=== PATIENT | female | born 1940 | race Caucasian/White ===

== ENCOUNTER → 2017-02-06 13:04 | Outpatient (CLI) | payer MEDICARE, OTHER ==
[2015-10-30 10:41] VITALS: BMI 30.6
[~2017-02-06 13:04] MED LIST: ACETAMINOPHEN500 M1 PO; ASPIRIN81 MG PO; BACTRIM DS TABL1 TAB PO; BENADRYL25 MG PO; BOUDREAUXS113 GM TP; COMBIGAN OPHT DR5 ML; COMBIGAN OPHT DR5 ML EACH EYE; COUMADIN4 MG; COUMADIN5 MG PO; DULCOLAX10 MG/SUPP RC; ELAVIL10 MG PO; FLAGYL500 MG PO; HEPARIN SOD5000 U/ML SQ; ICAPS AREDS1 TAB.SA; MELATONIN 3 MG1 TAB PO; MILK OF MAGNESI30 ML PO; MIRALAX17 GM PO; NARCAN INJ0.4 MG/ML IV; NORCO 10/325 TA1 TA1 PO; NORCO 5/325 TAB1 TA1 PO; OCUVITE PRESERV1 TAB PO; ONDANSETRON4 MG/2 M3 IV; OYSCO 500+D TAB1 TAB PO; PLAVIX75 MG PO; PRAVACHOL20 MG PO; PROCARDIA XL 3030 MG; PROCARDIA XL 3030 MG PO; PROCARDIA XL60 MG PO; PROTEIN LIQUID30 ML PO; SANTYL30 GM TP; SENOKOT-S TABLE1 TAB PO; TORADOL30 MG/ML IV; TYLENOL W/CODEI1 TAB PO; ZETIA10 MG PO; ZOFRAN4 MG PO; [UNRECOGNIZED DRUG - OTHER]; [UNRECOGNIZED DRUG - OTHER]
== END | disposition home or self-care (01) ==
LOC: D.CT 13:04
DX: I74.8 Embolism and thrombosis of other arteries (principal)

== ENCOUNTER 2017-03-05 18:29 | Observation (INO) | payer MEDICARE, OTHER ==
[~2017-03-05] VITALS: Ht 160 cm; Wt 80.0 kg
--- NOTE | 2017-03-05 19:05 | NUR ---
RECEIVED PT VIA WC FROM ADMISSIONS, PT TO ROOM 1221 PER ADMISSIONS STAFF
--- NOTE | 2017-03-05 19:09 | NUR ---
UPON ENTERING ROOM, PT IS SITTING UP IN RECLINER, PT CHANGED INTO GOWN, PT TO BED, ADMITTING ASSESSMENT, HISTORY AND MED REC INITIATED
[2017-03-05 19:38] VITALS: BP 148/72; Ht 160 cm; Wt 80.0 kg
--- NOTE | 2017-03-05 20:00 | NUR ---
ASSESSMENT, HISTORY AND MED REC COMPLETED, PT ORIENTED TO ROOM, BED IN LOW POSITION, SIDE RAILS X 2, CALL LIGHT IN REACH
--- NOTE | 2017-03-05 20:30 | NUR ---
PT OPTICS ENGINEER LIGHT, PT UP TO BR WITH ASSISTANCE, GAIT STEADY, VOIDED AND HAD BM BY SELF WITH NO DIFFICULTY, PT BACK TO BED, BED IN LOW POSITION, SIDE RAILS X 2, CALL LIGHT IN REACH
--- NOTE | 2017-03-05 21:10 | NUR ---
INFORMED PT THAT I WILL ADM MEDS WHEN RECEIVED FROM PHARMACY, PT VERBALIZES UNDERSTANDING, REQUESTED AND SERVED SANDWICH TRAY AND FRESH H20, PT DENIES FURTHER NEEDS
--- NOTE | 2017-03-05 21:12 | NUR ---
LAB TO ROOM FOR BLOOD DRAW
--- NOTE | 2017-03-05 21:16 | NUR ---
PT TO X-RAY FOR CT VIA WC
[2017-03-05 21:25] LABS: BASOPHILS 0.2 % (0-2); EOSINOPHILS 2.6 % (0-7); HEMOGLOBIN 12.7 g/dL (12-16); IMMATURE GRANULOCYTES 0.2 % (0-5); LYMPHOCYTES 38.5 % (15-50); MCH 29.9 pg (26.0-34.0); MCHC 31.8 g/dL (31.0-37.0); MCV 94.1 fL (80.0-100.0); MEAN PLATELET VOLUME 9.6 fL (7.4-10.4); NEUTROPHILS 47.5 % (40-80); PLATELET COUNT 171 10x3/uL (130-400); RBC 4.25 10x6/uL (4.00-5.40); RDW 14.1 % (11.5-14.5); WBC 4.9 10x3/uL (4.8-10.8)
--- NOTE | 2017-03-05 21:30 | NUR ---
PT BACK TO ROOM, SITTING ON SIDE OF BED TO EAT SANDWICH TRAY
[2017-03-05 21:40] LABS: ANION GAP 11.6 mmol/L (8-16); CALCIUM 8.8 mg/dL (8.5-10.1); CARBON DIOXIDE 27.5 mmol/L (21.0-32.0); CREATININE - SERUM 1.4 mg/dL (0.6-1.3); POTASSIUM - SERUM 4.1 mmol/L (3.5-5.1)
--- NOTE | 2017-03-05 21:50 | NUR ---
PT FINISHED EATING SANDWICH, LAYING BACK DOWN, SCD'S APPLIED AND WORKING PROPERLY, STATES "THAT SANDWICH WAS SO GOO, I WAS VERY HUNGRY", PT DENIES FURTHER NEEDS
--- NOTE | 2017-03-05 21:50 | NUR ---
LATE ENTRY: BED ALARM ON AND WORKING PROPERLY
--- NOTE | 2017-03-05 22:05 | NUR ---
TELEMETRY PLACED PER MD ORDERS
--- NOTE | 2017-03-05 22:14 | NUR ---
PT RESTING WITH EYES CLOSED, AROUSES TO SOFT VERBAL STIMULATION, ADM 2100 MEDS PER MD ORDERS, PT REPORTS THAT EYES DROPS HAVE TO BE ADM AT LEAST 20 MINUTES APART, INFORMED PT THAT I WILL BE BACK IN ABOUT 30 MINUTES THEN, PT VERBALIZES UNDERSTANDING, DENIES NEEDS AT THIS TIME
--- NOTE | 2017-03-05 22:20 | NUR ---
DR KELLEY TO ROOM FOR EVALUATION
--- NOTE | 2017-03-05 22:25 | NUR ---
DR KELLEY OUT OF ROOM AND AT COMPUTER
[2017-03-05] MEDS ORDERED: TRAVATAN Z2.5 ML EACH EYE (22:27)
[2017-03-05 22:45] VITALS: BP 117/61
--- NOTE | 2017-03-05 22:45 | NUR ---
PT RESTING WITH EYES CLOSED, AROUSES TO SOFT VERBAL STIMULATION, TRAVATON ADM TO BOTH EYES, PT REQUESTS THAT I TAKE VS AT THIS TIME, SO SHE CAN GET SOME REST, VS OBTAINED, PT DENIES FURTHER NEEDS OR PAIN AT THIS TIME
--- NOTE | 2017-03-06 00:05 | NUR ---
NEURO CHECK DONE, SCD'S AND BED ALARM CONTINUE ON AND WORKING PROPERLY
--- NOTE | 2017-03-06 02:00 | NUR ---
PT WARRANT SERVER LIGHT, SCD'S DISCONNECTED, PT UP TO BR WITH ASSISTANCE, VOIDED BY SELF WITH NO DIFFICULTY, PT BACK TO BED, SCD'S RECONNECTED AND WORKING PROPERLY, BED ALARM BACK ON, DENIES FURTHER NEEDS
[2017-03-06 04:20] VITALS: BP 112/52
--- NOTE | 2017-03-06 04:20 | NUR ---
PT RESTING WITH EYES CLOSED, AROUSES TO SOFT VERBAL STIMUALTION, VS OBTAINED, NEURO CHECK DONE, SCD'S DISCONNECTED, PT UP TO BR WITH ASSISTANCE, PT VOIDED BY SELF WITH NO DIFFICULTY, PT BACK TO BED, SCD'S RECONNECTED AND WORKING PROPERLY, BED ALARM ON AND WORKING PROPERLY, PT DENIES FURTHER NEEDS
--- NOTE | 2017-03-06 05:43 | NUR ---
PT RESTING WITH EYES CLOSED, RESP QUIET, NO DISTRESS NOTED, LEFT UNDISTURBED AT THIS TIME
--- NOTE | 2017-03-06 07:00 | NUR ---
SHIFT REPORT TO SOL MCKEON RN
--- NOTE | 2017-03-06 07:30 | NUR ---
PT WAS RECEIVED LYING IN BED. SHE RESTED WELL. VSS. GEN- AWAKE AND ALERT. LUNGS- CLEAR. HEART- RRR. ABD- SOFT , NONTENDER. BS+. EXT WITH SCD'S INTACT. PULSES PALPABLE. BED ALARM IS ON DUE TO PT BEING A FALL RISK. TELEMETRY INTACT. NEURO CHECK -NORMAL. BED IS LOW. SIDE RAILS UP X 2 AND CALL LIGHT IN REACH. PAIN LEVEL IS 0
[2017-03-06 07:45] VITALS: BP 137/69
--- NOTE | 2017-03-06 08:12 | NUR ---
ASSISTED PT TO BATHROOM. THEN BACK TO BED. ASSISTED WITH MENU SELECTIONS. PT REQUESTED TO REST BEFORE ANY FURTHER CARE
--- NOTE | 2017-03-06 08:23 | HP ---
PATIENT: RADHA KNIGHT MEDICAL RECORD: [id number] ACCOUNT: [id number] LOCATION:[address] : 38 ADMISSION DATE: 03/05/17 HISTORY AND PHYSICAL EXAMINATION Admission History and Physical DATE OF ADMISSION: 03/05/2017 CHIEF COMPLAINT: Headache. HISTORY OF PRESENT ILLNESS: This is a 76-year-old female, who fell yesterday at [facility] when she got caught up in a wheelchair. She hit her head on the carpeted floor. She denies loss of consciousness and she stayed for the rest of a recital there, but just felt worn out at the end of the day, and she went home. She really did not have much of a headache until this morning and it has gotten worse as the day went on. Her vision was "kind of foggy." She has been having trouble reading today, but she does have glaucoma and she states cataracts as well as macular degeneration. She sees Dr. Sharpe for her eyes. She has had some nausea, but no vomiting. She is on a baby aspirin once a day. PAST MEDICAL HISTORY: Significant for a right posterior MCA stroke and also in September 2015, she fell, hit her head and had a small intracranial hemorrhage. She is admitted for observation, neuro checks and further evaluation. PAST MEDICAL HISTORY AND PAST SURGICAL HISTORY: Arthritis, coronary artery disease, high cholesterol, hypertension, glaucoma, chronic kidney disease, history of diverticulitis, history of right posterior MCA stroke, history of small intracranial hemorrhage, status post fall in September 2015. PAST SURGICAL HISTORY: She has had cholecystectomy, hysterectomy, bilateral knee replacements, bilateral hip replacements and 2 coronary stents. HABITS: Former smoker, occasional wine. No illicit drugs. SOCIAL HISTORY: She is and retired. FAMILY HISTORY: Father at 65 of an [place]. Mother at 72 of lung cancer. REVIEW OF SYSTEMS: GENERAL: Denies fever or chills. HEENT: No sinus or allergy infection symptoms. She does have headaches and some blurry vision. She does have a history of cataracts and glaucoma. She states now some macular degeneration. CARDIOVASCULAR: No chest pain. RESPIRATORY: No cough or shortness of breath. GASTROINTESTINAL: No abdominal pain. She has had some nausea, but no vomiting. NEUROLOGIC: No blackouts, no fainting, no loss of consciousness. No tingling, memory loss or speech disorders. PHYSICAL EXAMINATION: VITAL SIGNS: Today, temperature 98.4, pulse 73, respirations 16, blood pressure 148/72, O2 sat was 98%. In my office, she was given a dose of 500 mg of Tylenol for her headache. HEENT: TMs with cerumen occlusion bilaterally. Eyes: PERRL, EOMI. HISTORY AND PHYSICAL [id number] RADHA KNIGHT Funduscopic exam is difficult with her history of cataracts and repair. NOSE AND THROAT: Okay. NECK: Supple. No JVD or bruit. Neck with no significant tenderness to palpation of the posterior neck. HEART: Regular rate and rhythm without murmur. LUNGS: Clear. ABDOMEN: Soft, flat, nontender. EXTREMITIES: Field Technical Specialist strength is 5/5 bilaterally. NEUROLOGIC: Cranial nerves, she had a history of Medina palsy, had history of stroke and she does have some mild right facial droop. Deep tendon reflexes in the upper or lower extremities are symmetric. Field Technical Specialist strength is symmetric. LABORATORY DATA: Done in the hospital tonight. CBC is all normal. Basic metabolic panel is normal except BUN is 27 and creatinine 1.4. RADIOLOGIC DATA: CT of the head and neck are pending. ASSESSMENT: Unspecified fall and with initial encounter today in my office, this fall happened on 03/04/2017 at a [facility]arsani. She is having headaches now. PLAN: We will observe, place her on telemetry, neuro checks, check CT of the head and neck. Other tests and procedures as warranted. TRANSINT:[id number] Voice Confirmation ID: [id number] DOCUMENT ID: [id number] BRENDA KELLEY MD at 0823 CC: [id number] DICTATION DATE: 03/05/172232 PANTOGRAPH MACHINE OPERATOR: 03/06/17 0146 ADM IN [facility] [address] [place] [address]
[2017-03-06] MEDS ORDERED: TYLENOL W/CODEI1 TAB PO (08:27)
--- NOTE | 2017-03-06 09:03 | NUR ---
D/C INSTRUCTIONS GIVEN AND EXPLAINED TO PT WITH RX GIVEN. . PT WAITING ON TO PICK HER UP.
--- NOTE | 2017-03-06 09:36 | NUR ---
PT STATES SHE WILL TAKE MORNING MEDS WHEN SHE GETS HOME.
--- NOTE | 2017-03-06 09:48 | NUR ---
to car via w/c . family here to drive pt home().
== END 2017-03-06 09:48 | disposition home or self-care (01) ==
LOC: D.WS 18:29 → OBSVTIME 19:05 → D.WS 03-06 09:48
PROVIDERS: ADMIT Family Medicine
DX: R51 Headache (principal); E78.5 Hyperlipidemia, unspecified; I12.9 Hypertensive chronic kidney disease with stage 1 through stage 4 chronic kidney disease, or unspecified chronic kidney disease; N18.9 Chronic kidney disease, unspecified; W18.30XA Fall on same level, unspecified, initial encounter; Y92.22 Religious institution as the place of occurrence of the external cause; Z87.891 Personal history of nicotine dependence

== ENCOUNTER 2017-09-09 13:27 | Emergency (ER) | payer MEDICARE, OTHER ==
[2017-03-05 19:38] VITALS: BMI 31.2
[~2017-09-09 13:27] MED LIST changes: +TRAVATAN Z2.5 ML EACH EYE
== END 2017-09-09 15:45 | disposition home or self-care (01) ==
LOC: D.ER 13:27
DX: S09.90XA Unspecified injury of head, initial encounter (principal); W07.XXXA Fall from chair, initial encounter; Y93.89 Activity, other specified; Y92.029 Unspecified place in mobile home as the place of occurrence of the external cause

== ENCOUNTER 2018-06-04 08:00 | Outpatient (CLI) | payer MEDICARE, OTHER ==
[2018-06-04] MEDS ORDERED: MACRODANTIN100 MG PO (08:30)
[2018-06-04 09:26] LABS: BASOPHILS 0.3 % (0-2); EOSINOPHILS 1.7 % (0-7); HEMATOCRIT 40.8 % (36.0-48.0); HEMOGLOBIN 13.6 g/dL (12-16); IMMATURE GRANULOCYTES 0.2 % (0-5); MCH 31.3 pg (26.0-34.0); MCHC 33.3 g/dL (31.0-37.0); MEAN PLATELET VOLUME 9.5 fL (7.4-10.4); NEUTROPHILS 65.8 % (40-80); PLATELET COUNT 186 10x3/uL (130-400); RBC 4.34 10x6/uL (4.00-5.40); RDW 13.3 % (11.5-14.5); WBC 5.8 10x3/uL (4.8-10.8)
[2018-06-04 09:37] LABS: ANION GAP 14.1 mmol/L (8-16); CALCIUM 9.3 mg/dL (8.5-10.1); CARBON DIOXIDE 27.4 mmol/L (21.0-32.0); POTASSIUM - SERUM 4.5 mmol/L (3.5-5.1)
[2018-06-04 10:06] LABS: APPEARANCE HAZY (CLEAR); BILIRUBIN NEGATIVE (NEGATIVE); COLOR YELLOW (YELLOW); GLUCOSE NEGATIVE (NEGATIVE); KETONE NEGATIVE (NEGATIVE); NITRITE NEGATIVE (NEGATIVE); PROTEIN NEGATIVE (NEGATIVE); SPECIFIC GRAVITY 1.015 (1.005-1.020); UROBILINOGEN NORMAL (NORMAL)
[2018-06-04 10:10] LABS: WHITE CELLS - URINE >50 /hpf (0-5)
[2018-06-04 10:11] LABS: BACTERIA MANY /hpf (NONE SEEN); HYALINE CAST OCC /lpf (NONE SEEN); RED CELLS - URINE OCC /hpf (0-5)
[2018-06-26] MEDS ORDERED: ZOFRAN ODT4 MG/UDTAB PO (13:49)
[2018-06-27 06:45] VITALS: BMI 28.0
== END 2018-06-04 08:01 | disposition home or self-care (01) ==
LOC: D.OPS 08:00 → D.PAN 06-05 08:40 → EDSTATUS 06-05 08:40 → D.OPS 06-05 10:00
PROVIDERS: Anesthesiology; Urology
DX: R39.81 Functional urinary incontinence (principal); Z01.810 Encounter for preprocedural cardiovascular examination; Z01.811 Encounter for preprocedural respiratory examination; Z01.812 Encounter for preprocedural laboratory examination

== ENCOUNTER → 2018-06-21 17:17 | Outpatient (CLI) | payer MEDICARE, OTHER ==
[2017-03-05 19:38] VITALS: BMI 31.2
[~2018-06-21 17:17] MED LIST changes: +MACRODANTIN100 MG PO; +ZOFRAN ODT4 MG/UDTAB PO
== END | disposition home or self-care (01) ==
LOC: D.CT 17:00
DX: R51 Headache (principal); R11.0 Nausea

== ENCOUNTER 2018-06-27 05:57 | Day surgery (SDC) | payer MEDICARE, OTHER ==
[2018-06-26 14:24] LABS: APPEARANCE CLEAR (CLEAR); BASOPHILS 0.4 % (0-2); COLOR YELLOW (YELLOW); EOSINOPHILS 2.1 % (0-7); HEMATOCRIT 39.6 % (36.0-48.0); HEMOGLOBIN 12.7 g/dL (12-16); IMMATURE GRANULOCYTES 0.2 % (0-5); LYMPHOCYTES 31.5 % (15-50); MCH 30.4 pg (26.0-34.0); MCHC 32.1 g/dL (31.0-37.0); MCV 94.7 fL (80.0-100.0); MEAN PLATELET VOLUME 9.2 fL (7.4-10.4); MONOCYTES 9.2 % (2-11); NEUTROPHILS 56.6 % (40-80); NITRITE NEGATIVE (NEGATIVE); PLATELET COUNT 219 10x3/uL (130-400); RBC 4.18 10x6/uL (4.00-5.40); RDW 12.7 % (11.5-14.5); SPECIFIC GRAVITY 1.015 (1.005-1.020); WBC 5.3 10x3/uL (4.8-10.8)
[2018-06-26 14:25] LABS: BILIRUBIN NEGATIVE (NEGATIVE); GLUCOSE NEGATIVE (NEGATIVE); KETONE NEGATIVE (NEGATIVE); PROTEIN NEGATIVE (NEGATIVE); UROBILINOGEN NORMAL (NORMAL)
[2018-06-26 14:31] LABS: ANION GAP 9.8 mmol/L (8-16); CALCIUM 8.9 mg/dL (8.5-10.1); CARBON DIOXIDE 28.8 mmol/L (21.0-32.0); CREATININE - SERUM 1.6 mg/dL (0.6-1.3); POTASSIUM - SERUM 4.6 mmol/L (3.5-5.1)
[~2018-06-27] VITALS: Ht 162.6 cm; Wt 73.9 kg
--- NOTE | ~2018-06-27 | OP ---
PATIENT NAME: RADHA KNIGHT MEDICAL RECORD: [id number] :36 LOCATION:D.OPS ADMISSION DATE: SURGEON: LEVI SHORE MD DATE OF OPERATION: 06/27/2018 SURGEON: Levi Shore MD ANESTHESIA: MAC. DIAGNOSIS: Urge urinary incontinence. PROCEDURE: Cystoscopy and intravesical Botox injection 100 units. FINDINGS: Single ureteral orifices bilaterally. No bladder tumors. Diffusely inflamed bladder. Cystocele grade II on the Marlin-Walker scale. BLOOD LOSS: None. CLINICAL HISTORY: This is an 78-year-old female who has urge urinary incontinence. She had a urinary tract infection at her last visit which we treated. She was also put on Myrbetriq, which did work, but she cannot afford the cost of Myrbetriq. She wishes to proceed with intravesical Botox injection. We had cardiac clearance from Dr. Rodriguez. SHE IS ALLERGIC TO PENICILLIN, DARVON, CLINDAMYCIN, LEVAQUIN, PROTEIN C, AMMONIUM LACTATE, UREA, TRAMADOL AND MORPHINE. We gave her Ancef 1 gram IV information systems supervisor to the OR. DESCRIPTION OF PROCEDURE: The patient was given IV sedation. She was placed in the dorsal lithotomy position and prepped and draped. We used a 21-Burmese cystoscope with 30-degree lens for visualization. Findings are as outlined above. At 10 different locations, we injected 1 mL of Botox solution. Each milliliter has 10 units of Botox dissolved in it. Once we were done, the bladder was emptied through the scope and the scope was removed. The patient was awakened and brought to the recovery room. I will see her in followup in 2 weeks' time to check on her voiding functions at that point. TRANSINT:[id number] Voice Confirmation ID: [id number] DOCUMENT ID: [id number] LEVI SHORE MD at 0928 CC: [id number] DICTATION DATE: 06/27/18824 ORACLE SOA ARCHITECT: 06/27/18904 [place] [id number] [place] [id number]
[2018-06-27 06:38] VITALS: BP 108/52; BMI 28.0
[2018-06-27 06:45] VITALS: BP 108/52; Ht 162.6 cm; Wt 73.9 kg
== END 2018-06-27 11:50 | disposition home or self-care (01) ==
LOC: D.OPS 05:57 → D.PAN 08:00 → D.OPS 08:00 → D.PAN 09:10 → D.OPS 09:30 → D.PAN 09:30 → D.OPS 11:50
PROVIDERS: Anesthesiology; Urology
DX: N39.41 Urge incontinence (principal); N81.10 Cystocele, unspecified; Z01.812 Encounter for preprocedural laboratory examination

== ENCOUNTER 2018-08-26 15:06 | Inpatient (IN) | payer MEDICARE, OTHER ==
[~2018-08-26] VITALS: Ht 162.6 cm; Wt 77.1 kg
--- NOTE | ~2018-08-26 | MORECARE ---
CASE MANAGEMENT DISCHARGE SUMMARY PATIENT: RADHA KNIGHT KAZ UNIT: [id number] ADM DATE: 08/26/18 AGE: 78 : 38 SEX: F ROOM/BED: D.2204 AUTHOR: KHANH BURGESS PHYSICIAN: REFERRING PHYSICIAN: SYDNIE BUCKNER MD DATE OF SERVICE: 09/03/18 Discharge Plan Patient Name: RADHA KNIGHT Facility: [facility]:[place] : 1940 Planned Disposition: Home Anticipated Discharge Date: Discharge Date: 08/30/2018 Expected LOS: 0 Initial Reviewer: [email or web address] Initial Review Date: 08/26/2018 Generated: 09/03/18 12:03 pm Comments DCP- Discharge Planning Updated by [email or web address]: Tala Denney on 08/30/18 1:[address] Patient Name: RADHA KNIGHT Encounter No: [id number] : 1940 Primary Insurance: MEDICARE A & B Anticipated DC Date: Planned Disposition: Home External Planned Provider: : DCP follow-up note: Patient and family in agreement with discharge plan. No changes to plan. IMM served and explained. Case management will follow and assist as needed. Tala Denney DCP- Discharge Planning Updated by [email or web address]: Tala Denney on 08/27/18 2:[address] Patient Name: RADHA KNIGHT Admission Status: Urgent Accout number: [id number] Admission Date: 08-26-2018 : 1940 Admission Diagnosis: Attending: SYDNIE BUCKNER Current LOS: 1 Anticipated DC Date: Planned Disposition: Home Primary Insurance: MEDICARE A & B Discharge Planning Comments: CM met with patient to assess discharge planning needs. Patient lives with her at home where she plans to return at discharge. There are 3 steps to enter her home> She has a shower chair, elevated toilet seats, shower chair, cane, walker, hand rails at home. She denies any home health at this time and does not think that she will need it at [place]. Her will be the one to take her home. CM will continue to follow and assist with DC planning needs. Social Services Director: Tala Denney DCPIA - Discharge Planning Initial Assessment Updated by [email or web address]: Tala Denney on 08/27/18 2:30 pm * Is the patient Alert and Oriented? Yes * How many steps to enter\exit or inside your home? * PCP SITA * Pharmacy [facility] * Preadmission Environment Home with Family * ADLs Independent * Equipment Bedside Commode Elevated [place] Seat Grab Bars Rolling Walker Shower Chair * List name and contact numbers for known caregivers / representatives who currently or will assist patient after discharge: VINNIE KNIGHT () [phone] * Verbal permission to speak to the caregivers and representatives has been obtained from the patient. Yes * Community resources currently utilized None * Additional services required to return to the preadmission environment? No * Can the patient safely return to the preadmission environment? Yes * Has this patient been hospitalized within the prior 30 days at any hospital? No Coverage Notice Reviewer: [email or web address] - Tala Denney Notice Issued Date-Time: 08/30/2018 13:55 Notice Type: IM Discharge Notice Notice Delivered To: Patient Relationship to Patient: Automatic Quilling Machine Operator Name: Delivery Method: HAND - Hand Delivered [place]an Days: Prior Verbal Notification: Recipient Understood Notice: Yes Recipient Signature: Yes Med Rec Note Co-signed by Attending: Coverage Notice Comment: Last DP export: 08/30/18 2:00 p Patient Name: RADHA KNIGHT Page 93952 at 1103 All edits/amendments must be made on the electronic document DICTATION DATE: 09/03/18 110 JEWELRY COATER: ANEL 09/03/18 1102 RPT#: [id number] CO DATE:08/30/18 STATUS: DIS IN [facility] [address] [place] [address] END OF REPORT
--- NOTE | ~2018-08-26 | MORECARE ---
CASE MANAGEMENT DISCHARGE SUMMARY PATIENT: RADHA KNIGHT KAZ UNIT: [id number] ADM DATE: 08/26/18 AGE: 78 : 38 SEX: F ROOM/BED: D.2205 AUTHOR: KHANH BURGESS PHYSICIAN: REFERRING PHYSICIAN: SYDNIE BUCKNER MD DATE OF SERVICE: 08/27/18 Discharge Plan Patient Name: RADHA KNIGHT Facility: [facility]:[place] : 1940 Planned Disposition: Home Anticipated Discharge Date: Discharge Date: Expected LOS: Initial Reviewer: [email or web address] Initial Review Date: 08/26/2018 Generated: 08/27/18 3:25 pm Patient Name: RADHA KNIGHT Page 18857 at 1425 All edits/amendments must be made on the electronic document DICTATION DATE: 08/27/18 142 CYLINDER BLOCK MECHANIC: ANEL 08/27/18 142 RPT#: [id number] DC DATE: STATUS: ADM IN [facility] [address] [place] [address] END OF REPORT
--- NOTE | ~2018-08-26 | MORECARE ---
CASE MANAGEMENT DISCHARGE SUMMARY PATIENT: RADHA NKIGHT KAZ UNIT: [id number] ADM DATE: 08/26/18 AGE: 78 : 38 SEX: F ROOM/BED: D.220 AUTHOR: KHANH BURGESS PHYSICIAN: REFERRING PHYSICIAN: SYDNIE BUCKNER MD DATE OF SERVICE: 08/27/18 Discharge Plan Patient Name: RADHA KNIGHT Facility: [facility]:[place] : 1940 Planned Disposition: Home Anticipated Discharge Date: Discharge Date: Expected LOS: Initial Reviewer: [email or web address] Initial Review Date: 08/26/2018 Generated: 08/27/18 3:42 pm Comments DCP- Discharge Planning Updated by [email or web address]: Tala Denney on 08/27/18 1:[address] Patient Name: RADHA KNIGHT Admission Status: Urgent Accout number: [id number] Admission Date: 08-26-2018 : 1940 Admission Diagnosis: Attending: SYDNIE BUCKNER Current LOS: 1 Anticipated DC Date: Planned Disposition: Home Primary Insurance: MEDICARE A & B Discharge Planning Comments: CM met with patient to assess discharge planning needs. Patient lives with her at home where she plans to return at discharge. There are 3 steps to enter her home> She has a shower chair, elevated toilet seats, shower chair, cane, walker, hand rails at home. She denies any home health at this time and does not think that she will need it at [place]. Her will be the one to take her home. CM will continue to follow and assist with DC planning needs. Packerhead Machine Operator: Tala Denney DCPIA - Discharge Planning Initial Assessment Updated by [email or web address]: Tala Denney on 08/27/18 2:30 pm * Is the patient Alert and Oriented? Yes * How many steps to enter\exit or inside your home? * PCP SITA * Pharmacy [facility] * Preadmission Environment Home with Family * ADLs Independent * Equipment Bedside Commode Elevated [place] Seat Grab Bars Rolling Walker Shower Chair * List name and contact numbers for known caregivers / representatives who currently or will assist patient after discharge: VINNIE KNIGHT () [phone] * Verbal permission to speak to the caregivers and representatives has been obtained from the patient. Yes * Community resources currently utilized None * Additional services required to return to the preadmission environment? No * Can the patient safely return to the preadmission environment? Yes * Has this patient been hospitalized within the prior 30 days at any hospital? No Last DP export: 08/27/18 1:33 Patient Name: RADHA KNIGHT Page 05467 at 1442 All edits/amendments must be made on the electronic document DICTATION DATE: 08/27/18 144 INVENTORY CONTROL SPECIALIST: ANEL 08/27/18 144 RPT#: [id number] [place] DATE: STATUS: ADM IN [facility] [address] [place] [address] END OF REPORT
--- NOTE | ~2018-08-26 | MORECARE ---
CASE MANAGEMENT DISCHARGE SUMMARY PATIENT: RADHA KNIGHT KAZ UNIT: [id number] ADM DATE: 08/26/18 AGE: 78 : 38 SEX: F ROOM/BED: D.2205 AUTHOR: KHANH BURGESS PHYSICIAN: REFERRING PHYSICIAN: SYDNIE BUCKNER MD DATE OF SERVICE: 08/30/18 Discharge Plan Patient Name: RADHA KNIGHT Facility: [facility]:[place] : 1940 Planned Disposition: Home Anticipated Discharge Date: Discharge Date: Expected LOS: Initial Reviewer: [email or web address] Initial Review Date: 08/26/2018 Generated: 08/30/18 3:00 pm Comments DCP- Discharge Planning Updated by [email or web address]: Tala Denney on 08/30/18 12:[address] Patient Name: RADHA KNIGHT Encounter No: [id number] : 1940 Primary Insurance: MEDICARE A & B Anticipated DC Date: Planned Disposition: Home External Planned Provider: : DCP follow-up note: Patient and family in agreement with discharge plan. No changes to plan. IMM served and explained. Case management will follow and assist as needed. Tala Denney DCP- Discharge Planning Updated by [email or web address]: Tala Denney on 08/27/18 1:[address] Patient Name: RADHA KNIGHT Admission Status: Urgent Accout number: [id number] Admission Date: 08-26-2018 : 1940 Admission Diagnosis: Attending: SYDNIE BUCKNER Current LOS: 1 Anticipated DC Date: Planned Disposition: Home Primary Insurance: MEDICARE A & B Discharge Planning Comments: CM met with patient to assess discharge planning needs. Patient lives with her at home where she plans to return at discharge. There are 3 steps to enter her home> She has a shower chair, elevated toilet seats, shower chair, cane, walker, hand rails at home. She denies any home health at this time and does not think that she will need it at [place]. Her will be the one to take her home. CM will continue to follow and assist with DC planning needs. Blocking Machine Operator: Tala Denney DCPIA - Discharge Planning Initial Assessment Updated by [email or web address]: Tala Denney on 08/27/18 2:30 pm * Is the patient Alert and Oriented? Yes * How many steps to enter\exit or inside your home? * PCP SITA * Pharmacy [facility] * Preadmission Environment Home with Family * ADLs Independent * Equipment Bedside Commode Elevated [place] Seat Grab Bars Rolling Walker Shower Chair * List name and contact numbers for known caregivers / representatives who currently or will assist patient after discharge: VINNIE KNIGHT () [phone] * Verbal permission to speak to the caregivers and representatives has been obtained from the patient. Yes * Community resources currently utilized None * Additional services required to return to the preadmission environment? No * Can the patient safely return to the preadmission environment? Yes * Has this patient been hospitalized within the prior 30 days at any hospital? No Coverage Notice Reviewer: [id number] - Tala Denney Notice Issued Date-Time: 08/30/2018 13:55 Notice Type: IM Discharge Notice Notice Delivered To: Patient Relationship to Patient: Outcome Analyst Name: Delivery Method: HAND - Hand Delivered Hodan Days: Prior Verbal Notification: Recipient Understood Notice: Yes Recipient Signature: Yes Med Rec Note Co-signed by Attending: Coverage Notice Comment: Last DP export: 08/27/18 1:42 Patient Name: RADHA KNIGHT Page 07228 at 1400 All edits/amendments must be made on the electronic document DICTATION DATE: 08/30/18 1400 HOG OPERATOR: ANEL 08/30/18 1400 RPT#: [id number] DC DATE: STATUS: ADM IN [facility] [address] [place] [address] END OF REPORT
--- NOTE | ~2018-08-26 | MORECARE ---
CASE MANAGEMENT DISCHARGE SUMMARY PATIENT: RADHA KNIGHT KAZ UNIT: [id number] ADM DATE: 08/26/18 AGE: 78 : 38 SEX: F ROOM/BED: D.2205 AUTHOR: KHANH BURGESS PHYSICIAN: REFERRING PHYSICIAN: SYDNIE BUCKNER MD DATE OF SERVICE: 08/27/18 Discharge Plan Patient Name: RADHA KNIGHT [facility] [facility] 1940 Planned Disposition: Home Anticipated Discharge Date: Discharge Date: Expected LOS: Initial Reviewer: [email or web address] Initial Review Date: 08/26/2018 Generated: 08/27/18 3:33 pm DCPIA - Discharge Planning Initial Assessment Updated by [email or web address]: Tala Denney on 08/27/18 2:30 pm * Is the patient Alert and Oriented? Yes * How many steps to enter\exit or inside your home? * PCP SITA * Pharmacy [facility] * Preadmission Environment Home with Family * ADLs Independent * Equipment Bedside Commode Elevated [place] Seat Grab Bars Rolling Walker Shower Chair * List name and contact numbers for known caregivers / representatives who currently or will assist patient after discharge: VINNIE KNIGHT () [phone] * Verbal permission to speak to the caregivers and representatives has been obtained from the patient. Yes * Community resources currently utilized None * Additional services required to return to the preadmission environment? No * Can the patient safely return to the preadmission environment? Yes * Has this patient been hospitalized within the prior 30 days at any hospital? No Last DP export: 08/27/18 1:25 Patient Name: RADHA KNIGHT Page 33332 at 1433 All edits/amendments must be made on the electronic document DICTATION DATE: 08/27/181431 EXTRUSION PRESS ADJUSTER: ANEL 08/27/181431 RPT#: [id number] DC DATE: STATUS: ADM IN [facility] [address] [place] [address] END OF REPORT
[2018-08-26] MEDS ORDERED: LUMIGAN 0.01%2.5 ML EACH EYE (15:58)
[2018-08-26] MEDS ORDERED: VOLTAREN100 GM TOPICAL (16:00)
[2018-08-26 16:01] VITALS: BP 159/68; BMI 29.2
[2018-08-26 18:35] LABS: APPEARANCE TURBID (CLEAR); BILIRUBIN NEGATIVE (NEGATIVE); COLOR YELLOW (YELLOW); GLUCOSE NEGATIVE (NEGATIVE); KETONE NEGATIVE (NEGATIVE); NITRITE POSITIVE (NEGATIVE); PROTEIN TRACE mg/dL (NEGATIVE); UROBILINOGEN NORMAL (NORMAL)
[2018-08-26 18:36] LABS: BACTERIA MANY /hpf (NONE SEEN); EPITHELIAL CELLS 0-5 /hpf (0-5); RED CELLS - URINE 0-5 /hpf (0-5); WHITE CELLS - URINE 25-50 /hpf (0-5)
[2018-08-26 21:47] VITALS: BP 142/79
[2018-08-27 04:46] LABS: BASOPHILS 0.2 % (0-2); EOSINOPHILS 2.8 % (0-7); HEMATOCRIT 37.5 % (36.0-48.0); HEMOGLOBIN 12.2 g/dL (12-16); IMMATURE GRANULOCYTES 0.2 % (0-5); LYMPHOCYTES 32.2 % (15-50); MCH 30.6 pg (26.0-34.0); MCHC 32.5 g/dL (31.0-37.0); MEAN PLATELET VOLUME 9.5 fL (7.4-10.4); MONOCYTES 9.7 % (2-11); NEUTROPHILS 54.9 % (40-80); RBC 3.99 10x6/uL (4.00-5.40); RDW 13.4 % (11.5-14.5); WBC 5.4 10x3/uL (4.8-10.8)
[2018-08-27 04:49] LABS: PLATELET COUNT 154 10x3/uL (130-400)
[2018-08-27 04:54] LABS: ANION GAP 10.9 mmol/L (8-16); CALCIUM 8.3 mg/dL (8.5-10.1); CARBON DIOXIDE 27.5 mmol/L (21.0-32.0); CREATININE - SERUM 1.6 mg/dL (0.6-1.3); POTASSIUM - SERUM 4.4 mmol/L (3.5-5.1)
[2018-08-27 05:43] VITALS: BP 156/73
[2018-08-27 08:30] VITALS: BP 156/83
[2018-08-27 10:36] VITALS: Ht 162.6 cm; Wt 77.1 kg
[2018-08-27 12:34] VITALS: BP 144/67
[2018-08-27 15:45] VITALS: BP 133/56
[2018-08-27 20:49] VITALS: BP 154/63
[2018-08-28 00:35] VITALS: BP 152/64
[2018-08-28 04:42] VITALS: BP 124/74
[2018-08-28 08:33] VITALS: BP 159/81
[2018-08-28 12:45] VITALS: BP 110/74
[2018-08-28 22:16] VITALS: BP 150/63
[2018-08-29 04:58] VITALS: BP 156/61
[2018-08-29 11:00] VITALS: BP 149/69
[2018-08-29 16:33] VITALS: BP 140/76
[2018-08-29 21:26] VITALS: BP 130/53
[2018-08-30 05:11] VITALS: BP 164/74
[2018-08-30 08:23] VITALS: BP 154/54
[2018-08-30 12:13] VITALS: BP 131/52
[2018-08-30] MEDS ORDERED: KEFLEX500 MG PO (12:44)
[2018-08-30 16:23] VITALS: BP 140/80
== END 2018-08-30 17:00 | disposition home or self-care (01) | DRG 690 ==
LOC: D.MS 15:06
PROVIDERS: Family Medicine; Student in an Organized Health Care Education/Training Program
DX: N12 Tubulo-interstitial nephritis, not specified as acute or chronic (principal); B96.20 Unspecified Escherichia coli [E. coli] as the cause of diseases classified elsewhere; B96.4 Proteus (mirabilis) (morganii) as the cause of diseases classified elsewhere; N32.0 Bladder-neck obstruction; N39.490 Overflow incontinence; I10 Essential (primary) hypertension; Z87.891 Personal history of nicotine dependence

== ENCOUNTER → 2018-11-01 18:56 | Outpatient (CLI) | payer MEDICARE, OTHER ==
[2018-08-27 10:36] VITALS: BMI 29.2
[~2018-11-01 18:56] MED LIST changes: +KEFLEX500 MG PO; +LUMIGAN 0.01%2.5 ML EACH EYE; +VOLTAREN100 GM TOPICAL
== END | disposition home or self-care (01) ==
LOC: D.LABREF 18:56
DX: R82.5 Elevated urine levels of drugs, medicaments and biological substances (principal)

== ENCOUNTER 2018-11-12 17:30 | Inpatient (IN) | payer MEDICARE, OTHER ==
[~2018-11-12] VITALS: Ht 162.6 cm; Wt 77.0 kg
[2018-11-12 18:58] LABS: BASOPHILS 0.3 % (0-2); EOSINOPHILS 2.3 % (0-7); HEMATOCRIT 41.9 % (36.0-48.0); HEMOGLOBIN 13.5 g/dL (12-16); IMMATURE GRANULOCYTES 0.6 % (0-5); LYMPHOCYTES 26.9 % (15-50); MCH 30.1 pg (26.0-34.0); MCHC 32.2 g/dL (31.0-37.0); MCV 93.5 fL (80.0-100.0); MEAN PLATELET VOLUME 9.8 fL (7.4-10.4); MONOCYTES 8.7 % (2-11); NEUTROPHILS 61.2 % (40-80); PLATELET COUNT 183 10x3/uL (130-400); RBC 4.48 10x6/uL (4.00-5.40); RDW 13.5 % (11.5-14.5); WBC 6.2 10x3/uL (4.8-10.8)
[2018-11-12 20:04] LABS: ALBUMIN 3.4 g/dL (3.4-5.0); ANION GAP 16.4 mmol/L (8-16); BILIRUBIN - TOTAL 0.48 mg/dL (0.2-1.3); CALCIUM 9.1 mg/dL (8.5-10.1); CARBON DIOXIDE 18.9 mmol/L (21.0-32.0); CREATININE - SERUM 1.9 mg/dL (0.6-1.3); POTASSIUM - SERUM 5.3 mmol/L (3.5-5.1); PROTEIN - SERUM 7.2 g/dL (6.4-8.2)
[2018-11-12 20:13] VITALS: BP 151/77
[2018-11-12 20:14] LABS: APPEARANCE CLEAR (CLEAR); COLOR YELLOW (YELLOW); SPECIFIC GRAVITY 1.015 (1.005-1.020)
[2018-11-12 20:15] LABS: BILIRUBIN NEGATIVE (NEGATIVE); GLUCOSE NEGATIVE (NEGATIVE); KETONE NEGATIVE (NEGATIVE); NITRITE NEGATIVE (NEGATIVE); PROTEIN NEGATIVE (NEGATIVE); UROBILINOGEN NORMAL (NORMAL)
[2018-11-12 21:30] VITALS: BP 147/85
--- NOTE | 2018-11-12 22:08 | NUR ---
pt resting without s/s of distress or pain noted
[2018-11-12 22:30] VITALS: BP 165/78
--- NOTE | 2018-11-12 23:00 | NUR ---
PT KEEPS TAKING BP CUFF OFF SPO2 MONITOR OFF AND REFUSES TO WEAR IT. EDUCATED PT ON THE IMPORTANCE OF WEARING MONITOR SHE STATED SHE DID NOT CARE IT HURT
[2018-11-12 23:11] LABS: CKMB 1.1 U/L (0.0-3.6); CREATINE KINASE 121 UL (21-215); TROPONIN-I < 0.017 ng/mL (0.000-0.060)
[2018-11-13] VITALS (7 sets, daily range): BP systolic 155–182; BP diastolic 65–84; Ht 162.6 cm; Wt 77.0 kg
--- NOTE | 2018-11-13 03:28 | NUR ---
IV ROCEPHIN COMPLETED AT THIS TIME
--- NOTE | 2018-11-13 06:34 | NUR ---
700CC OF URINE OUTPUT AT THIS TIME
--- NOTE | 2018-11-13 06:36 | NUR ---
NO CHANGES NOTED AT THIS TIME. PT HAS NO COMPLAINTS. IV SITE WNL. HIDALGO TO GRAVITY WITH CLEAR YELLOW URINE NOTED. PT ALERT AND ANSWERS QUESTIONS APPROPRIATELY. REPORTS TONGUE IS STILL SORE. RESP IS EVEN AND NON LABORED. WILL MONITOR
--- NOTE | 2018-11-13 07:00 | NUR ---
REPORT RECEIVED FROM PM EN, PATIENT RESTING WITH EYES CLOSED, AROUSES WITH VERBAL STIMULAS.
[2018-11-13 07:06] LABS: ANION GAP 18.9 mmol/L (8-16); CALCIUM 8.3 mg/dL (8.5-10.1); CREATININE - SERUM 1.4 mg/dL (0.6-1.3); MAGNESIUM - SERUM 2.1 mg/dL (1.8-2.4); POTASSIUM - SERUM 4.9 mmol/L (3.5-5.1)
[2018-11-13 07:14] LABS: BASOPHILS 0.5 % (0-2); EOSINOPHILS 2.2 % (0-7); HEMATOCRIT 37.5 % (36.0-48.0); HEMOGLOBIN 11.9 g/dL (12-16); IMMATURE GRANULOCYTES 0.4 % (0-5); MCH 29.8 pg (26.0-34.0); MCHC 31.7 g/dL (31.0-37.0); MCV 93.8 fL (80.0-100.0); MEAN PLATELET VOLUME 10.1 fL (7.4-10.4); NEUTROPHILS 64.9 % (40-80); RDW 13.5 % (11.5-14.5); WBC 5.6 10x3/uL (4.8-10.8)
[2018-11-13 07:17] LABS: PLATELET COUNT 133 10x3/uL (130-400)
--- NOTE | 2018-11-13 08:50 | NUR ---
DR. GIL NOTIFIED ABOUT CONSULT, STATES HE IS NOT TRAINING FACILITATOR AND IS NOT COMING TO SEE PATIENT.
--- NOTE | 2018-11-13 10:50 | NUR ---
IV RESITED 22G TO LEFT FOREARM.
--- NOTE | 2018-11-13 17:31 | NUR ---
FAMILY AT SIDE. WITHOUT CHANGES OR DISTRESS NOTED AT THIS TIME
--- NOTE | 2018-11-13 19:43 | NUR ---
RESUMING PATIENT CARE. PATIENT IS ALERT AND ORIENTED. RESPIRATIONS EVEN AND UNLABORED. NO S/S OF DISTRESS. NO C/O PAIN. PATIENT DENIES NEEDS AT TIME. CALL LIGHT WITHIN REACH. FAMILY AT BEDSIDE.
[2018-11-14] VITALS: BP 177/90
[2018-11-14 04:00] VITALS: BP 188/90
[2018-11-14 06:30] LABS: ANION GAP 15.4 mmol/L (8-16); CALCIUM 8.1 mg/dL (8.5-10.1); CARBON DIOXIDE 20.3 mmol/L (21.0-32.0); CREATININE - SERUM 1.5 mg/dL (0.6-1.3)
[2018-11-14 06:36] LABS: POTASSIUM - SERUM 3.7 mmol/L (3.5-5.1)
[2018-11-14 07:04] LABS: BASOPHILS 0 % (0-2); EOSINOPHILS 0 % (0-7); HEMATOCRIT 36.4 % (36.0-48.0); HEMOGLOBIN 11.8 g/dL (12-16); IMMATURE GRANULOCYTES 0.4 % (0-5); LYMPHOCYTES 10.2 % (15-50); MCH 29.6 pg (26.0-34.0); MCHC 32.4 g/dL (31.0-37.0); MCV 91.2 fL (80.0-100.0); MEAN PLATELET VOLUME 9.7 fL (7.4-10.4); MONOCYTES 1.4 % (2-11); PLATELET COUNT 181 10x3/uL (130-400); RBC 3.99 10x6/uL (4.00-5.40); RDW 13.3 % (11.5-14.5); WBC 5.7 10x3/uL (4.8-10.8)
[2018-11-14] MEDS ORDERED: MEDROL DOSE PACK4 MG PO (08:04)
[2018-11-14 08:25] VITALS: BP 193/95
--- NOTE | 2018-11-14 09:17 | MORECARE ---
CASE MANAGEMENT DISCHARGE SUMMARY PATIENT: RADHA KNIGHT KAZ UNIT: [id number] ADM DATE: 11/12/18 AGE: 78 : 38 SEX: F ROOM/BED: D.8626 AUTHOR: KHANH BURGESS PHYSICIAN: REFERRING PHYSICIAN: SYDNIE BUCKNER MD DATE OF SERVICE: 11/14/18 Discharge Plan Patient Name: RADHA KNIGHT Facility: [facility]:[place] : 1940 Planned Disposition: Home Anticipated Discharge Date: 11/14/18 Discharge Date: Expected LOS: 2 Initial Reviewer: [email or web address] Initial Review Date: 11/14/2018 Generated: 11/14/18 10:17 am Patient Name: RADHA KNIGHT Page [phone] at 0917 All edits/amendments must be made on the electronic document DICTATION DATE: 11/14/18916 BEHAVIORAL HEALTH THERAPIST: ANEL 11/14/18916 RPT#: [id number] DC DATE: STATUS: ADM IN [facility] [address] [place] [address] END OF REPORT
--- NOTE | 2018-11-14 09:25 | MORECARE ---
CASE MANAGEMENT DISCHARGE SUMMARY PATIENT: RADHA KNIGHT KAZ UNIT: [id number] ADM DATE: 11/12/18 AGE: 78 : 38 SEX: F ROOM/BED: D.1741 AUTHOR: ADITYA,DOC PHYSICIAN: REFERRING PHYSICIAN: SYDNIE BUCKNER MD DATE OF SERVICE: 11/14/18 Discharge Plan Patient Name: RADHA KNIGHT Facility: [facility]:[place] : 1940 Planned Disposition: Home Anticipated Discharge Date: 11/14/18 Discharge Date: Expected LOS: 2 Initial Reviewer: [email or web address] Initial Review Date: 11/14/2018 Generated: 11/14/18 10:24 am Comments DCP- Discharge Planning Updated by [email or web address]: Sharad Greene on 11/14/18 8:[address] Patient Name: RADHA KNIGHT Admission Status: ER Accout number: [id number] Admission Date: 11-12-2018 : 1940 Admission Diagnosis: Attending: SYDNIE BUCKNER Current LOS: 2 Anticipated DC Date: 11-14-2018 Planned Disposition: Home Primary Insurance: MEDICARE A & B Discharge Planning Comments: CM MET WITH PT IN ROOM TO DISCUSS DISCHARGE PLANNING AND NEEDS. PT REPORTS LIVING AT HOME INDEPENDENTLY WITH SPOUSE. PT HAS BEDSIDE COMMODE, CANE, ELEVATED TOILET SEAT, GRAB BARS IN BATHROOM, ROLLING WALKER WITH SEAT AND BRAKES WELL SHOWER CHAIR FROM [facility]. PT HAS NO OUTSIDE SERVICES ASSISTING IN THE HOME. CM DISCUSSED AVAILABILITY OF HOME HEALTH, REHAB SERVICES AND MEDICAL EQUIPMENT. 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 PT DENIES DISCHARGE NEEDS, REPORTS HER SPOUSE WILL PICK HER UP FOR DISCHARGE HOME. FORK REPAIRER NURSE NOTIFIED. Casing Sewer: Sharad Greene DCPIA - Discharge Planning Initial Assessment Updated by [email or web address]: Sharad Greene on 11/14/18 9:19 am * Is the patient Alert and Oriented? Yes * How many steps to enter\exit or inside your home? NONE * PCP DR. BUCKNER * Pharmacy [facility] [place] * Preadmission Environment Home with Family * ADLs Independent * Equipment Bedside Commode Cane Elevated [place] Seat Grab Bars Rolling Walker Shower Chair * Other Equipment [facility] - MEDICAL EQUIPMENT PROVIDER * List name and contact numbers for known caregivers / representatives who currently or will assist patient after discharge: VINNIE KNIGHT, SPOUSE, * Verbal permission to speak to the caregivers and representatives has been obtained from the patient. N/A * Community resources currently utilized None * Please name any agencies selected above. NONE * Additional services required to return to the preadmission environment? No * Can the patient safely return to the preadmission environment? Yes * Has this patient been hospitalized within the prior 30 days at any hospital? No Last DP export: 11/14/18 8:17 a Patient Name: RADHA KNIGHT Page [phone] at 0925 All edits/amendments must be made on the electronic document DICTATION DATE: 11/14/18923 ELECTRONICS MECHANIC: ANEL 11/14/18923 RPT#: [id number] DC DATE: STATUS: ADM IN [facility] [address] [place] [address] END OF REPORT
--- NOTE | 2018-11-14 10:19 | NUR ---
PT DISCHARGED. IV DCD WITH TIP INTACT. HIDALGO CATH DCD. INSTRUCTIONS GIVEN.
--- NOTE | 2018-11-14 10:39 | NUR ---
TO PRIVATE CAR PER WHEEL CHAIR.
== END 2018-11-14 10:40 | disposition home or self-care (01) | DRG 606 ==
LOC: D.ER 17:30 → D.EDHOLD 23:14 → D.M2 23:14
PROVIDERS: Emergency Medicine; Family Medicine; ADMIT Family Medicine
DX: R22.0 Localized swelling, mass and lump, head (principal); G93.41 Metabolic encephalopathy; T37.0X5A Adverse effect of sulfonamides, initial encounter; I12.9 Hypertensive chronic kidney disease with stage 1 through stage 4 chronic kidney disease, or unspecified chronic kidney disease; N18.3 Chronic kidney disease, stage 3 (moderate); N28.9 Disorder of kidney and ureter, unspecified; Z86.73 Personal history of transient ischemic attack (TIA), and cerebral infarction without residual deficits

== ENCOUNTER → 2018-11-27 18:53 | Outpatient (CLI) | payer MEDICARE, OTHER ==
[2018-11-13 17:27] VITALS: BMI 42.6
[~2018-11-27 18:53] MED LIST changes: +MEDROL DOSE PACK4 MG PO
== END | disposition home or self-care (01) ==
LOC: D.LABREF 18:53
DX: D72.829 Elevated white blood cell count, unspecified (principal); R31.9 Hematuria, unspecified

== ENCOUNTER 2018-12-26 14:04 | Inpatient (IN) | payer MEDICARE, OTHER ==
[2018-12-25 20:00] VITALS: BP 130/64
[2018-12-26] VITALS: BP 162/75
[~2018-12-26] VITALS: Ht 162.6 cm; Wt 77.1 kg
[2018-12-26 14:53] VITALS: BP 129/59
[2018-12-26 15:24] LABS: BASOPHILS 0.2 % (0-2); EOSINOPHILS 0.7 % (0-7); HEMOGLOBIN 12.3 g/dL (12-16); IMMATURE GRANULOCYTES 0.4 % (0-5); LYMPHOCYTES 20.4 % (15-50); MCH 29.6 pg (26.0-34.0); MCHC 31.5 g/dL (31.0-37.0); MCV 93.8 fL (80.0-100.0); MEAN PLATELET VOLUME 9.6 fL (7.4-10.4); MONOCYTES 7.3 % (2-11); PLATELET COUNT 165 10x3/uL (130-400); RBC 4.16 10x6/uL (4.00-5.40); RDW 14.2 % (11.5-14.5); WBC 4.5 10x3/uL (4.8-10.8)
[2018-12-26 15:53] LABS: ANION GAP 18.1 mmol/L (8-16); CARBON DIOXIDE 22.1 mmol/L (21.0-32.0); CREATININE - SERUM 1.9 mg/dL (0.6-1.3); POTASSIUM - SERUM 4.2 mmol/L (3.5-5.1)
--- NOTE | 2018-12-26 18:25 | NUR ---
PT RESTING IN BED. PRODUCTIVE COUGH NOTED WITH GREEN/YELLOW SPUTUM. NO S/S OF ACUTE DISTRESS. FAMILY AT BEDSIDE.
--- NOTE | 2018-12-26 18:28 | NUR ---
EDILMA TOOK OFF 5 RINGS, BRACELET AND EARRINGS FOR THE PT.
--- NOTE | 2018-12-26 19:45 | NUR ---
PT RESTING IN BED. ALERT AND ORIENTED. NO SIGNS OF DISTRESS. BREATHING EVEN AND UNLABORED. PT STATES NO PROBLEMS AT THIS TIME. IV SITE LT HAND DRESSING CLEAN DRY AND INTACT. NO SIGNS OF INFECTION. SKIN CLEAN DRY AND INTACT. BOWEL SOUNDS ACTIVE. 1LO2 NASAL CANNULA. NO LOWER LEG SWELLING PRESENT. WILL CONTINUE PLAN OF CARE. CALL LIGHT IN REACH. PT IS A FALL RISK BUT REFUSES BED ALARM OR MAREK. FORM SIGNED IN THE CHART. BED LOWERED AND LOCKED. BED RAILS UP X1.
--- NOTE | 2018-12-26 21:30 | NUR ---
PT IV INFULTRATED. DID NOT RESTART IV DUE TO IT TAKING 4 NURSES WITH NO SUCCESS ON TRYING TO START ONE TODAY. VASCULAR NURSE STARTED THIS ONE AND NOW IT IS INFULTRATED. WILL CONTACT VASCULAR NURSE AGAIN IN AM TO GET A IV.
--- NOTE | 2018-12-26 21:30 | NUR ---
PT IV INFULTRATED. WILL WAIT TILL MORNING TO HAVE VASCULAR NURSE PLACE A NEW ONE. DUE TO 4 NURSES TRYING TO START IV TODAY AND THE ONLY ONE THAT GOT A IV WAS THE VASCULAR NURSE WHICH THE SITE HAS NOW INFULTRATED. WILL FALLOW UP.
--- NOTE | 2018-12-27 03:25 | NUR ---
RESTING QUITELY IN BED RESP UNLABORED NO APPARENT DISTRESS CALL LIGHT IN REACH
[2018-12-27 04:00] VITALS: BP 155/64
[2018-12-27 05:06] LABS: BASOPHILS 0.2 % (0-2); EOSINOPHILS 1.7 % (0-7); HEMATOCRIT 36.3 % (36.0-48.0); HEMOGLOBIN 11.5 g/dL (12-16); IMMATURE GRANULOCYTES 0.2 % (0-5); LYMPHOCYTES 22.5 % (15-50); MCH 29.5 pg (26.0-34.0); MCHC 31.7 g/dL (31.0-37.0); MCV 93.1 fL (80.0-100.0); MEAN PLATELET VOLUME 9.8 fL (7.4-10.4); MONOCYTES 11.5 % (2-11); NEUTROPHILS 63.9 % (40-80); PLATELET COUNT 157 10x3/uL (130-400); RDW 14.2 % (11.5-14.5); WBC 4.1 10x3/uL (4.8-10.8)
[2018-12-27 05:20] LABS: CALCIUM 8.5 mg/dL (8.5-10.1); CARBON DIOXIDE 22.1 mmol/L (21.0-32.0); CREATININE - SERUM 1.7 mg/dL (0.6-1.3); POTASSIUM - SERUM 4.1 mmol/L (3.5-5.1)
--- NOTE | 2018-12-27 08:21 | NUR ---
EYES CLOSED, EVEN UNLABORED BREATHING, O2 A 1LPM VIA NC, NO IV, CALLED VASCULAR ACCESS AND SPOKE WITH CRISTHIAN, DIFFICULT STICK D/T SMALL VEINS AND MULTIPLE ATTEMPTS MADE WITH YESSCOTTY'S STAFF, EASILY AROUSE, EVEN UNLABORED BREATHING, DENIES ANY OTHER NEEDS OR DISCOMFORTS, BED LOWERED AND LOCKED. CALL LIGHT WITHIN REACH. CPOC
[2018-12-27 08:31] VITALS: BP 128/65
--- NOTE | 2018-12-27 09:31 | NUR ---
GONE TO MRI
--- NOTE | 2018-12-27 11:07 | NUR ---
PT WAS REFUSING EYE DROPS D/T THOSE NOT BEING WHAT SHE TOOK AT HOME. CALLED AND SPOKED WITH ROMULO IN PHARMACY, WE HAVE SUBSITITUED HER COMBIGAN WITH THE COMBINATION OF TIMOLOL AND BRIMONIDINE TARTRATE TOGETHER, AND THE LUMIGAN WITH LATANOPROST. EXPLAINED TO PT AND VERBALIZED UNDERSTANDING OF THE SUBSTITUTION. DENIES ANY CURRENT NEEDS OR DISCOMFORTS, BED LOWERED AND LOCKED, CALL LIGHT WITHIN REACH. CPOC
[2018-12-27 12:09] VITALS: BP 132/61
[2018-12-27 12:37] VITALS: Ht 162.6 cm; Wt 77.1 kg
--- NOTE | 2018-12-27 13:33 | NUR ---
SITTING UP ON SIDE OF BED, AWAKE AND ALERT, ON ROOM AIR, IV IN RIGHT HAND, PATENT, INFUSING FLUIDS, DENIES ANY CURRENT NEEDS OR DISCOMFORTS, BED LOWERED AND LOCKED, CALL LIGHT WITHIN REACH. CPOC
--- NOTE | 2018-12-27 13:59 | NUR ---
I have reviewed this patient and I concur with the Shift Assessment completed by the Licensed Practical Nurse today this shift.
[2018-12-27 15:35] VITALS: BP 122/61
--- NOTE | 2018-12-27 16:46 | NUR ---
AMBULATORY, UP WALKING AROUND ROOM, IV IN RIGHT HAND, PATENT, INFUSING FLUIDS AT 50ML/HR. ON ROOM AIR, DENIES ANY CURRENT NEEDS OR DISCOMFORTS, BED LOWERED AND LOCKED, CALL LIGHT WITHIN REACH. CPOC
--- NOTE | 2018-12-27 16:59 | MORECARE ---
CASE MANAGEMENT DISCHARGE SUMMARY PATIENT: RADHA ALMANZAR KAZ UNIT: [id number] ADM DATE: 12/27/18 AGE: 78 : 38 SEX: F ROOM/BED: D.2235 AUTHOR: ADITYA,DOC PHYSICIAN: REFERRING PHYSICIAN: SYDNIE BUCKNER MD DATE OF SERVICE: 12/27/18 Discharge Plan Patient Name: RADHA ALMANZAR Facility: [facility]:[place] : 1940 Planned Disposition: Home Anticipated Discharge Date: Discharge Date: Expected LOS: Initial Reviewer: [email or web address] Initial Review Date: 12/27/2018 Generated: 12/27/18 5:59 pm Comments DCP- Discharge Planning Updated by [id number]: Niharika Blackwell on 12/27/18 3:[address] Patient Name: RADHA ALMANZAR Admission Status: Urgent Accout number: [id number] Admission Date: 12-27-2018 : 1940 Admission Diagnosis: Attending: SYDNIE BUCKNER Current LOS: 1 Anticipated DC Date: Planned Disposition: Home Primary Insurance: MEDICARE A & B Discharge Planning Comments: CM met with patient to complete initial dc planning assessment. CM educated patient on the CM role and verbal consent given by patient to complete assessment. Patient lives at home with her . At discharge patient plans to return and feels this is a safe discharge. States she uses her cane or walker for ambulation and she no longer drives, otherwise she is independent with her ADL's. States she has many grand children that can take her home on discharge since her is hospitalized at this time. CM discussed availability of home health, rehab services, and medical equipment. Patient denied known discharge needs at this time. CM will continue to follow and will assist as needed with dc plans/needs. Compensation Manager: Niharika Blackwell DCPIA - Discharge Planning Initial Assessment Updated by [id number]: Niharika Blackwell on 12/27/18 4:57 pm * Is the patient Alert and Oriented? Yes * How many steps to enter\exit or inside your home? 0/0 * PCP Dr. Buckner * Pharmacy [place] * Preadmission Environment Home with Family * ADLs Partial Dependent * Partial ADLs (Assistance needed) Ambulation * Equipment Cane Elevated [place] Seat Grab Bars Other Rolling Walker Shower Chair * Other Equipment Rollator walker * List name and contact numbers for known caregivers / representatives who currently or will assist patient after discharge: Sarkis Almanzar - [facility] - [phone] * Verbal permission to speak to the caregivers and representatives has been obtained from the patient. Yes * Community resources currently utilized None * Additional services required to return to the preadmission environment? No * Can the patient safely return to the preadmission environment? Yes * Has this patient been hospitalized within the prior 30 days at any hospital? No Patient Name: RADHA ALMANZAR Page [phone] at 1659 All edits/amendments must be made on the electronic document DICTATION DATE: 12/27/181658 ONCOLOGY REGISTRAR: ANEL 12/27/181658 RPT#: [id number] DC DATE: STATUS: ADM IN [facility] [address] [place] [address] END OF REPORT
--- NOTE | 2018-12-27 19:04 | NUR ---
LAYING IN BED, EVEN UNLABORED BREATHING, OCCASIONAL COUGH, IV IN RIGHT HAND, PATENT, SOME LEAKAGE AROUND SITE FROM GETTING PULLED EARLY WHILE GETTING OUT OF BED, DENIES ANY CURRENT NEEDS, BED LOWERED AND LOCKED, CALL LIGHT WITHIN REACH. CPOC
--- NOTE | 2018-12-27 19:15 | NUR ---
RECEIVED CARE FROM DAY NURSE. SITTING UP IN BED WATCHING TV. REPORTS NO NEEDS AT THIS TIME. CALL LIGHT AT SIDE.
[2018-12-27 20:08] VITALS: BP 154/77
--- NOTE | 2018-12-27 20:25 | NUR ---
IV IN RIGHT HAND LEAKING AND PAINFUL. DC'D WITH TIP INTACT. RESITED TO LEFT FA. 22 GAUGE X1 STICK WITH GOOD BLOOD RETRUN NOTED.
--- NOTE | 2018-12-28 | NUR ---
RFEUSED MIDNIGHT VITALS
--- NOTE | 2018-12-28 01:42 | NUR ---
I have reviewed this patient and I concur with the Shift Assessment completed by the Licensed Practical Nurse today this shift.
[2018-12-28 07:10] LABS: BASOPHILS 0.8 % (0-2); EOSINOPHILS 2.3 % (0-7); HEMATOCRIT 33.6 % (36.0-48.0); HEMOGLOBIN 10.7 g/dL (12-16); LYMPHOCYTES 31.2 % (15-50); MCH 29.4 pg (26.0-34.0); MCHC 31.8 g/dL (31.0-37.0); MCV 92.3 fL (80.0-100.0); MEAN PLATELET VOLUME 9.9 fL (7.4-10.4); MONOCYTES 9.9 % (2-11); NEUTROPHILS 55.8 % (40-80); PLATELET COUNT 152 10x3/uL (130-400); RBC 3.64 10x6/uL (4.00-5.40); WBC 3.9 10x3/uL (4.8-10.8)
[2018-12-28 07:43] LABS: ANION GAP 15.7 mmol/L (8-16); CALCIUM 7.9 mg/dL (8.5-10.1); CARBON DIOXIDE 21.1 mmol/L (21.0-32.0); CREATININE - SERUM 1.5 mg/dL (0.6-1.3); POTASSIUM - SERUM 3.8 mmol/L (3.5-5.1)
--- NOTE | 2018-12-28 08:07 | NUR ---
sitting up in chair, shallow respirations, AAOx4. iv in left forearm, patent, infusing fluids at 50ml/hr. productive cough, yellow tinged sputum, glasses present, non-slip socks applied, telemetry present, denies any current needs or discomforts, bed lowered and locked, call light within reach. cpoc
[2018-12-28 08:08] VITALS: BP 135/55
--- NOTE | 2018-12-28 12:52 | NUR ---
IV INFILITRATED IN LEFT FOREARM. IV DISCONTINUED, CATHTER TIP INTACT. GAUZE AND TAPE APPLIED TO INSERTION SITE. PT REQUEST NO IV AT CURRENT TIME. BUT WILL ALLOW ME TO RESTART ONE TODAY. DENIES ANY OTHER NEEDS OR DISCOMFORTS, BED LOWERED AND LOCKED, CALL LIGHT WITHIN REACH. CPOC
--- NOTE | 2018-12-28 19:15 | NUR ---
RECEIVED CARE FROM DAY NURSE. LYING IN BED WATCHING TV. REPORTS NO NEEDS AT THIS TIME. CALL LIGHT AT SIDE. NO IV.
[2018-12-28 20:01] VITALS: BP 147/70
--- NOTE | 2018-12-29 02:56 | NUR ---
I have reviewed this patient and I concur with the Shift Assessment completed by the Licensed Practical Nurse today this shift.
[2018-12-29 04:09] VITALS: BP 128/61
[2018-12-29 05:39] LABS: BASOPHILS 0.6 % (0-2); EOSINOPHILS 3.2 % (0-7); HEMATOCRIT 36.9 % (36.0-48.0); HEMOGLOBIN 11.6 g/dL (12-16); IMMATURE GRANULOCYTES 0.4 % (0-5); LYMPHOCYTES 27.8 % (15-50); MCH 29.1 pg (26.0-34.0); MCHC 31.4 g/dL (31.0-37.0); MCV 92.5 fL (80.0-100.0); MONOCYTES 7.4 % (2-11); NEUTROPHILS 60.6 % (40-80); PLATELET COUNT 182 10x3/uL (130-400); RBC 3.99 10x6/uL (4.00-5.40); RDW 14.1 % (11.5-14.5)
[2018-12-29 05:58] LABS: ANION GAP 14.1 mmol/L (8-16); CALCIUM 8.5 mg/dL (8.5-10.1); CARBON DIOXIDE 20.7 mmol/L (21.0-32.0); CREATININE - SERUM 1.4 mg/dL (0.6-1.3); POTASSIUM - SERUM 3.8 mmol/L (3.5-5.1)
[2018-12-29 08:32] VITALS: BP 132/71
--- NOTE | 2018-12-29 10:43 | NUR ---
SITTING IN CHAIR, EVEN UNLABORED BREATHING, ON ROOM AIR, NO IV ACCESS, GLASSES PRESENT, USES CANE FOR AMBULATION WITH STAND BY ASSIT, DENIES ANY CURRENT NEEDS OR DISCOMFORTS, BED LOWERED AND LOCKED, CALL LIGHT WITHIN REACH. CPOC
--- NOTE | 2018-12-29 15:38 | NUR ---
REQUESTED PRN MIRALAX FOR CONSTIPATION. ON ROOM AIR, PRODUCTIVE COUGH CONTINUES, DENIES ANY CURRENT NEEDS, SITTING UP RIGHT IN CHAIR, WHEELS LOCKED, CALL LIGHT WITHIN REACH. CPOC
[2018-12-29 17:16] VITALS: BP 138/72
--- NOTE | 2018-12-29 19:15 | NUR ---
RECEIVED CARE FROM DAY NURSE. AMBULATING IN ROOM. REPORTS NO NEEDS. CALL LIGHT WITHIN REACH.
--- NOTE | 2018-12-29 19:15 | NUR ---
RECIEVED CARE FROM DAY NURSE. LYING IN BED. NO DISTRESS NOTED. CALL LIGHT AT SIDE. IV IN PLACE AND INTACT.
--- NOTE | 2018-12-29 19:36 | NUR ---
I have reviewed this patient and I concur with the Shift Assessment completed by the Licensed Practical Nurse today this shift.
[2018-12-29 20:23] VITALS: BP 120/59
[2018-12-30 00:18] VITALS: BP 136/67
--- NOTE | 2018-12-30 02:44 | NUR ---
I have reviewed this patient and I concur with the Shift Assessment completed by the Licensed Practical Nurse today this shift.
[2018-12-30 04:27] VITALS: BP 140/65
[2018-12-30 07:20] LABS: BASOPHILS 0.2 % (0-2); EOSINOPHILS 2.5 % (0-7); HEMATOCRIT 35.6 % (36.0-48.0); HEMOGLOBIN 11.2 g/dL (12-16); IMMATURE GRANULOCYTES 0.4 % (0-5); LYMPHOCYTES 29.5 % (15-50); MCH 29.2 pg (26.0-34.0); MCHC 31.5 g/dL (31.0-37.0); MCV 92.7 fL (80.0-100.0); MONOCYTES 8.1 % (2-11); NEUTROPHILS 59.3 % (40-80); PLATELET COUNT 190 10x3/uL (130-400); RBC 3.84 10x6/uL (4.00-5.40); RDW 14.2 % (11.5-14.5); WBC 4.8 10x3/uL (4.8-10.8)
--- NOTE | 2018-12-30 07:30 | NUR ---
PATIENT ADMITTED WITH PHNEUMONIA AND BRONCHITIS. RESPIRATIONS REGULAR AND NONLABORED, CLEAR WITH OCCASIONAL COUGH. PATIENT ANTICIPATES DISCHARGE TODAY
[2018-12-30] MEDS ORDERED: ALBUTEROL SULF8.5 GM INH (08:00)
[2018-12-30] MEDS ORDERED: VIBRAMYCIN 100100 MG PO (08:01)
[2018-12-30] MEDS ORDERED: MUCINEX600 MG PO (08:02)
[2018-12-30] MEDS ORDERED: ALPHAGAN 0.2%5 ML OP (08:03)
[2018-12-30] MEDS ORDERED: XALATAN 0.0052.5 ML EACH EYE (08:03)
[2018-12-30] MEDS ORDERED: TIMOPTIC 0.5 % O5 ML OP (08:04)
[2018-12-30 08:22] VITALS: BP 139/69
[2018-12-30 08:22] LABS: CALCIUM 8.6 mg/dL (8.5-10.1); CARBON DIOXIDE 22.3 mmol/L (21.0-32.0); CREATININE - SERUM 1.2 mg/dL (0.6-1.3); POTASSIUM - SERUM 4.3 mmol/L (3.5-5.1)
--- NOTE | 2018-12-30 08:58 | MORECARE ---
CASE MANAGEMENT DISCHARGE SUMMARY PATIENT: RADHA ALMANZAR KAZ UNIT: [id number] ADM DATE: 12/27/18 AGE: 78 : 38 SEX: F ROOM/BED: D.2235 AUTHOR: KHANH BURGESS PHYSICIAN: REFERRING PHYSICIAN: SYDNIE BUCKNER MD DATE OF SERVICE: 12/30/18 Discharge Plan Patient Name: RADHA ALMANZAR Facility: [facility]:[place] : 1940 Planned Disposition: Home Anticipated Discharge Date: Discharge Date: Expected LOS: Initial Reviewer: [email or web address] Initial Review Date: 12/27/2018 Generated: 12/30/18 9:57 am Comments DCP- Discharge Planning Updated by [id number]: Niharika Blackwell on 12/30/18 7:[address] Patient Name: RADHA ALMANZAR Encounter No: [id number] : 1940 Primary Insurance: MEDICARE A & B Anticipated DC Date: Planned Disposition: Home External Planned Provider: : DCP follow-up note: Patient in agreement with discharge plan. I informed her that Dr. Buckner has ordered her to have home health. She declines, states her "daughter in law is going to stay with me for a little while." States she has had home health, she knows what it is and does not want it. Refusal for home health signed. States she will have family pick her up. No changes to plan. Case management will follow and assist as needed. Niharika Blackwell DCP- Discharge Planning Updated by [id number]: Niharika Blackwell on 12/27/18 3:[address] Patient Name: RADHA ALMANZAR Admission Status: Urgent Accout number: [id number] Admission Date: 12-27-2018 : 1940 Admission Diagnosis: Attending: SYDNIE BUCKNER Current LOS: 1 Anticipated DC Date: Planned Disposition: Home Primary Insurance: MEDICARE A & B Discharge Planning Comments: CM met with patient to complete initial dc planning assessment. CM educated patient on the CM role and verbal consent given by patient to complete assessment. Patient lives at home with her . At discharge patient plans to return and feels this is a safe discharge. States she uses her cane or walker for ambulation and she no longer drives, otherwise she is independent with her ADL's. States she has many grand children that can take her home on discharge since her is hospitalized at this time. CM discussed availability of home health, rehab services, and medical equipment. Patient denied known discharge needs at this time. CM will continue to follow and will assist as needed with dc plans/needs. Lang Interpreter: Niharika Blackwell DCPIA - Discharge Planning Initial Assessment Updated by [email or web address]: Niharika Blackwell on 12/27/18 4:57 pm * Is the patient Alert and Oriented? Yes * How many steps to enter\\exit or inside your home? 0/0 * PCP Dr. Buckner * Pharmacy [facility] * Preadmission Environment Home with Family * ADLs Partial Dependent * Partial ADLs (Assistance needed) Ambulation * Equipment Cane Elevated [place] Seat Grab Bars Other Rolling Walker Shower Chair * Other Equipment Rollator walker * List name and contact numbers for known caregivers / representatives who currently or will assist patient after discharge: Sarkis Almanzar - [facility] - [phone] * Verbal permission to speak to the caregivers and representatives has been obtained from the patient. Yes * Community resources currently utilized None * Additional services required to return to the preadmission environment? No * Can the patient safely return to the preadmission environment? Yes * Has this patient been hospitalized within the prior 30 days at any hospital? No Coverage Notice Reviewer: [email or web address] - Niharika Rishi Notice Issued Date-Time: 12/30/2018 8:52 Notice Type: IM Discharge Notice Notice Delivered To: Patient Relationship to Patient: Self Software Integration Developer Name: Delivery Method: HAND - Hand Delivered Hodan Days: Prior Verbal Notification: Recipient Understood Notice: Yes Recipient Signature: Yes Med Rec Note Co-signed by Attending: Coverage Notice Comment: IMM explained, signed, given, copy placed in MR Last DP export: 12/27/18 3:59 pm Patient Name: RADHA ALMANZAR Page [id number] at 0858 All edits/amendments must be made on the electronic document DICTATION DATE: 12/30/18856 TIRE INSTALLER: ANEL 12/30/18856 RPT#: [id number] DC DATE: STATUS: ADM IN [facility] [address] [place] [address] END OF REPORT
== END 2018-12-30 11:35 | disposition home or self-care (01) | DRG 204 ==
LOC: OBSVTIME 14:04 → D.MS 14:04
PROVIDERS: ADMIT Family Medicine; ATTEND Family Medicine
DX: R06.03 Acute respiratory distress (principal); J20.9 Acute bronchitis, unspecified; E86.0 Dehydration; F44.89 Other dissociative and conversion disorders; N28.9 Disorder of kidney and ureter, unspecified

== ENCOUNTER → 2019-09-18 09:59 | Outpatient (CLI) | payer MEDICARE, OTHER ==
[2018-12-27 12:37] VITALS: BMI 29.2
[~2019-09-18 09:59] MED LIST changes: +ALBUTEROL SULF8.5 GM INH; +ALPHAGAN 0.2%5 ML OP; +MUCINEX600 MG PO; +TIMOPTIC 0.5 % O5 ML OP; +VIBRAMYCIN 100100 MG PO; +XALATAN 0.0052.5 ML EACH EYE
== END | disposition home or self-care (01) ==
LOC: D.RAD 09:59
PROVIDERS: ATTEND Internal Medicine Gastroenterology
DX: K92.1 Melena (principal); K59.00 Constipation, unspecified; Z86.010 Personal history of colon polyps

== ENCOUNTER 2019-10-31 11:45 | Inpatient (IN) | payer MEDICARE, OTHER ==
[~2019-10-31] VITALS: Ht 162.6 cm; Wt 73.1 kg
--- NOTE | 2019-10-31 12:10 | NUR ---
TRAUMA BAND [id number] IN PLACE PER EMS
[2019-10-31 13:59] LABS: BASOPHILS 0.1 % (0-2); EOSINOPHILS 0.7 % (0-7); HEMATOCRIT 38.8 % (36.0-48.0); HEMOGLOBIN 12.6 g/dL (12-16); IMMATURE GRANULOCYTES 0.1 % (0-5); LYMPHOCYTES 19.4 % (15-50); MCH 30.4 pg (26.0-34.0); MCHC 32.5 g/dL (31.0-37.0); MCV 93.5 fL (80.0-100.0); MEAN PLATELET VOLUME 9.3 fL (7.4-10.4); MONOCYTES 8.8 % (2-11); NEUTROPHILS 70.9 % (40-80); PLATELET COUNT 207 10x3/uL (130-400); RBC 4.15 10x6/uL (4.00-5.40); RDW 13.2 % (11.5-14.5); WBC 6.9 10x3/uL (4.8-10.8)
[2019-10-31 14:09] LABS: APTT 20.6 SECONDS (22.8-39.4)
[2019-10-31 14:10] LABS: INR 1.02 (0.85-1.17); PROTIME 12.9 SECONDS (11.6-15.0)
[2019-10-31 14:11] LABS: CALC OSMOLALITY 294 mosm/kg (275-300); CALCIUM 8.9 mg/dL (8.5-10.1); CARBON DIOXIDE 24.2 mmol/L (21.0-32.0); CHLORIDE - SERUM 109 mmol/L (98-107); CREATININE - SERUM 1.3 mg/dL (0.6-1.3); GLUCOSE 96 mg/dL (74-106); SODIUM 144 mmol/L (136-145); UREA NITROGEN 35 mg/dL (7-18); eGFR NON AFRICAN AMERICAN 42 mL/min (90-120)
--- NOTE | 2019-10-31 14:17 | NUR ---
ASSISTED PT WITH BEDPAN AT THIS TIME. DENIES FURTHER NEEDS.
[2019-10-31 14:26] LABS: ALBUMIN 3.4 g/dL (3.4-5.0); ALKALINE PHOSPHATASE 92 U/L (46-116); ALT (SGPT) 22 U/L (10-68); BILIRUBIN - TOTAL 0.57 mg/dL (0.2-1.3); CKMB 1.4 U/L (0.0-3.6); CREATINE KINASE 65 UL (21-215); MAGNESIUM - SERUM 2.3 mg/dL (1.8-2.4); PROTEIN - SERUM 6.4 g/dL (6.4-8.2); TROPONIN-I < 0.017 ng/mL (0.000-0.060)
--- NOTE | 2019-10-31 15:19 | NUR ---
URINE TO LAB AT THIS TIME.
--- NOTE | 2019-10-31 15:38 | NUR ---
PT/FAMILY EXPRESS DISSATISFACTION WITH WAIT TIMES. STATES PT DOESN'T EAT BREAKFAST ET SHE MISSED LUNCH BECAUSE SHE WAS IN THE ED. PT STATES IS VERY HUNGRY. MEAL TRAY ORDERED. ERP UPDATED ON PT DISSATISFACTION.
[2019-10-31 15:46] LABS: APPEARANCE HAZY (CLEAR); BILIRUBIN NEGATIVE (NEGATIVE); COLOR YELLOW (YELLOW); GLUCOSE NEGATIVE (NEGATIVE); KETONE NEGATIVE (NEGATIVE); NITRITE POSITIVE (NEGATIVE); PROTEIN NEGATIVE (NEGATIVE); UROBILINOGEN NORMAL (NORMAL)
[2019-10-31 15:47] LABS: BACTERIA MANY /hpf (NEGATIVE); EPITHELIAL CELLS 0-5 /hpf (0-5); RED CELLS - URINE 0-5 /hpf (0-5)
--- NOTE | 2019-10-31 18:21 | NUR ---
RECIVED FROM ER PER BED TO ROOM 211. ADMIT ASSESSMENT DONE PER RN
--- NOTE | 2019-10-31 19:10 | NUR ---
BEDSIDE REPORT RECEIVED FROM DAY SHIFT, PT CARE ASSUMED. INTRODUCED SELF AND WROTE NAME ON BOARD. PT LYING IN BED WITH EYES CLOSED, RR EVEN AND NONLABORED, NO S/S OF DISTRESS, AROUSES EASILY TO VOICE. ASSISTED PT TO RESTROOM AND BACK TO BED, YELLOW URINE NOTED. DENIES ANY OTHER NEEDS AT THIS TIME. BED IN LOWEST POSITION, SR X2, CALL LIGHT WITHIN REACH. WILL CONTINUE TO MONITOR.
[2019-10-31 20:00] VITALS: BP 170/68
[2019-10-31 23:38] VITALS: BP 134/66; BMI 27.7
[2019-11-01] VITALS: BP 186/78
[2019-11-01 04:00] VITALS: BP 185/79
[2019-11-01 05:11] LABS: BASOPHILS 0.2 % (0-2); EOSINOPHILS 1.4 % (0-7); HEMATOCRIT 36.9 % (36.0-48.0); HEMOGLOBIN 11.6 g/dL (12-16); IMMATURE GRANULOCYTES 0.2 % (0-5); LYMPHOCYTES 20.6 % (15-50); MCH 29.7 pg (26.0-34.0); MCHC 31.4 g/dL (31.0-37.0); MCV 94.4 fL (80.0-100.0); MEAN PLATELET VOLUME 9.1 fL (7.4-10.4); MONOCYTES 11.1 % (2-11); NEUTROPHILS 66.5 % (40-80); PLATELET COUNT 211 10x3/uL (130-400); RBC 3.91 10x6/uL (4.00-5.40); RDW 13.4 % (11.5-14.5); WBC 6.3 10x3/uL (4.8-10.8)
[2019-11-01 05:32] LABS: ANION GAP 15.1 mmol/L (8-16); CALCIUM 8.6 mg/dL (8.5-10.1); CARBON DIOXIDE 21.9 mmol/L (21.0-32.0); CREATININE - SERUM 1.4 mg/dL (0.6-1.3)
--- NOTE | 2019-11-01 07:00 | NUR ---
RECEIVED REPORT. ASSUMED CARE OF PATIENT. PATIENT RESTIN IN BED WITH HOB ELEVATED, EYES OPEN. RESP EVEN AND UNLABORED. IV FLUIDS INFUSING ORDERED. NO DISTRESS.
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
[2019-11-01 07:56] VITALS: BP 162/69
[2019-11-01 09:12] VITALS: Ht 162.6 cm; Wt 73.1 kg
--- NOTE | 2019-11-01 10:00 | NUR ---
PT AT BEDSIDE TO EVALUATE PATIENT. PATIENT EVALUATED TO BE STAND BY ASSIST AND TO LET PATIENT USE HER PERSONAL CANE. PATIENT RESTING IN BED AT THIS TIME. NO DISTRESS.
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
[2019-11-01 11:19] VITALS: BP 134/71
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
[2019-11-01 15:15] VITALS: BP 164/59
--- NOTE | 2019-11-01 16:38 | NUR ---
PATIENT WILL NOT KEEP SCDs ON AND CONSTANTLY UP MOVING ABOUT THE ROOM.
[2019-11-01 19:55] VITALS: BP 193/74
--- NOTE | 2019-11-01 20:26 | NUR ---
INITIAL ROUNDS COMPLETED AT 1910 HRS. HUSBAD AT BEDSIDE. NO DISTRESS NOTED. ASSISTED TO BR AT 1920 HRS. GAIT SLOW AND STEADY WITH USE OF CANE. PT VOIDED 20CC OF YELLOW URINE. ASSESSMENT COMPLETED AT 194 HRS. BP ELEVATED. PT ALERT AND ORIENTED TO PERSON, PLACE AND TIME AND SITUATION BUT REPEATS SAME QUESTION AGAIN. IV UPPER R ARM MIDLINE WITH NS [id number]. IV PATENT. LUNGS DIMINISHED IN BASES BILAT. ABD SOFTE WITH ACTIVE BS NOTED. ABD DISTENDED. HAMMER TOE NOTED TO R FOOT. PT BLADDER SCAN t 1954 HRS WITH VISIDUAL OF 480CC NOTED. BP ELEVATED 193/74. DR ROSAS PAGED AT [address] ROSAS REPAGED AT 2019 HRS AND RETURNED CALL AT 2024 HRS. INFORMED OF PT, DIAGNOSIS, SELF CATHS AT HOME. VOIDING 25CC AT AT TIME AND A BLADDER SCAN RESIDUAL OF 480CC. ALSO INFORMED OF BP 193/74. NEW ORDERS RECEIVED AND NOTED.
--- NOTE | 2019-11-01 20:55 | NUR ---
16FR HIDALGO PLACED USING STERILE TECHNIQUE. PT TOLERATED ACTIVITY WELL. 450CC OF CLEAR URINE RETURNED.
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
--- NOTE | 2019-11-01 23:09 | NUR ---
PT RESTING WITH EYES CLOSED. RESP EVEN EVEN AND REGULAR. SR UP X3, CALL LIGHT WITHIN REACH AND BED ALARM ON.
--- NOTE | 2019-11-02 00:09 | NUR ---
PT CONFUSED, CRAWLING OUT OF BED. PT STATES SHE NEEDS TO URINATE. EXPLAINED TO PT THAT SHE HAS A CATHETER. PT DENIED HAVING A CATHETER. CATHETER SHOWN TO PT. PT INSISTS SHE NEEDS TO GO TO THE BR OR SHE WILL URINATE IN THE TRASHCAN. ASSISTED PT TO BR. GAIT SLOW AND UNSTEADY. ASSISTED PT BACK TO BED. PT STATED SHE URINATED IN TOILET. NO URINE NOTED IN TOILET. PT COVERED WITH BLANKETS. SR UP X3, CALL LIGHT WITHIN REACH AND BED AALRM ON.
[2019-11-02 00:21] VITALS: BP 123/68
--- NOTE | 2019-11-02 01:57 | NUR ---
PT RESTING WITH EYES CLOSED. RESP EVEN AND REGULAR. SR UP X3, CALL LIGHT WITHIN REACH AND BED ALARM ON.
--- NOTE | 2019-11-02 04:40 | NUR ---
PT ATTEMPTING TO CRAWL OUT OF BED. OREINTED TO PERSON AND SITUATION. PT STATES SHE DOESN'T KNOW WHERE SHE IS. REORIENTED TO PLACE, TIME AND SITUATION. SR UP X3, CALL LIGHT WITHIN REACH AND BED ALARM ON.
[2019-11-02 04:49] VITALS: BP 144/77
[2019-11-02 05:25] LABS: BASOPHILS 0.2 % (0-2); EOSINOPHILS 2.7 % (0-7); HEMATOCRIT 36.8 % (36.0-48.0); HEMOGLOBIN 11.5 g/dL (12-16); IMMATURE GRANULOCYTES 0.5 % (0-5); LYMPHOCYTES 19.3 % (15-50); MCH 29.9 pg (26.0-34.0); MCHC 31.3 g/dL (31.0-37.0); MCV 95.8 fL (80.0-100.0); MEAN PLATELET VOLUME 9.6 fL (7.4-10.4); MONOCYTES 11.5 % (2-11); NEUTROPHILS 65.8 % (40-80); PLATELET COUNT 170 10x3/uL (130-400); RBC 3.84 10x6/uL (4.00-5.40); RDW 13.6 % (11.5-14.5); WBC 6.4 10x3/uL (4.8-10.8)
[2019-11-02 05:33] LABS: CALCIUM 8.1 mg/dL (8.5-10.1); CARBON DIOXIDE 19.4 mmol/L (21.0-32.0); CREATININE - SERUM 1.2 mg/dL (0.6-1.3); POTASSIUM - SERUM 4.4 mmol/L (3.5-5.1)
--- NOTE | 2019-11-02 05:58 | NUR ---
VSS THIS AM. HIDALGO EMPTIED OF 1450CC OF CLEAR, YELLOW URINE. INTERMITTENT CONFUSION NOTED. NEEDS MET; WILL CONTINUE TO MONITOR.
--- NOTE | 2019-11-02 07:00 | NUR ---
RECEIVED REPORT. ASSUMED CARE OF PATIENT. PATIENT RESTING IN BED WITH EYES CLOSED. RESP EVEN AND UNLABORED. F/C PATENT, CLEAR YELLOW URINE TO DRAINAGE BAG. NO DISTRESS. BED ALARM PATENT. SR UP FOR SAFETY.
--- NOTE | 2019-11-02 07:15 | NUR ---
PATIENT BED ALARMING AND PATIENT CLIMBING OUT OF BED, HIDALGO CATHETER TUBING STRETCHED TIGHTLY BEHIND HER. PATIENT STATING SHE IS GOING TO GO WALKING DOWN THE HALLWAY. EXPLAINED TO PATIENT THAT IT IS STILL EARLY AND THERE IS NOTHING GOING ON IN THE HALLWAY BUT THIS CREDIT RISK ANALYTICS MANAGER CAN ASSIST HER TO GO FOR A WALK SOON. ASSISTED PATIENT BACK INTO BED. BED ALARM PATENT.
[2019-11-02 07:53] VITALS: BP 198/79
--- NOTE | 2019-11-02 09:17 | NUR ---
PEEWEEENEX PROVIDED. PATIENT AT BEDSIDE. NO DISTRESS.
[2019-11-02 11:28] VITALS: BP 150/63
--- NOTE | 2019-11-02 12:10 | NUR ---
PATIENTS OUT TO THE NURSES STATION SOON CALL LIGHT PUSHED STATING PATIENT NEEDS TO GO TO THE BATHROOM. PATIENT AND PATIENTS SPOUSE ARE NOT GIVING NURSING TIME TO GET TO THE ROOM TO ANSWER THE CALL LIGHT BEFORE COMING TO THE DESK OR SEEING US IN OTHER PATIENT ROOMS AND INTERRUPTING CARE WITH OTHER PATIENTS.
--- NOTE | 2019-11-02 13:43 | NUR ---
PULLED PATIENT UP IN BED AND MEDICATED FOR CONSITPATION AT THIS TIME.
--- NOTE | 2019-11-02 13:50 | NUR ---
OPERATIONS RESEARCH SCIENTIST ROMULO MAKING ROUNDS ON PATIENT AT THIS TIME AT BEDSIDE. NO DISTRESS.
--- NOTE | 2019-11-02 15:24 | NUR ---
ASSISTED PATIENT OOB TO RESTROOM FOR A BOWEL MOVEMENT. PATIENT HAS HEMORRHOIDS, SPECKLES OF BLOOD ON BED BAD. PATIENT STATES SHE IS SUPPOSED TO SEE A SURGEON TO HAVE THESE CORRECTED IN THE NEAR FUTURE, NEXT WEEK?
[2019-11-02 15:32] VITALS: BP 153/58
[2019-11-02 20:30] VITALS: BP 172/64
--- NOTE | 2019-11-02 22:50 | NUR ---
INITIAL ROUNDS COMPLETED AT 1910 HRS. PT RESTING WITH EYES CLOSED. RESP EVEN AND REGULAR. ASSESSMENT COMPLETED AT 1935 HRS. VSS. PT ALERT AND ORIENTED TO PERSON, PLACE , SITUATION AND WHO THE PRESIDENT IS. REOREINTED TO TIME PT THOUGHT IT WAS AM. MIDLINE TO R UPPER ARM WITH NS AT 75CC/HR. IV PATENT. LUNGS DIMINISHED IN BASES BILAT. DRESSING TO R ELBOW CLEAN, DRY AND INTACT. FIGUEREDO. HIDALGO DRAINING YELLOW URINE. PM MEDS GIVEN. PT CURRENTLY RESTING WTIH EYES CLOSED. ON L SIDE. RESP EVEN AND REGULAR. SR UP X3, CALL LIGHT WITHIN REACH, BED ALARM ON AND DOOR OPEN.
--- NOTE | 2019-11-03 00:26 | NUR ---
PT RESTING WITH EYES CLOSED. ON L SIDE. RESP EVEN AND REGULAR. SR UP X3, CALL LIGHT WITHIN REACH AND BED ALARM ON.
[2019-11-03 00:45] VITALS: BP 160/69
--- NOTE | 2019-11-03 02:06 | NUR ---
PT RESTING WITH EYES CLOSED. RESP EVEN AND REGULAR. SR UP X3, CALL LIGHT WITHIN REACH AND BED ALARM ON.
[2019-11-03 04:25] VITALS: BP 135/52
--- NOTE | 2019-11-03 04:27 | NUR ---
PTAKRISTIEKE; DENIES ANY DISCOMFORT. STATED SHE RESTED WELL DURING NIGHT. SR UP X3, CALL LIGHT WITHIN REACH AND BED ALARM ON.
[2019-11-03 05:07] LABS: BASOPHILS 0.2 % (0-2); EOSINOPHILS 1.9 % (0-7); HEMATOCRIT 35.1 % (36.0-48.0); HEMOGLOBIN 11.1 g/dL (12-16); IMMATURE GRANULOCYTES 0.5 % (0-5); LYMPHOCYTES 24.2 % (15-50); MCHC 31.6 g/dL (31.0-37.0); MCV 94.9 fL (80.0-100.0); MEAN PLATELET VOLUME 9.5 fL (7.4-10.4); MONOCYTES 10.2 % (2-11); PLATELET COUNT 182 10x3/uL (130-400); RDW 13.6 % (11.5-14.5); WBC 5.9 10x3/uL (4.8-10.8)
--- NOTE | 2019-11-03 05:08 | NUR ---
PT ATTEMPTING TO CRAWL OUT OF BED. STATES SHE NEEDS TO GET UP BUT DOESN'T KNOW WHY. THEN STATES SHE NEEDS TO URINEATE. INFORMED SHE HAS A HIDALGO. PT THEN STATES SHE KNEW TAHT BUT SHE WAS GOING TO URINATE IN THE TOILET ANYWAY. PT UP TO BR WITH ASSIST X2. GAIT UNSTEADY. PT THEN STATED WE NEEDED TO MOVE THAT THING BEFORE SHE COULD USE THE BR. WHEN ASKED WHAT THING SHE POINTED TO THE DRAIN IN THE SHOWER. INFORMED PT THE DRAIN COULD NOT BE MOVED IT WAS A FIXTURE IN THE FLOOR. ASSISTED BACK TO BED AFTER FLATUS NOTED. PT WAS HOLDING C JUVENCIO SOCIAL MEDIA MARKETING MANAGER WRIST WHEN SHE ACCUSED HIM OF DIGGING HIS NAILS INTO HER SKIN. PT SHOWN THAT C JUVENCIO SOCIAL MEDIA MARKETING MANAGER NAILS WERE NOT TOUCHING PT. ASSISTED BACK TO BED. SR UP X3, CALL LIGHT WITHIN REACH AND BED ALARM ON.
[2019-11-03 05:14] LABS: ANION GAP 13.2 mmol/L (8-16); CALCIUM 8.1 mg/dL (8.5-10.1); CARBON DIOXIDE 22.9 mmol/L (21.0-32.0); CREATININE - SERUM 1.3 mg/dL (0.6-1.3)
[2019-11-03 05:25] LABS: POTASSIUM - SERUM 5.1 mmol/L (3.5-5.1)
[2019-11-03 08:00] VITALS: BP 147/63
--- NOTE | 2019-11-03 08:22 | NUR ---
AM MEDS GIVEN AT THIS TIME. PT A/O X2, RESP EVEN AND NONLABORED ON 2L. PROVIDED DRESSING CHANGE TO LT CHEST, RT FOOT AND LT STUMP. SET PT UP FOR BREAKFAST. PT DENIES ANY NEEDS AT THIS TIME. CALL LIGHT IN REACH, NAD NOTED, WILL CONTINUE TO MONITOR.
--- NOTE | 2019-11-03 12:21 | NUR ---
HELPED PT UP TO CHAIR, TO EAT LUNCH. PT DENIES ANY NEEDS AT THIS TIME. CALL LIGHT IN REACH, FAMILY AT BEDSIDE. NAD NOTED.
[2019-11-03 14:55] VITALS: BP 131/51
--- NOTE | 2019-11-03 16:44 | MORECARE ---
CASE MANAGEMENT DISCHARGE SUMMARY PATIENT: RADHA KNIGHT KAZ UNIT: [id number] ADM DATE: 10/31/19 AGE: 79 : 38 SEX: F ROOM/BED: D.[facility] AUTHOR: KHANH BURGESS PHYSICIAN: REFERRING PHYSICIAN: SYDNIE BUCKNER MD DATE OF SERVICE: 11/03/19 Discharge Plan Patient Name: RADHA KNIGHT Facility: [facility]:[place] : 1940 Planned Disposition: Inpatient Rehab Anticipated Discharge Date: 11/04/19 Discharge Date: Expected LOS: 4 Initial Reviewer: [id number] Initial Review Date: 10/31/2019 Generated: 11/03/19 5:43 pm DCPIA - Discharge Planning Initial Assessment Updated by [id number]: Sharad Greene on 11/03/19 4:40 pm * Is the patient Alert and Oriented? Yes * How many steps to enter\exit or inside your home? NONE * PCP DR. BUCKNER * Pharmacy [facility] [place] * Preadmission Environment Home with Family * ADLs Partial Dependent * Partial ADLs (Assistance needed) Ambulation * Equipment Cane Elevated [place] Seat Grab Bars Rolling Walker Shower Chair * Other Equipment ROLLATOR WALKER NO MEDICAL EQUIPMENT PROVIDER PREFERENCE * List name and contact numbers for known caregivers / representatives who currently or will assist patient after discharge: VINNIE KNIGHT, SPOUSE, * Verbal permission to speak to the caregivers and representatives has been obtained from the patient. N/A * Community resources currently utilized None * Please name any agencies selected above. NONE * Additional services required to return to the preadmission environment? No * Can the patient safely return to the preadmission environment? Yes * Has this patient been hospitalized within the prior 30 days at any hospital? No External Providers External Provider: [facility] Next Contact Date: 11/03/2019 Service Request Date: Service Type: Resolution: Reviewer: Comments: Patient Name: RADHA KNIGHT Page 12940 at 1644 All edits/amendments must be made on the electronic document DICTATION DATE: 11/03/19 1643 INTERACTIVE PRODUCER: ANEL 11/03/19 1643 RPT#: [id number] DC DATE: STATUS: ADM IN [facility] [address] [place] [address] END OF REPORT
--- NOTE | 2019-11-03 16:50 | MORECARE ---
CASE MANAGEMENT DISCHARGE SUMMARY PATIENT: RADHA KNIGHT KAZ UNIT: [id number] ADM DATE: 10/31/19 AGE: 79 : 38 SEX: F ROOM/BED: D.7665 AUTHOR: ADITYA,DOC PHYSICIAN: REFERRING PHYSICIAN: SYDNIE BUCKNER MD DATE OF SERVICE: 11/03/19 Discharge Plan Patient Name: RADHA KNIGHT Facility: [facility]:[place] : 1940 Planned Disposition: Inpatient Rehab Anticipated Discharge Date: 11/04/19 Discharge Date: Expected LOS: 4 Initial Reviewer: [id number] Initial Review Date: 10/31/2019 Generated: 11/03/19 5:50 pm Comments DCP- Discharge Planning Updated by [id number]: Sharad Greene on 11/03/19 3:[address] Patient Name: RADHA KNIGHT Admission Status: ER Accout number: [id number] Admission Date: 10-31-2019 : 1940 Admission Diagnosis: Attending: SYDNIE BUCKNER Current LOS: 3 Anticipated DC Date: 11-04-2019 Planned Disposition: Inpatient Rehab Primary Insurance: MEDICARE A & B PLANNED EXTERNAL PROVIDER: [facility] INPATIENT REHAB Discharge Planning Comments: CM RECEIVED ORDER FOR INPATIENT REHAB PRESCREENING. CM MET WITH PT IN ROOM, DISCUSSED REHAB OPTIONS, LOCATIONS AND PROVIDERS WELL DISCHARGE PLANNING AND NEEDS. PT REPORTS LIVING AT HOME INDEPENDENTLY WITH HER SPOUSE. PT HAS BEEN HAVING HELP FROM HER SPOUSE FOR WALKING RECENTLY DUE TO WEAKNESS AND BALANCE. PT HAS ROLLATOR WALKER, CANE, ELEVATED TOILET SEAT, GRAB BARS, ROLLING WALKER AND SHOWER CHAIR. PT HAS NO MEDICAL EQUIPMENT PROVIDER PREFERENCE. PT HAS NO OUTSIDE SERVICES ASSISTING IN THE HOME. CM DISCUSSED AVAILABILITY OF HOME HEALTH, REHAB SERVICES AND MEDICAL EQUIPMENT. PT KNOWS SHE NEEDS REHAB AND DISCUSSED GOING TO [facility] WITH DR. BUCKNER. PT IN AGREEMENT WITH REHAB AT [facility]. CHOICE SIGNED. IMPORTANT MESSAGE FROM MEDICARE PROVIDED AND EXPLAINED. CM CALLED [facility] INPATIENT REHAB, SPOKE TO OSCAR AT [phone], PROVIDED REFERRAL INFORMATION. CM FAXED REFERRAL TO [facility] AT [phone]. CM WAITING ADMISSION DETERMINATION FROM [facility] INPATIENT REHAB. Green Building Materials Designer: Sharad Greene DCPIA - Discharge Planning Initial Assessment Updated by [id number]: Sharad Greene on 11/03/19 4:40 pm * Is the patient Alert and Oriented? Yes * How many steps to enter\exit or inside your home? NONE * PCP DR. BUCKNER * Pharmacy [facility] * Preadmission Environment Home with Family * ADLs Partial Dependent * Partial ADLs (Assistance needed) Ambulation * Equipment Cane Elevated [place] Seat Grab Bars Rolling Walker Shower Chair * Other Equipment ROLLATOR WALKER NO MEDICAL EQUIPMENT PROVIDER PREFERENCE * List name and contact numbers for known caregivers / representatives who currently or will assist patient after discharge: VINNIE KNIGHT, SPOUSE, * Verbal permission to speak to the caregivers and representatives has been obtained from the patient. N/A * Community resources currently utilized None * Please name any agencies selected above. NONE * Additional services required to return to the preadmission environment? No * Can the patient safely return to the preadmission environment? Yes * Has this patient been hospitalized within the prior 30 days at any hospital? No Coverage Notice Reviewer: [id number] - Sharad Greene Notice Issued Date-Time: 11/03/2019 14:45 Notice Type: IM Discharge Notice Notice Delivered To: Patient Relationship to Patient: Barrel Waterer Name: Delivery Method: HAND - Hand Delivered Hodan Days: Prior Verbal Notification: Recipient Understood Notice: Yes Recipient Signature: Yes Med Rec Note Co-signed by Attending: Coverage Notice Comment: Last DP export: 11/03/19 3:43 pm Patient Name: RADHA KNIGHT Page [phone] at 1650 All edits/amendments must be made on the electronic document DICTATION DATE: 11/03/19 1650 CLAMP TRUCK DRIVER: ANEL 11/03/19 165 RPT#: [id number] DC DATE: STATUS: ADM IN [facility] [address] [place] [address] END OF REPORT
[2019-11-03 17:42] VITALS: BP 161/59
--- NOTE | 2019-11-03 19:56 | NUR ---
REPORT RECIEVED AND ROUNDING COMPLETE. PATIENT LAYING IN LOW JULIAN POSTITON. PATIENT ASKED ABOUT WHY SHE HAS A HIDALGO BUT STILL HAS IN FEELING OF BEING FULL AND HAVING THE FEELING OF HAVING TO URINATE. WE DISCUSSED THIS IN LENGTH. PATIENT THEN REQUESTED A WARM BLANKET. PATIENT RECIEVED A WARM BLANKET. PATIENT'S IS AT BEDSIDE, PATIENT STATES SHE HAS NO OTHER NEEDS AT THIS TIME, CALL LIGHT WITHIN REACH AND BED IN LOWEST LOCKED POSITION. PATIENT SHOWS NO S/SX OF DISTRESS AT THIS TIME. PATIENT HAS A RIGHT UPPER ARM MIDLINE THAT IS PATINET AND RUNNING FLUIDS. PATIENT'S MIDLINE SHOWS NO S/SX OF INFILTRATION OR INFECTION.
[2019-11-03 20:30] VITALS: BP 158/64
--- NOTE | 2019-11-03 22:24 | NUR ---
PAGED AND THEN TALKED WITH DR. KELLEY ABOUT PATIENT MIDLINE BEING OUT AND NOT WANTED TO BE STUCK AGAIN. ALSO INFORMED HIM OF PATIENT HAVING BLADDER PAINS. BLADDER SCAN DONE AND NO URINE NOTED IN BLADDER. DR. KELLEY STATED TO LET DR. BUCKNER KNOW IN THE MORNING. NO OTHER NEW ORDERS.
--- NOTE | 2019-11-03 23:39 | NUR ---
I have reviewed this patient and I concur with the Shift Assessment completed by the Licensed Practical Nurse today this shift.
[2019-11-04 05:43] LABS: BASOPHILS 0.1 % (0-2); EOSINOPHILS 1.7 % (0-7); HEMOGLOBIN 11.8 g/dL (12-16); IMMATURE GRANULOCYTES 0.3 % (0-5); LYMPHOCYTES 19.6 % (15-50); MCH 30.3 pg (26.0-34.0); MCHC 31.9 g/dL (31.0-37.0); MCV 94.9 fL (80.0-100.0); MEAN PLATELET VOLUME 9.6 fL (7.4-10.4); MONOCYTES 9.6 % (2-11); NEUTROPHILS 68.7 % (40-80); PLATELET COUNT 179 10x3/uL (130-400); RDW 13.5 % (11.5-14.5)
[2019-11-04 06:05] LABS: ANION GAP 17.9 mmol/L (8-16); CALCIUM 8.5 mg/dL (8.5-10.1); CREATININE - SERUM 1.5 mg/dL (0.6-1.3); POTASSIUM - SERUM 4.9 mmol/L (3.5-5.1)
--- NOTE | 2019-11-04 07:00 | NUR ---
RECEIVED BEDSIDE SHIFT REPORT. ASSUMED CARE OF PATIENT. PATIENT RESTING WITH EYES CLOSED ON RIGHT LATERAL SIDE, PATIENT MUMBLING IN HER SLEEP. WHITE BOARD UPDATED. BED ALARM PATENT. CALL LIGHT WITHIN REACH. NO DISTRESS. AWAITING VASCUALR ACCESS TO ASSESS MIDLINE TO RIGHT UPPER ARM. PER DR. KELLEY, PASSED IN REPORT DO NOT STICK THE PATIENT FOR IV PLACEMENT UNTIL VASCULAR ACCESS SEES THE PATIENT.
[2019-11-04] MEDS ORDERED: ROCEPHIN 1 GM/D51 G1 IV (08:13)
--- NOTE | 2019-11-04 08:17 | NUR ---
ASSISTED PATIENT OOB TO RESTROOM. PATIENT BED ALARMING PATIENT CLIMBING OUT THE END OF THE BED. PATIENT HAVING DIFFICULTY AMBULATING TO RESTROOM THIS AM. ASSISTED PATIENT BACK TO BED. CALL LIGHT WITHIN REACH.
--- NOTE | 2019-11-04 09:35 | NUR ---
VASCULAR ACCESS NURSE HERE AND FLUSHED MIDELINE TO RIGHT UPPER ARM, NO LEAKING NOTED. DRESSING CHANGED TO MIDLINE.
--- NOTE | 2019-11-04 09:49 | NUR ---
ASSISTED PATIENT OOB TO RESTROOM AND BACK TO BED FOR BOWEL MOVEMENT. NO DISTRESS.
[2019-11-04 11:01] VITALS: BP 149/70
--- NOTE | 2019-11-04 13:02 | NUR ---
Nutrition Follow-up: Eating well. Slight nausea this AM. Diet: Cardiac, Boost TID PO intake: 50-100% Wt: 160.9# (11/02); 161# (10/31) Labs reviewed Meds reviewed -Continue current diet as tolerated. -Need new wt; noted daily wts ordered. -RD following.
--- NOTE | 2019-11-04 13:50 | MORECARE ---
CASE MANAGEMENT DISCHARGE SUMMARY PATIENT: RADHA KNIGHT KAZ UNIT: [id number] ADM DATE: 10/31/19 AGE: 79 : 38 SEX: F ROOM/BED: D.6307 AUTHOR: ADITYA,DOC PHYSICIAN: REFERRING PHYSICIAN: SYDNIE BUCKNER MD DATE OF SERVICE: 11/04/19 Discharge Plan Patient Name: RADHA KNIGHT Facility: [facility]:[place] : 1940 Planned Disposition: Inpatient Rehab Anticipated Discharge Date: 11/04/19 Discharge Date: Expected LOS: 4 Initial Reviewer: [id number] Initial Review Date: 10/31/2019 Generated: 11/04/19 2:50 pm Comments DCP- Discharge Planning Updated by [email or web address]: Sharad Greene on 11/03/19 3:[address] Patient Name: RADHA KNIGHT Admission Status: ER Accout number: [id number] Admission Date: 10-31-2019 : 1940 Admission Diagnosis: Attending: SYDNIE BUCKNER Current LOS: 3 Anticipated DC Date: 11-04-2019 Planned Disposition: Inpatient Rehab Primary Insurance: MEDICARE A & B PLANNED EXTERNAL PROVIDER: [facility] INPATIENT REHAB Discharge Planning Comments: CM RECEIVED ORDER FOR INPATIENT REHAB PRESCREENING. CM MET WITH PT IN ROOM, DISCUSSED REHAB OPTIONS, LOCATIONS AND PROVIDERS WELL DISCHARGE PLANNING AND NEEDS. PT REPORTS LIVING AT HOME INDEPENDENTLY WITH HER SPOUSE. PT HAS BEEN HAVING HELP FROM HER SPOUSE FOR WALKING RECENTLY DUE TO WEAKNESS AND BALANCE. PT HAS ROLLATOR WALKER, CANE, ELEVATED TOILET SEAT, GRAB BARS, ROLLING WALKER AND SHOWER CHAIR. PT HAS NO MEDICAL EQUIPMENT PROVIDER PREFERENCE. PT HAS NO OUTSIDE SERVICES ASSISTING IN THE HOME. CM DISCUSSED AVAILABILITY OF HOME HEALTH, REHAB SERVICES AND MEDICAL EQUIPMENT. PT KNOWS SHE NEEDS REHAB AND DISCUSSED GOING TO [facility] WITH DR. BUCKNER. PT IN AGREEMENT WITH REHAB AT [facility]. CHOICE SIGNED. IMPORTANT MESSAGE FROM MEDICARE PROVIDED AND EXPLAINED. CM CALLED [facility] INPATIENT REHAB, SPOKE TO OSCAR AT [phone], PROVIDED REFERRAL INFORMATION. CM FAXED REFERRAL TO [facility] AT [phone]. CM WAITING ADMISSION DETERMINATION FROM [facility] INPATIENT REHAB. Health Aide: Sharad Greene DCPIA - Discharge Planning Initial Assessment Updated by [id number]: Sharad Greene on 11/03/19 4:40 pm * Is the patient Alert and Oriented? Yes * How many steps to enter\exit or inside your home? NONE * PCP DR. BUCKNER * Pharmacy [facility], [place] * Preadmission Environment Home with Family * ADLs Partial Dependent * Partial ADLs (Assistance needed) Ambulation * Equipment Cane Elevated [place] Seat Grab Bars Rolling Walker Shower Chair * Other Equipment ROLLATOR WALKER NO MEDICAL EQUIPMENT PROVIDER PREFERENCE * List name and contact numbers for known caregivers / representatives who currently or will assist patient after discharge: VINNIE KNIGHT, SPOUSE, * Verbal permission to speak to the caregivers and representatives has been obtained from the patient. N/A * Community resources currently utilized None * Please name any agencies selected above. NONE * Additional services required to return to the preadmission environment? No * Can the patient safely return to the preadmission environment? Yes * Has this patient been hospitalized within the prior 30 days at any hospital? No Coverage Notice Reviewer: [email or web address] Greene Notice Issued Date-Time: 11/03/2019 14:45 Notice Type: IM Discharge Notice Notice Delivered To: Patient Relationship to Patient: Classics Professor Name: Delivery Method: HAND - Hand Delivered Hodan Days: Prior Verbal Notification: Recipient Understood Notice: Yes Recipient Signature: Yes Med Rec Note Co-signed by Attending: Coverage Notice Comment: Reviewer: JESSEE Greene Notice Issued Date-Time: 11/03/2019 14:45 Notice Type: Patient Choice Letter Notice Delivered To: Patient Relationship to Patient: Classics Professor Name: Delivery Method: HAND - Hand Delivered Hodan Days: Prior Verbal Notification: Recipient Understood Notice: Yes Recipient Signature: Yes Med Rec Note Co-signed by Attending: Coverage Notice Comment: [facility] DP export: 11/03/19 3:50 pm Patient Name: RADHA KNIGHT Page [phone] at 1350 All edits/amendments must be made on the electronic document DICTATION DATE: 11/04/19 1350 BACTERIOLOGY TEACHER: ANEL 11/04/19 1350 RPT#: [id number] DC DATE: STATUS: ADM IN [facility] [address] [place] [address] END OF REPORT
--- NOTE | 2019-11-04 13:58 | MORECARE ---
CASE MANAGEMENT DISCHARGE SUMMARY PATIENT: RADHA KNIGHT KAZ UNIT: [id number] ADM DATE: 10/31/19 AGE: 79 : 38 SEX: F ROOM/BED: D.8878 AUTHOR: ADITYA,DOC PHYSICIAN: REFERRING PHYSICIAN: SYDNIE BUCKNER MD DATE OF SERVICE: 11/04/19 Discharge Plan Patient Name: RADHA KNIGHT Facility: [facility]:[place] : 1940 Planned Disposition: Inpatient Rehab Anticipated Discharge Date: 11/04/19 Discharge Date: Expected LOS: 4 Initial Reviewer: [email or web address] Initial Review Date: 10/31/2019 Generated: 11/04/19 2:58 pm Comments DCP- Discharge Planning Updated by [id number]: Sharad Greene on 11/04/19 12:[address] Patient Name: RADHA KNIGHT Encounter No: [id number] : 1940 Primary Insurance: MEDICARE A & B Anticipated DC Date: 11-04-2019 Planned Disposition: Inpatient Rehab External Planned Provider: [facility] INPATIENT REHAB Discharge Planning Comments: CM RECEIVEDCALL FROM [facility] AT [phone], THEY WILL ACCEPT PT TODAY FOR REHAB. PT NOTIFIED AND IN AGREEMENT WITH DISCHARGE TODAY. CM NOTIFIED DR. BUCKNER AND CREDIT RISK REVIEW OFFICER NURSE. CM FAXED TODAY'S MAR AND DISCHARGE INFORMATION TO [facility] AT [phone]. CM WAITING NURSE REPORT NUMBER AND TRANSPORT ARRANGEMENTS FROM [facility] INPATIENT REHAB. Drill Bit Sharpener: Sharad Greene DCP- Discharge Planning Updated by [id number]: Sharad Greene on 11/03/19 3:[address] Patient Name: RADHA KNIGHT Admission Status: ER Accout number: [id number] Admission Date: 10-31-2019 : 1940 Admission Diagnosis: Attending: SYDNIE BUCKNER Current LOS: 3 Anticipated DC Date: 11-04-2019 Planned Disposition: Inpatient Rehab Primary Insurance: MEDICARE A & B PLANNED EXTERNAL PROVIDER: [facility] INPATIENT REHAB Discharge Planning Comments: CM RECEIVED ORDER FOR INPATIENT REHAB PRESCREENING. CM MET WITH PT IN ROOM, DISCUSSED REHAB OPTIONS, LOCATIONS AND PROVIDERS WELL DISCHARGE PLANNING AND NEEDS. PT REPORTS LIVING AT HOME INDEPENDENTLY WITH HER SPOUSE. PT HAS BEEN HAVING HELP FROM HER SPOUSE FOR WALKING RECENTLY DUE TO WEAKNESS AND BALANCE. PT HAS ROLLATOR WALKER, CANE, ELEVATED TOILET SEAT, GRAB BARS, ROLLING WALKER AND SHOWER CHAIR. PT HAS NO MEDICAL EQUIPMENT PROVIDER PREFERENCE. PT HAS NO OUTSIDE SERVICES ASSISTING IN THE HOME. CM DISCUSSED AVAILABILITY OF HOME HEALTH, REHAB SERVICES AND MEDICAL EQUIPMENT. PT KNOWS SHE NEEDS REHAB AND DISCUSSED GOING TO [facility] WITH DR. BUCKNER. PT IN AGREEMENT WITH REHAB AT [facility]. CHOICE SIGNED. IMPORTANT MESSAGE FROM MEDICARE PROVIDED AND EXPLAINED. CM CALLED [facility] INPATIENT RE[facility], SPOKE TO OSCAR AT [phone], PROVIDED REFERRAL INFORMATION. CM FAXED REFERRAL TO [facility] AT [phone]. CM WAITING ADMISSION DETERMINATION FROM [facility] INPATIENT REHAB. Drill Bit Sharpener: Sharad Greene DCPIA - Discharge Planning Initial Assessment Updated by [id number]: Sharad Greene on 11/03/19 4:40 pm * Is the patient Alert and Oriented? Yes * How many steps to enter\exit or inside your home? NONE * PCP DR. BUCKNER * Pharmacy [facility] [place] * Preadmission Environment Home with Family * ADLs Partial Dependent * Partial ADLs (Assistance needed) Ambulation * Equipment Cane Elevated [place] Seat Grab Bars Rolling Walker Shower Chair * Other Equipment ROLLATOR WALKER NO MEDICAL EQUIPMENT PROVIDER PREFERENCE * List name and contact numbers for known caregivers / representatives who currently or will assist patient after discharge: VINNIE KNIGHT, SPOUSE, * Verbal permission to speak to the caregivers and representatives has been obtained from the patient. N/A * Community resources currently utilized None * Please name any agencies selected above. NONE * Additional services required to return to the preadmission environment? No * Can the patient safely return to the preadmission environment? Yes * Has this patient been hospitalized within the prior 30 days at any hospital? No Coverage Notice Reviewer: [id number] - Sharad Greene Notice Issued Date-Time: 11/03/2019 14:45 Notice Type: IM Discharge Notice Notice Delivered To: Patient Relationship to Patient: Babbitt Spinner Name: Delivery Method: HAND - Hand Delivered Hodan Days: Prior Verbal Notification: Recipient Understood Notice: Yes Recipient Signature: Yes Med Rec Note Co-signed by Attending: Coverage Notice Comment: Reviewer: [id number] - Sharad Greene Notice Issued Date-Time: 11/03/2019 14:45 Notice Type: Patient Choice Letter Notice Delivered To: Patient Relationship to Patient: Babbitt Spinner Name: Delivery Method: HAND - Hand Delivered Hodan Days: Prior Verbal Notification: Recipient Understood Notice: Yes Recipient Signature: Yes Med Rec Note Co-signed by Attending: Coverage Notice Comment: [place] Man DP export: 11/04/19 12:50 pm Patient Name: RADHA KNIGHT Page [phone] at 1358 All edits/amendments must be made on the electronic document DICTATION DATE: 11/04/19 1358 EMPLOYMENT AND CLAIMS AIDE: ANEL 11/04/19 1358 RPT#: [id number] DC DATE: STATUS: ADM IN [facility] [address] [place] [address] END OF REPORT
--- NOTE | 2019-11-04 15:53 | MORECARE ---
CASE MANAGEMENT DISCHARGE SUMMARY PATIENT: RADHA KNIGHT KAZ UNIT: [id number] ADM DATE: 10/31/19 AGE: 79 : 38 SEX: F ROOM/BED: D.0721 AUTHOR: ADITYA,DOC PHYSICIAN: REFERRING PHYSICIAN: SYDNIE BUCKNER MD DATE OF SERVICE: 11/04/19 Discharge Plan Patient Name: RADHA KNIGHT Facility: [facility]:[place] : 1940 Planned Disposition: Inpatient Rehab Anticipated Discharge Date: 11/04/19 Discharge Date: Expected LOS: 4 Initial Reviewer: [email or web address] Initial Review Date: 10/31/2019 Generated: 11/04/19 4:52 pm Comments DCP- Discharge Planning Updated by [id number]: Sharad Greene on 11/04/19 2:[address] Patient Name: RADHA KNIGHT Encounter No: [id number] : 1940 Primary Insurance: MEDICARE A & B Anticipated DC Date: 11-04-2019 Planned Disposition: Inpatient Rehab External Planned Provider: [facility] Discharge Planning Comments: CM RECEIVEDCALL FROM [facility] AT [phone], THEY WILL ACCEPT PT TODAY FOR REHAB. PT NOTIFIED AND IN AGREEMENT WITH DISCHARGE TODAY. CM NOTIFIED DR. BUCKNER AND HAND SILVERING SUPERVISOR NURSE. CM FAXED TODAY'S MAR AND DISCHARGE INFORMATION TO [facility] AT [phone]. CM WAITING NURSE REPORT NUMBER AND TRANSPORT ARRANGEMENTS FROM [facility]. Darklight Inspector: Sharad Greene Appended by Sharad Greene on 11/04/2019 15:51 PHOTO EDITOR: CM RECEIVED CALL FROM [facility], THEY WILL COMBER OPERATOR PT AT ABOUT 1700 HOURS, ROOM 304, NUMBER FOR NURSE REPORT IS [phone]. ROSANNE PORTER DCP- Discharge Planning Updated by [id number]: Sharad Greene on 11/03/19 3:[address] Patient Name: RADHA KNIGHT Admission Status: ER Accout number: [id number] Admission Date: 10-31-2019 : 1940 Admission Diagnosis: Attending: SYDNIE BUCKNER Current LOS: 3 Anticipated DC Date: 11-04-2019 Planned Disposition: Inpatient Rehab Primary Insurance: MEDICARE A & B PLANNED EXTERNAL PROVIDER: [facility] Discharge Planning Comments: CM RECEIVED ORDER FOR INPATIENT REHAB PRESCREENING. CM MET WITH PT IN ROOM, DISCUSSED REHAB OPTIONS, LOCATIONS AND PROVIDERS WELL DISCHARGE PLANNING AND NEEDS. PT REPORTS LIVING AT HOME INDEPENDENTLY WITH HER SPOUSE. PT HAS BEEN HAVING HELP FROM HER SPOUSE FOR WALKING RECENTLY DUE TO WEAKNESS AND BALANCE. PT HAS ROLLATOR WALKER, CANE, ELEVATED TOILET SEAT, GRAB BARS, ROLLING WALKER AND SHOWER CHAIR. PT HAS NO MEDICAL EQUIPMENT PROVIDER PREFERENCE. PT HAS NO OUTSIDE SERVICES ASSISTING IN THE HOME. CM DISCUSSED AVAILABILITY OF HOME HEALTH, REHAB SERVICES AND MEDICAL EQUIPMENT. PT KNOWS SHE NEEDS REHAB AND DISCUSSED GOING TO [facility] WITH DR. BUCKNER. PT IN AGREEMENT WITH REHAB AT [facility]. CHOICE SIGNED. IMPORTANT MESSAGE FROM MEDICARE PROVIDED AND EXPLAINED. CM CALLED [facility], SPOKE TO [facility] AT [phone], PROVIDED REFERRAL INFORMATION. CM FAXED REFERRAL TO [facility] AT [phone]. CM WAITING ADMISSION DETERMINATION FROM [facility]. Darklight Inspector: Sharad Greene DCPIA - Discharge Planning Initial Assessment Updated by [id number]: Sharad Greene on 11/03/19 4:40 pm * Is the patient Alert and Oriented? Yes * How many steps to enter\exit or inside your home? NONE * PCP DR. BUCKNER * Pharmacy [facility] * Preadmission Environment Home with Family * ADLs Partial Dependent * Partial ADLs (Assistance needed) Ambulation * Equipment Cane Elevated [place] Seat Grab Bars Rolling Walker Shower Chair * Other Equipment ROLLATOR WALKER NO MEDICAL EQUIPMENT PROVIDER PREFERENCE * List name and contact numbers for known caregivers / representatives who currently or will assist patient after discharge: VINNIE KNIGHT, SPOUSE, * Verbal permission to speak to the caregivers and representatives has been obtained from the patient. N/A * Community resources currently utilized None * Please name any agencies selected above. NONE * Additional services required to return to the preadmission environment? No * Can the patient safely return to the preadmission environment? Yes * Has this patient been hospitalized within the prior 30 days at any hospital? No Coverage Notice Reviewer: [email or web address] - Sharad Greene Notice Issued Date-Time: 11/03/2019 14:45 Notice Type: IM Discharge Notice Notice Delivered To: Patient Relationship to Patient: Folded Cloth Taper Name: Delivery Method: HAND - Hand Delivered Hod[place] Days: Prior Verbal Notification: Recipient Understood Notice: Yes Recipient Signature: Yes Med Rec Note Co-signed by Attending: Coverage Notice Comment: Reviewer: [id number] - Sharad Greene Notice Issued Date-Time: 11/03/2019 14:45 Notice Type: Patient Choice Letter Notice Delivered To: Patient Relationship to Patient: Folded Cloth Taper Name: Delivery Method: HAND - Hand Delivered Hodan Days: Prior Verbal Notification: Recipient Understood Notice: Yes Recipient Signature: Yes Med Rec Note Co-signed by Attending: Coverage Notice Comment: JACKSON Man DP export: 11/04/19 12:58 pm Patient Name: RADHA KNIGHT Page [phone] at 1553 All edits/amendments must be made on the electronic document DICTATION DATE: 11/04/191551 OR ASSISTANT: ANEL 11/04/191551 RPT#: [id number] DC DATE: STATUS: ADM IN [facility] [address] [place] [address] END OF REPORT
--- NOTE | 2019-11-04 16:02 | NUR ---
REPORT CALLED TO KAZ AT [phone].
--- NOTE | 2019-11-04 16:15 | NUR ---
DISCHARGE INSTRUCTIONS PROVIDED TO PATIENT AND SPOUSE. JAMES VERBALIZES HER UNDERSTANDING OF GOING TO [facility] FOR REHAB.
--- NOTE | 2019-11-04 17:03 | NUR ---
PATIENT BEING DRESSED TO LEAVE FOR [facility] AT THIS TIME. NO DISTRESS.
--- NOTE | 2019-11-04 17:29 | NUR ---
PATIENT DISCHARGED TO [facility] AT THIS TIME. PATIENT LEFT UNIT VIA WHEELCHAIR IN NO DISTRESS. PATIENT LEFT UNIT WITH ALL PERSONAL BELONGINGS. PATIENT HAD POSESSION OF HER CELL PHONE THAT WAS A FLIP PHONE. PATIENT WAS SENT WITH HER PERSONAL CANE AND ALL PERSONAL CLOTHING. NO DISTRESS UPON LEAVING UNIT IN WHEELCHAIR WITH SCHOLASTIC APTITUDE TEST GRADER FROM [facility] AT THIS TIME.
== END 2019-11-04 17:32 | DRG 698 ==
LOC: D.ER 11:45 → D.M2 16:14
PROVIDERS: Family Medicine; ADMIT Family Medicine; ATTEND Family Medicine
PROC: 05HB33Z Insertion of Infusion Device into Right Basilic Vein, Percutaneous Approach (ICD-10-PCS; principal; 2019-10-31)
PROC: B54MZZA Ultrasonography of Right Upper Extremity Veins, Guidance (ICD-10-PCS; 2019-10-31)
DX: T83.518A Infection and inflammatory reaction due to other urinary catheter, initial encounter (principal); G92 Toxic encephalopathy; N39.0 Urinary tract infection, site not specified; E86.0 Dehydration; R51 Headache; N28.9 Disorder of kidney and ureter, unspecified; B96.20 Unspecified Escherichia coli [E. coli] as the cause of diseases classified elsewhere; Z91.81 History of falling

== ENCOUNTER 2020-05-26 20:14 | Observation (INO) | payer MEDICARE, OTHER ==
[~2020-05-26] VITALS: Ht 162.6 cm; Wt 68.6 kg
--- NOTE | ~2020-05-26 | HEMODYNAMI ---
PATIENT:RADHA KNIGHT MEDICAL RECORD: [id number] : 36 LOCATION:[facility] D.[id number] ADMISSION DATE: 05/26/20 Generatedon:05/27/202016:04 Patient name: RADHA KNIGHT Patient #: [id number] SSN: : 1940 Date of study: 05/27/2020 Page: Of Hemodynamic Procedure Report Patient Data Patient Demographics Procedure consent was obtained First Name: RADHA Gender: Female Last Name: ANTONIA : 1940 [facility] Initial: KAZ Age: 80 year(s) Patient #: [id number] Race: Additional ID: [id number] Contact details [address]: [address] [place] [address] State: [place] City: [place] Zip code: [address] Past Medical History History of disease Date Diagnosis Comments CAD Allergies Allergen Reaction Date Comments Reported Penicillins 06/28/2015 Morphine 06/28/2015 Other allergy 06/28/2015 darvon, clindamyin, levaquin, ultram, ultralytic 2 Other allergy 05/27/2020 SULFA, PCN, DARVON,CLINDAMYCIN, LEVAQUIN, PROTEIN C, ULTRALYTIC2, ULTRAM, MORPHINE Admission Admission Data Admission Date: 05/26/2020 Admission Time: 20:51 Arrival Date: 05/26/2020 Arrival Time: 0:00 Room #: D.[id number] Height (in.): 63.78 BSA: 1.74 (m2) Height (cm.): 162 BMI: 26.29 (kg/m2) Weight (lbs.): 152.12 Weight (kg.): 69 Lab Results Lab Result Date: 05/27/2020 Lab Result Time: 0:00 Biochemistry Name Units Result Min Max BUN mg/dl 32 --(----)-* 7 18 Creatinine mg/dl 1.8 --(----)-* 0.6 1.3 eGFR ml/min 28 *-(----)-- 90 120 NONAFRICAN CBC Name Units Result Min Max Hematocrit % 37.1 *-(----)-- 42 54 Hemoglobin g/dl 11.9 *-(----)-- 13.5 17.5 Procedure Procedure Types Cath Procedure Diagnostic Procedure [facility] w/Coronaries Sedation Charges Moderate Sedation up to 15 minutes PCI Procedure Coronary Stent Coronary Stent Initial Hemochron ACT Test Procedure Description Procedure Date Procedure Date: 05/27/2020 Procedure Start Time: 15:41 Procedure End Time: 15:55 Procedure Staff Name Function Yasir Biggs MD Performing Physician Tresa Moncada RT Monitor Rosaline Wyatt RT Scrub Lexi Medina RN Nurse Procedure Data Cath Procedure Fluoroscopy Diagnostic fluoroscopy Total fluoroscopy Time: 2.7 time: 2.7 min min Diagnostic fluoroscopy Total fluoroscopy dose: 534 dose: 534 mGy mGy Contrast Material Contrast Material Type Amount (ml) Isovue 300 62 Entry Location Entry Primary Successful Side Size Upsize Upsize Entry Closure Succes sful Closure Location (Fr) 1 (Fr) 2 (Fr) Remarks Device Remarks Femoral Right 5 Fr 6 Fr Exoseal artery Short Estimated blood loss: 5 ml Diagnostic catheters Device Type Used For End Catheter Placement MULTIPACK JL 4.0 5Fr Left Coronary catheter Angiography MULTIPACK 3DRC 5Fr Right Coronary catheter Angiography MULTIPACK Pigtail 5 Fr LV Angiography catheter Procedure Complications No complications Procedure Medications Medication Administration Route Dosage Oxygen etCO2 Nasal cannula 2 l/min Lidocaine 2% added to field 20 Heparin Flush Bag added to field 2 bags (1000units/500ml NS) 0.9% NaCl I.V. 100 ml/hr Versed I.V. 1 mg Heparin Bolus I.V. 4000 units Integrilin (Bolus I.V. 6.2 ml 2mg/ml) Versed I.V. 1 mg Fentanyl I.V. 50 mcg Plavix P.O. 600 mg Hemodynamics Rest BSA: 1.74 (m2) HGB: 11.9 (g/dl) O2 Consumption: Estimated: 166.5 (ml/min) O2 Con sumption indexed: Estimated:95.69 (ml/min/m) Heart Rate: 86 (bpm) Snapshots Pre Cath Intra NCS Post Cath Vital Signs Time Heart Resp SPO2 etCO2 NIBP (mmHg) Rhythm Pain Sedation Rate (ipm) (%) (mmHg) Status Level (bpm) 15:36:01 86 16 97 0 154/77(130) NSR 0 (11) 10(A) , No pain 15:40:11 86 20 98 0 155/76(106) NSR 0 (11) 10(A) , No pain 15:44:21 83 24 100 0 150/71(112) NSR 0 (11) 10(A) , No pain 15:48:33 84 14 100 0 150/74(114) NSR 0 (11) 10(A) , No pain 15:53:22 83 16 100 0.7 161/81(143) NSR 0 (11) 10(A) , No pain Medications Time Medication Route Dose Verified Delivered Reason Notes Effectiveness by by 15:33:40 Oxygen etCO2 2 Yasir Elliott Per physician Nasal l/min [facility] RN cannula 15:42:30 Lidocaine 2% added 20ml Yasir Cooley for local to vial [facility] anesthetic field MD FROST 15:42:37 Heparin Flush added 2 Yasir Floresory used for Bag to bags [facility] procedure (1000units/500ml field MD FROST NS) 15:42:57 0.9% NaCl I.V. 100 Yasir Elliott Per physician ml/hr [facility] Med[facility] RN, MD 15:43:13 Versed I.V. 1 mg Yasir Elliott for sedation [facility] RN, MD 15:43:56 Fentanyl I.V. 50 Yasir Wheelerie for sedation mcg [facility] Med[facility] RN, MD 15:47:54 Heparin Bolus I.V. 4000 Yasir Elliott for verif ied units [facility] Med[facility] RN anticoagulation with dr MD lynch 15:51:30 Integrilin I.V. 6.2 Yasir Elliott for waste d (Bolus 2mg/ml) ml [facility] Med[facility] RN antiplatelet 3.8 ml MD therapy of vial 15:55:49 Versed I.V. 1 mg Yasir Elliott for sedation [facility] Med[facility] RN, MD 16:01:34 Plavix P.O. 600 Yasir Elliott for mg [facility] Med[facility] RN antiplatelet therapy Procedure Log Time Note 15:00:17 Informed consent obtained and on chart 15:00:36 Procedure Status Urgent Heart Cath (IP). 15:00:37 Time tracking: Regular hours (M-F 7:00 - 5:00) 15:00:39 Plan of Care:Hemodynamics will remain stable., Cardiac rhythm will remain stable., Comfort level will be maintained., Respiratory function will remain adequate., Patient/ family verbilizes understanding of procedure., Procedure tolerated without complication., Recovers from procedure without complications.. 15:00:41 Lexi Medina RN sent for patient. Start room use. 15:00:45 H&P Date Dictated: 05/27/2020 ER History on chart.. 15:13:13 Patient allergic to Other allergySULFA, PCN, DARVON,CLINDAMYCIN, LEVAQUIN, PROTEIN C, ULTRALYTIC2, ULTRAM, MORPHINE 15:13:38 Patient Weight : 152.12 lbs 15:13:42 Patient Height : 63.78 inches 15:13:47 Arrival Date: 05/26/2020 12:00:00 AM 15:17:10 Lab Result : eGFR NONAFRICAN 28 ml/min 15:17:10 Lab Result : Creatinine 1.8 mg/dl 15:17:10 Lab Result : BUN 32 mg/dl 15:17:10 Lab Result : Hemoglobin 11.9 g/dl 15:17:10 Lab Result : Hematocrit 37.1 % 15:21:58 Patient received from Med II to CCL 2 Alert and oriented. Tansferred to table in Supine position. 15:22:01 Warm blankets applied, and brett hugger turned on for patient comfort. 15:22:05 Correct patient and procedure confirmed by team. 15:33:40 Oxygen 2 l/min etCO2 Nasal cannula was administered by Lexi Meidna RN; Per physician; Verbal order read back and verified. 15:34:56 ECG and BP/O2 sat monitors applied to patient. 15:34:56 Vital chart was started 15:34:57 Baseline sample Acquired. 15:35:01 Rhythm: sinus rhythm 15:35:03 Full Disclosure recording started 15:35:05 Pre-procedure instructions explained to patient. 15:35:05 Pre-op teaching completed and patient verbalized understanding. 15:35:07 Family in patients room. 15:35:09 Patient NPO since Midnight. 15:35:11 Is the patient allergic to Iodine/contrast media? No. 15:35:12 Was the patient premedicated? Yes 15:35:13 Is patient on blood thinner?No 15:35:15 Patient diabetic? No. 15:35:18 Previous problem with sedation/anesthesia? No ? 15:35:20 Snore? Yes 15:35:21 Sleep apnea? No 15:35:22 Deviated septum? No 15:35:28 Opens mouth fully? Yes 15:35:28 Sticks out tongue? Yes 15:35:32 Airway obstruction? No ? 15:35:34 Dentures? No ? 15:35:39 Pre procedure: right dorsailis pedis pulse 2+ Normal; easily identifiable; not easily obliterated 15:35:41 Pre procedure: left dorsailis pedis pulse 2+ Normal; easily identifiable; not easily obliterated 15:35:42 Patient pain scale 0/10 ?. 15:36:01 IV left hand D/C'd due to infiltration. 15:36:06 Lab results completed and on chart. 15:40:13 IV started by Lexi Medina RN inLeft upper arm with a 24 gauge IV catheter with 0.9% NaCl at KVO. 15:40:20 Right groin area was prepped with chlora-prep and draped in sterile fashion 15:40:21 Alarms reviewed by R. N. 15:40:22 Sharps counted by scrub and verified by R.N. 15:40:22 Physician arrived 15:40:23 --------ALL STOP TIME OUT------ 15:40:23 Final Timeout: patient, procedure, and site verified with staff and physician. All members of the team are in agreement. 15:40:25 Right groin site verified by team. 15:40:29 Fire Safety Assessment: A--An alcohol-based skin anteseptic being used preoperatively., C--Open oxygen or nitrous oxide is being used., D--An ESU, laser, or fiber-optic light is being used. 15:40:32 Physical assessment completed. ASA score P 2 - A patient with mild systemic disease as per Yasir Biggs MD. 15:40:50 4) 15-29 Severley reduced kidney function. 15:41:12 Maximum allowable contrast dose (3.7 X eGFR X 0.75)77 ml. 15:41:16 Sedation plan: IV Moderate Sedation Medication:Versed, Fentanyl 15:41:23 Use device set Femoral Dx 15:41:24 ACIST Syringe (96211) opened to sterile field. 15:41:24 Bag Decanter (2001S) opened to sterile field. 15:41:24 Medline Cath Pack ([id number]) opened to sterile field. 15:41:26 ACIST Hand Control (01948) opened to sterile field. 15:41:26 ACIST Manifold (72521) opened to sterile field. 15:41:26 DIAGNOSTIC Multipack 5Fr catheter set (MR3169) opened to sterile field. 15:41:27 Tegaderm 4 x 4 (1626W) opened to sterile field. 15:41:28 SHEATH 5FR [place] (TBD037) opened to sterile field. 15:41:28 EMERALD Guide Wire (386-791) opened to sterile field. 15:41:32 Procedure started. 15:41:49 Local anesthetic to right femoral artery with Lidocaine 2% by Yasir Biggs MD.INITIAL ACCESS ONLY 15:42:06 A 5 Fr sheath was inserted into the Right Femoral artery 15:42:12 A MULTIPACK JL 4.0 5Fr catheter was advanced over the wire and used for Left Coronary Angiography. 15:42:30 Lidocaine 2% 20ml vial added to field was administered by Yasir Biggs MD; for local anesthetic; Verbal order read back and verified. 15:42:37 Heparin Flush Bag (1000units/500ml NS) 2 bags added to field was administered by Yasir Biggs MD; used for procedure; Verbal order read back and verified. 15:42:57 0.9% NaCl 100 ml/hr I.V. was administered by Lexi Medina RN; Per physician; Verbal order read back and verified. 15:43:01 LCA angiography performed. 15:43:03 Injector settings: Ml/sec: 3, Volume: 6, 15:43:13 Versed 1 mg I.V. was administered by Lexi Medina RN; for sedation; Verbal order read back and verified. 15:43:56 Fentanyl 50 mcg I.V. was administered by Lexi Medina RN; for sedation; Verbal order read back and verified. 15:44:06 Catheter removed. 15:44:11 A MULTIPACK 3DRC 5Fr catheter was advanced over the wire and used for Right Coronary Angiography. 15:45:03 RCA angiography performed. 15:45:07 Injector settings: Ml/sec: 3, Volume: 6, 15:45:21 Catheter removed. 15:45:26 A MULTIPACK Pigtail 5 Fr catheter was advanced over the wire and used for LV Angiography. 15:46:26 LV hemodynamics recorded. 15:46:28 LV gram done using SEN 15:46:33 Injector settings: Ml/sec: 5, Volume: 15, 15:46:51 EF : 55 % 15:46:53 Catheter removed. 15:47:22 Proceeding to intervention. 15:47:44 GUIDE 6FR HS I catheter (LA6HSI) opened to sterile field. 15:47:45 WHISPER 300cm guide wire ([id number]) opened to sterile field. 15:47:45 INFLATOR Merit BasixCompak (GH8006) opened to sterile field. 15:47:46 SHEATH 6FR [place] (OMV469) opened to sterile field. 15:47:54 Heparin Bolus 4000 units I.V. was administered by Lexi Medina RN; for anticoagulation; verified with dr lynch Verbal order read back and verified. 15:48:33 Sheath upsized to a 6 Fr Short. 15:48:35 ACC Pre-intervention KAL Flow is 3. 15:48:44 Pre PCI Site: [place] dRCA has 80% stenosis. 15:48:51 6 Fr HS 1 guide catheter was inserted over the wire 15:49:06 WHISPER wire advanced. 15:49:08 Wire advanced across lesion. 15:51:17 Place stent Inflation Number: 1 A INTEGRITY OTW 3.5 X 12 stent ([id number]) was prepped and advanced across the Dist RCA 80. The stent was deployed at 14 EZIO for 0:30 (min:sec) 0. 15:51:30 Integrilin (Bolus 2mg/ml) 6.2 ml I.V. was administered by Lexi Medina RN; for antiplatelet therapy; wasted 3.8 ml of vial Verbal order read back and verified. 15:52:04 Inflation number: 2 The stent balloon was then re-inflated across the Dist RCA 0 to 6 EZIO for 0:29 (min:sec) . 15:52:45 ACC Post-intervention KAL Flow is 3. 15:53:08 Stent catheter was removed intact over wire. 15:53:09 Wire removed. 15:53:09 Guide catheter removed. 15:53:19 Sheath removed intact; hemostasis achieved with Exoseal to the Right Femoral artery. 15:53:20 Procedure ended.(Physican Out) 15:54:06 Fluoroscopy time 02.70 minutes. 15:54:09 Flurop Dose total: 534 15:54:09 Fluoroscopy dose: 534 mGy 15:54:26 Dose Area Product 21308 mGy/cm. 15:54:30 Contrast amount:Isovue 300 62ml. 15:54:32 Maximum allowable dose exceeded? No. 15:54:33 Sharps counted by scrub and verified by R.N. 15:54:35 Insertion/operative site no bleeding no hematoma. 15:54:39 Post-op/insertion site Right Femoral artery dressed using a 4 x 4 and Tegaderm. 15:54:40 Post Procedure Pulses reassessed and unchanged 15:54:42 Post procedure rhythm: unchanged. 15:54:46 Estimated blood loss: 5 ml 15:54:47 Post procedure instruction explained to patient.Patient verbalizes understanding. 15:54:48 Patient needs reinforcement of post procedure teaching. 15:55:29 Procedure type changed to Cath procedure, Diagnostic procedure, LHC, [facility] w/Coronaries, Sedation Charges, Moderate Sedation up to 15 minutes, PCI procedure, Coronary Stent, Coronary Stent Initial, Hemochron ACT Test 15:55:30 Procedure and supply charges have been captured, reviewed, submitted and are correct. 15:55:34 Procedure Complication : No complications 15:55:37 Vital chart was stopped 15:55:38 [facility] Findings: MVD- PCI performed (see procedure note) 15:55:43 Operative report dictated upon procedure completion. 15:55:44 See physician's report for complete and final results. 15:55:48 Report given to Med II. 15:55:49 Versed 1 mg I.V. was administered by Lexi Medina RN; for sedation; Verbal order read back and verified. 15:55:50 Patient transfered to Med II with Stretcher. 15:55:53 Procedure ended. 15:55:53 Full Disclosure recording stopped 15:56:02 ACC-PCI Only Patient was given prescriptions, or instructed by Yasir Biggs MD to start/continue the following medications upon discharge: Plavix 15:56:03 End room use (Document Last) 16:01:01 EXOSEAL 6Fr (EX600) opened to sterile field. 16:01:34 Plavix 600 mg P.O. was administered by Lexi Medina RN; for antiplatelet therapy; Verbal order read back and verified. 16:02:24 ACT drawn and resulted at 286 seconds. (normal therapeutic range 180-240 seconds). Intervention Summary Intervention Notes Time ActionType Lesion and Equipment Action# Pressure Duration Attributes Used 15:51:17 Place stent Dist RCA INTEGRITY 1 14 00:30 OTW 3.5 X 12 stent ([id number]) 15:52:04 Reinflate Dist RCA INTEGRITY 2 6 00:29 stent OTW 3.5 X balloon 12 stent ([id number]) Device Usage Item Name Manufacture Quantity Catalog Hospital Part Current Minimal L ot# / Number Charge Number Stock Stock Serial# Code ACIST Acist 1 77216 637510 148303 263645 20 Syringe Medical (11602) Systems Inc Bag Microtek 1 2001S 345433 67143 753832 5 Decanter Medical Inc. () Medline Medline 1 [id number] 493989 58825 067881 5 Cath Pack ([id number]) ACIST Hand Acist 1 63449 278351 445964 196900 5 Control Medical (80714) Systems Inc ACIST Acist 1 75043 122214 841368 260924 5 Manifold Medical (00081) Systems Inc DIAGNOSTIC Cardinal 1 FT9114 786610 51918 566874 30 Multipack Health 5Fr catheter set (RJ3392) Tegaderm 4 3M 1 1626W 143421 022150 849843 5 x 4 (1626W) SHEATH 5FR Terumo 1 LNV510 852500 536482 178799 5 [place] (EBJ376) EMERALD Cardinal 1 502-455 212133 545873 871547 5 Guide Wire Health (502455) MULTIPACK Cardinal 1 265094 5 JL 4.0 5Fr Health catheter MULTIPACK Cardinal 1 090322 5 3DRC 5Fr Health catheter MULTIPACK Cardinal 1 035197 5 Pigtail 5 Health Fr catheter GUIDE 6FR Medtronic 1 LA6HSI 980598 47112 678534 1 HS I catheter (LA6HSI) WHISPER Lay 1 [id number] 188932 985208 980680 5 300cm guide Vascular wire (1354129EV) INFLATOR Merit 1 VK1762 254860 362255 729430 15 Merit Medical BasixCompak (FT0341) SHEATH 6FR Terumo 1 QYK580 653593 463737 258420 40 [place] (ISG146) INTEGRITY Medtronic 1 [id number] 885836 072873 414476 1 0 [id number] OTW 3.5 X 12 stent ([id number]) EXOSEAL 6Fr Cardinal 1 EX600 232098 326582 973386 10 (EX600) Health Signature Audit Mulga Stage Time Signature Unsigned Intra-Procedure 05/27/2020 Tresa Moncada 4:01:47 PM RT(R) Intra-Procedure 05/27/2020 Lexi Medina RN 4:02:15 PM Intra-Procedure 05/27/2020 Yasir Schulz 4:04:22 PM Thomas FROST Signatures Performing Physician : Signature : Yasir Biggs MD Date : Time : Monitor : Tresa Moncada RT Signature : Date : Time : Nurse : Lexi Medina RN Signature : Date : Time : [facility] [address] [place] [address]
[~2020-05-26 20:14] MED LIST changes: +ROCEPHIN 1 GM/D51 G1 IV
[2020-05-26 21:03] VITALS: BP 207/78
[2020-05-26 21:07] LABS: BASOPHILS 0.4 % (0-2); EOSINOPHILS 2.5 % (0-7); HEMATOCRIT 37.1 % (36.0-48.0); HEMOGLOBIN 11.9 g/dL (12-16); LYMPHOCYTES 35.2 % (15-50); MCH 30.6 pg (26.0-34.0); MCHC 32.1 g/dL (31.0-37.0); MCV 95.4 fL (80.0-100.0); MEAN PLATELET VOLUME 9.1 fL (7.4-10.4); MONOCYTES 11.8 % (2-11); NEUTROPHILS 50.1 % (40-80); PLATELET COUNT 206 10x3/uL (130-400); RBC 3.89 10x6/uL (4.00-5.40); RDW 13.3 % (11.5-14.5); WBC 5.2 10x3/uL (4.8-10.8)
[2020-05-26 21:17] LABS: APTT 24.3 SECONDS (22.8-39.4); CALC OSMOLALITY 292 mosm/kg (275-300); CALCIUM 8.9 mg/dL (8.5-10.1); CHLORIDE - SERUM 108 mmol/L (98-107); CREATININE - SERUM 1.8 mg/dL (0.6-1.3); GLUCOSE 118 mg/dL (74-106); INR 0.91 (0.85-1.17); POTASSIUM - SERUM 4.7 mmol/L (3.5-5.1); PROTIME 12.2 SECONDS (11.6-15.0); SODIUM 143 mmol/L (136-145); UREA NITROGEN 32 mg/dL (7-18); eGFR NON AFRICAN AMERICAN 28 mL/min (90-120)
[2020-05-26 21:30] VITALS: BP 223/105
[2020-05-26 21:30] LABS: ALBUMIN 3.2 g/dL (3.4-5.0); ALKALINE PHOSPHATASE 97 U/L (30-120); ALT (SGPT) 14 U/L (10-68); MAGNESIUM - SERUM 2.7 mg/dL (1.8-2.4); PRO BNP 1185 pg/mL (0-450); PROTEIN - SERUM 6.5 g/dL (6.4-8.2); TROPONIN-I < 0.017 ng/mL (0.000-0.060)
[2020-05-26 22:10] VITALS: BP 188/80
[2020-05-26 22:18] LABS: BILIRUBIN NEGATIVE (NEGATIVE); GLUCOSE NEGATIVE (NEGATIVE); KETONE NEGATIVE (NEGATIVE); NITRITE POSITIVE (NEGATIVE); UROBILINOGEN NORMAL (NORMAL)
[2020-05-26 22:19] LABS: BACTERIA MANY /hpf (NEGATIVE); EPITHELIAL CELLS 0-5 /hpf (0-5); RED CELLS - URINE 0-5 /hpf (0-5); WHITE CELLS - URINE >50 /hpf (NEGATIVE)
[2020-05-26] MEDS ORDERED: LUMIGAN 0.01%2.5 ML EACH EYE (23:30)
[2020-05-26 23:39] VITALS: BP 195/100; BMI 25.9
--- NOTE | 2020-05-27 02:02 | NUR ---
PATIENT BECOMES SOB WHEN GETTING UP AND DOWN TO RESTROOM. PURWICK PLACED.
[2020-05-27 04:00] VITALS: BP 216/84
--- NOTE | 2020-05-27 05:00 | NUR ---
PATIENT C/O OF CHEST. B/P 138/64 HR 78. 1 NITRO GIVEN. EKG OBTAINED.
--- NOTE | 2020-05-27 06:41 | NUR ---
NO FURTHER C/O CHEST PAIN.
[2020-05-27 07:51] VITALS: Ht 162.6 cm; Wt 68.6 kg
[2020-05-27 08:00] VITALS: BP 145/65
[2020-05-27 08:29] VITALS: BP 157/73
[2020-05-27 11:00] VITALS: BP 161/72
--- NOTE | 2020-05-27 12:35 | NUR ---
CALLED TO ROOM BY PATIENTS STATING SHE WAS HAVING CHEST PAIN, UPON ENTERING ROOM PATIENT STATED HER PAIN WAS MID STERNAL AND RADIATED TO THE RIGHT JAW AREA, WAS A 3/10, VITAL SIGNS FOLLOWS, 145/61, 90 20 AND O2 SAT 97%. OFFERED AND ACCEPTED NITRO 0.4.
--- NOTE | 2020-05-27 13:10 | NUR ---
PATIENT RESTING WITH EYES CLOSED, NO COMPLAINS OF PAIN.
--- NOTE | 2020-05-27 13:30 | NUR ---
PATIENT STATES NO PAIN, VITAL SIGNS 129/63, HEART RATE 84 O2 SAT 96%
--- NOTE | 2020-05-27 14:29 | NUR ---
[employer] CALLED TO HAVE PATIENT PREPPED AND WAS TOLD BY NURSE DARRIUS CHINO RN WE HAD NO PREOP ORDERS, NO CONSENTS AND PATIENT HAD NOT BEEN NPO AND HAD EATEN LUNCH. [employer] STATED THAT WAS OK, THEY WOULD GIVE HER ZOFRAN AND WERE PUTTING ORDERS IN NOW FOR PREOP AND CONSENTS.
--- NOTE | 2020-05-27 15:26 | CN ---
PATIENT NAME:RADHA KNIGHT MEDICAL RECORD: [id number] : 36 LOCATION:[place] D.2107 ADMIT DATE: 05/26/20 ACCOUNT: [id number] CONSULTING PHYSICIAN: ESTRELLITA GUTIERREZ MD REFERRING PHYSICIAN: SYDNIE BUCKNER MD DATE OF CONSULTATION: 05/27/2020 HISTORY OF PRESENT ILLNESS: An 80-year-old female with a history of coronary artery disease, status post intervention, most recently in 2014, has been having intermittent chest tightness and pressure over the past 2-3 weeks, this is radiating to the jaw accompanied by shortness of breath. Typically stays quite active for 80 years of age, walking outside, etc. We are asked to see her concerning her cardiovascular status. PAST MEDICAL HISTORY: Includes; 1. History of hypertension. 2. Hyperlipidemia. 3. Coronary artery disease as described above. MEDICATIONS: Include Procardia 30 mg p.o. every day, HCTZ 25 every day. ALLERGIES: INCLUDE DARVON, ULTRAM. SOCIAL HISTORY: Nonsmoker, nondrinker. She is able to care of all her ADLs. Stays quite active. REVIEW OF SYSTEMS: The patient reports easy bruising but reports no swollen glands. The patient reports no fever, no night sweats, no significant weight gain, no significant weight loss. No significant exercise tolerance. The patient reports no dry eyes, no irritation, no vision change. Patient reports no difficulty hearing and no ear pain. Patient reports no frequent nose bleeds or nose and sinus problems. Patient reports on arm pain on exertion. No shortness of breath while lying down. No history of heart murmur. Patient reports no cough, no wheezing or coughing up blood. Patient reports no abdominal pain, no vomiting. Normal appetite. No diarrhea and not vomiting blood. No nausea and no constipation. Patient reports no incontinence. No difficulty urinating. No hematuria. No increased frequency. Patient reports no muscle aches. No weakness, no arthralgias, no back pain. No swelling of the extremities. Patient reports no abnormal mole, no jaundice, no rashes. Reports no loss of consciousness. No weakness and no numbness. No seizures, dizziness, or headaches. The patient reports no depression, no sleep disturbance, feeling safe in a relationship and no alcohol abuse. Patient reports on fatigue. Reports no runny nose or sinus pressure. No itching, no hives, and no frequent sneezing. PHYSICAL EXAMINATION: GENERAL: Pleasant, in no acute distress, appears stated age. VITAL SIGNS: Blood pressure 157/73, pulse 81 and regular. HEENT: Normocephalic, atraumatic. NECK: No JVD or bruit. HEART: Regular, II/ systolic ejection murmur. LUNGS: Good air excursion. ABDOMEN: Soft, nontender. EXTREMITIES: Pulses 2+. There is no edema. CONSULT REPORT [id number] RADHA KNIGHT IMPRESSION: Probable hypertensive urgency given her pressures on admission with demand ischemia, true fixed lesion. I suspect the latter given the history of coronary artery disease. PLAN: For angiography, intervention based on the above. TRANSINT:[id number] Voice Confirmation ID: [id number] DOCUMENT ID: [id number] ESTRELLITA GUTIERREZ MD at 1526 CC: [id number] DICTATION DATE: 05/27/20 0846 TELETYPE TELEGRAPHER: 05/27/20 1134 ADM IN [facility] [id number] [place] [address]
[2020-05-27 20:00] VITALS: BP 163/76
--- NOTE | 2020-05-27 20:30 | NUR ---
PT IN BED, 4 HOUR FLAT TIME OVER PT SET UP IN BED, PT CONFUSED, TRYING TO GET OUT OF BED, FAMILY LEFT HER ALONE. SR UP X 2, CL IN REACH. BED ALARM ON.
--- NOTE | 2020-05-27 22:00 | NUR ---
PT IN BED, CONFUSED AND TRYING TO GET OUT OF BED, PT HELPED BACK TO BED, CL IN REACH, SR UP X 2. BED ALARM ON AT THIS TIME.
[2020-05-28 04:00] VITALS: BP 154/62
[2020-05-28 05:26] LABS: BASOPHILS 0.3 % (0-2); HEMOGLOBIN 11.9 g/dL (12-16); IMMATURE GRANULOCYTES 0.2 % (0-5); LYMPHOCYTES 15.3 % (15-50); MCH 30.1 pg (26.0-34.0); MCHC 31.3 g/dL (31.0-37.0); MCV 96.2 fL (80.0-100.0); MEAN PLATELET VOLUME 8.9 fL (7.4-10.4); MONOCYTES 10.6 % (2-11); NEUTROPHILS 71.6 % (40-80); PLATELET COUNT 223 10x3/uL (130-400); RBC 3.95 10x6/uL (4.00-5.40); RDW 13.8 % (11.5-14.5); WBC 5.9 10x3/uL (4.8-10.8)
[2020-05-28 05:49] LABS: ANION GAP 15.9 mmol/L (8-16); CALCIUM 9.3 mg/dL (8.5-10.1); CARBON DIOXIDE 22.8 mmol/L (21.0-32.0); CREATININE - SERUM 1.8 mg/dL (0.6-1.3); POTASSIUM - SERUM 4.7 mmol/L (3.5-5.1)
[2020-05-28] MEDS ORDERED: MACROBID100 MG PO (07:33)
[2020-05-28] MEDS ORDERED: PLAVIX75 MG PO (07:51)
[2020-05-28 08:00] VITALS: BP 170/73
[2020-05-28] MEDS ORDERED: BAYER CHEWABLE81 MG PO (08:10)
--- NOTE | 2020-05-28 09:27 | OP ---
PATIENT NAME: RADHA KNIGHT MEDICAL RECORD: [id number] :36 LOCATION:D.M2 D.2107 ADMISSION DATE:05/26/20 SURGEON: ESTRELLITA GUTIERREZ MD DATE OF OPERATION: 05/27/2020 PROCEDURE: Left heart catheterization, selective coronary angiography, right femoral artery approach. CATHETERS: A 5-[place] sheath, 5/4 left and right Luis Antonio, 5/4 pig. The procedure was well tolerated. The patient returned to the fuentes, sheath removed. ExoSeal device placed. FINDINGS: Left ventriculography in 30-degree SEN view: Normal wall motion and normal systolic function. CORONARY ANATOMY: LEFT MAIN: Left main is free of disease. LAD: Previous stenting is widely patent. No evidence of restenosis. No progression of [place] disease. CIRCUMFLEX: Free of disease. RIGHT CORONARY ARTERY: Previous stenting is widely patent. Distal stent is about 80% stenosis before takeoff of PD. PLAN: Intervention momentarily. DESCRIPTION OF PROCEDURE: A 5-[place] sheath was exchanged for a 6-[place] sheath. Hockey stick guiding catheter provided excellent guiding catheter support followed by 300 cm Whisper wire was placed, tightly occluded, 80% stenosis right down to distal portion of vessel. Stent deployed was a 3.5 x 15 mm Integrity nondrug eluting stent up to 14 atmospheres for 45 seconds. Final angiography shows excellent resolution of 80% stenosis, no significant residual. KAL flow was 3 throughout the procedure. Sheath closed with ExoSeal device. Plavix was loaded in the lab. TRANSINT:[id number] Voice Confirmation ID: [id number] DOCUMENT ID: [id number] ESTRELLITA GUTIERREZ MD at 0927 CC: [id number] DICTATION DATE: 05/27/20 1601 TACTICAL DEBRIEFER OFFICER: 05/27/20 230 ADM IN [facility] [address] [place] [address]
--- NOTE | 2020-05-28 10:12 | NUR ---
PT'S REPORTS RX'S NEED TO BE CALLED TO [facility] [address]. HAS WRITTEN RX FOR PLAVIX. CALLED [id number] ON BID TO PHARMACY REQUESTED. SPOKE WITH PHARMACISTANTTY.
--- NOTE | 2020-05-28 11:00 | NUR ---
PATIENT ATE BREAKFAST, SALINE LOCK TAKEN OUT, DRESSED, DISCHARGE PAPERS WITH PATIENT AND , NO SIGNS OF DISTRESS. TO CAR WITH VIA WHEELCHAIR.
--- NOTE | 2020-05-28 15:45 | MORECARE ---
CASE MANAGEMENT DISCHARGE SUMMARY PATIENT: RADHA ALMANZAR KAZ UNIT: [id number] ADM DATE: 05/26/20 AGE: 80 : 38 SEX: F ROOM/BED: D.2108 AUTHOR: KHANH BURGESS PHYSICIAN: REFERRING PHYSICIAN: SYDNIE BUCKNER MD DATE OF SERVICE: 05/28/20 Discharge Plan Patient Name[facility]MANZ[facility] 1940 Planned Disposition: Home Anticipated Discharge Date: 05/28/20 Discharge Date: 05/28/2020 Expected LOS: 2 Initial Reviewer: [email or web address] Initial Review Date: 05/26/2020 Generated: 05/28/20 4:45 pm Coverage Notice Reviewer: [id number] Compa Lechuga Notice Issued Date-Time: 05/27/2020 14:03 Notice Type: Medicare Outpatient Observation Notice Notice Delivered To: Family Member Relationship to Patient: Spouse Electric Refrigerator Preparer Name: Sarkis Almanzar Delivery Method: HAND - Hand Delivered Hodan Days: Prior Verbal Notification: Recipient Understood Notice: Yes Recipient Signature: Yes Med Rec Note Co-signed by Attending: Coverage Notice Comment: HOLLIDAY signed/delivered to patient. Original to chart. Patient Name: RADHA ALMANZAR Page [phone] at 1545 All edits/amendments must be made on the electronic document DICTATION DATE: 05/28/20 1545 CLIENT SERVICE ASSOCIATE: ANEL 05/28/20 1545 RPT#: [id number] DC DATE:05/28/20 STATUS: DIS IN [facility] [address] [place] [address] END OF REPORT
== END 2020-05-28 11:03 | disposition home or self-care (01) ==
LOC: D.ER 20:14 → D.M2 20:51 → OBSVTIME 20:51 → D.M2 20:51
PROVIDERS: Family Medicine; ADMIT Family Medicine; ATTEND Family Medicine
DX: I25.110 Atherosclerotic heart disease of native coronary artery with unstable angina pectoris (principal); N39.0 Urinary tract infection, site not specified; I24.8 Other forms of acute ischemic heart disease; I10 Essential (primary) hypertension

== ENCOUNTER 2020-07-06 09:08 | Inpatient (IN) | payer MEDICARE, OTHER ==
[2020-07-06] VITALS (7 sets, daily range): BP systolic 165–196; BP diastolic 65–98; BMI 29.2
[~2020-07-06] VITALS: Ht 162.6 cm; Wt 77.1 kg
[~2020-07-06 09:08] MED LIST changes: +BAYER CHEWABLE81 MG PO; +MACROBID100 MG PO
[2020-07-06] MEDS ORDERED: TIROSINT25 MCG PO (09:20)
[2020-07-06] MEDS ORDERED: COMBIGAN OPHT DR5 ML EACH EYE ×2 (09:20→13:22)
[2020-07-06 09:54] LABS: BASOPHILS 0.2 % (0-2); EOSINOPHILS 3.8 % (0-7); HEMATOCRIT 37.3 % (36.0-48.0); HEMOGLOBIN 11.6 g/dL (12-16); IMMATURE GRANULOCYTES 0.2 % (0-5); LYMPHOCYTES 24.3 % (15-50); MCH 29.5 pg (26.0-34.0); MCHC 31.1 g/dL (31.0-37.0); MCV 94.9 fL (80.0-100.0); MEAN PLATELET VOLUME 9.5 fL (7.4-10.4); MONOCYTES 7.9 % (2-11); NEUTROPHILS 63.6 % (40-80); PLATELET COUNT 208 10x3/uL (130-400); RBC 3.93 10x6/uL (4.00-5.40); RDW 13.6 % (11.5-14.5); WBC 4.7 10x3/uL (4.8-10.8)
[2020-07-06 10:01] LABS: CALC OSMOLALITY 303 mosm/kg (275-300); CARBON DIOXIDE 22.7 mmol/L (21.0-32.0); CHLORIDE - SERUM 109 mmol/L (98-107); CREATININE - SERUM 3.6 mg/dL (0.6-1.3); GLUCOSE 101 mg/dL (74-106); POTASSIUM - SERUM 4.6 mmol/L (3.5-5.1); SODIUM 143 mmol/L (136-145); UREA NITROGEN 66 mg/dL (7-18); eGFR NON AFRICAN AMERICAN 13 mL/min (90-120)
[2020-07-06 10:18] LABS: ALBUMIN 3.6 g/dL (3.4-5.0); ALKALINE PHOSPHATASE 84 U/L (30-120); ALT (SGPT) 14 U/L (10-68); APTT 28.7 SECONDS (22.8-39.4); BILIRUBIN - TOTAL 0.52 mg/dL (0.2-1.3); CKMB 5.4 U/L (0.0-3.6); CREATINE KINASE 301 UL (21-215); INR 0.98 (0.85-1.17); MAGNESIUM - SERUM 2.4 mg/dL (1.8-2.4); PROTEIN - SERUM 7.3 g/dL (6.4-8.2); THYROID STIMULATING HORMONE 1.42 uIU/mL (0.36-3.74)
[2020-07-06 10:19] LABS: TROPONIN-I 0.017 ng/mL (0.000-0.060)
[2020-07-06 10:31] LABS: BILIRUBIN NEGATIVE (NEGATIVE); KETONE NEGATIVE (NEGATIVE); NITRITE POSITIVE (NEGATIVE); UROBILINOGEN NORMAL (NORMAL)
[2020-07-06 10:34] LABS: BACTERIA MODERATE /hpf (NONE SEEN); EPITHELIAL CELLS OCC /hpf (0-5); WHITE CELLS - URINE 25-50 /hpf (0-5)
[2020-07-06 10:39] LABS: UDS - AMPHET NEGATIVE QUAL (NEGATIVE); UDS - BARB NEGATIVE QUAL (NEGATIVE); UDS - BENZO NEGATIVE QUAL (NEGATIVE); UDS - COCAINE NEGATIVE QUAL (NEGATIVE); UDS - OPIATE NEGATIVE QUAL (NEGATIVE); UDS - PCP NEGATIVE QUAL (NEGATIVE); UDS - THC NEGATIVE QUAL (NEGATIVE)
--- NOTE | 2020-07-06 12:05 | NUR ---
ELLE STOP TIME 1205.
--- NOTE | 2020-07-06 12:35 | NUR ---
NS BOLUS STOP TIME 8690
--- NOTE | 2020-07-06 13:00 | NUR ---
PT ARRIVED TO FLOOR VIA STRECHER WITH AT BEDSIDE. PT IS ALERT AND ORIENTED TO SELF ONLY. LUNCH TRAY AND WATER RECIEVED PER REQUEST. CALL LIGHT WITHIN REACH. BED IN LOWEST POSITION. DENIES FURTHER NEEDS OR PAIN AT THIS TIME. ORIENTED TO ROOM. ADJUSTED IN BED TO COMFORT. WILL CONTINUE TO MONITOR.
--- NOTE | 2020-07-06 20:26 | NUR ---
RECIEVED UP IN BED WITH EYES OPEN AND TV ON. ALERT AND ORIENTED TO PERSON ONLY. F/C INTACT WITH CLEAR YELLOW URINE DRAINING TO BEDSIDE DRAINAGE BAG. IV TO RT AC SL. NO S/S OF DISTRESS OBSERVED.
[2020-07-07] VITALS: BP 175/79
[2020-07-07 04:00] VITALS: BP 185/84
[2020-07-07 06:28] LABS: BASOPHILS 0.3 % (0-2); HEMATOCRIT 36.2 % (36.0-48.0); HEMOGLOBIN 11.6 g/dL (12-16); IMMATURE GRANULOCYTES 0.2 % (0-5); LYMPHOCYTES 20.3 % (15-50); MCV 93.5 fL (80.0-100.0); MEAN PLATELET VOLUME 9.4 fL (7.4-10.4); MONOCYTES 9.5 % (2-11); NEUTROPHILS 63.7 % (40-80); PLATELET COUNT 197 10x3/uL (130-400); RBC 3.87 10x6/uL (4.00-5.40); RDW 13.4 % (11.5-14.5)
[2020-07-07 06:40] LABS: ANION GAP 16.7 mmol/L (8-16); CALCIUM 8.6 mg/dL (8.5-10.1); CARBON DIOXIDE 21.8 mmol/L (21.0-32.0); CREATININE - SERUM 3.1 mg/dL (0.6-1.3); POTASSIUM - SERUM 4.5 mmol/L (3.5-5.1)
--- NOTE | 2020-07-07 07:30 | NUR ---
REPORT RECIEVED. PT LYING SEMI FOWLERS IN BED. RR EVEN AND UNLABORED ON RA. SHE HAS A HIDALGO DRAINING URINE AND A L WRIST PIV INFUSING NS @ 100. BED LOCKED AND IN LOWEST POSITION, CALL LIGHT WITHIN REACH. WILL CTM
[2020-07-07 07:42] VITALS: BP 172/83
[2020-07-07 11:29] VITALS: BP 163/68
[2020-07-07 15:30] VITALS: BP 166/66
--- NOTE | 2020-07-07 20:11 | NUR ---
RECIEVED LAYING IN BED WITH SPOUSE AT BEDSIDE. ALERT AND ORIENTED TO PERSON ONLY.IV TO LT WRIST SL. F/C INTACT WITH CLEAR YELLOW URINE DRAINING TO BEDSIDE DRAINAGE BAG. CALM AT THIS TIME. SPOUSE STATES SHE WAS BETTER TODAY MENTALLY. AND THAT HE WAS GOING TO LEAVE IN A LITTLE WHILE. NO OBVIOUS S/S OF DISTRESS OBSERVED.
[2020-07-08 04:00] VITALS: BP 156/63
[2020-07-08 06:41] LABS: BASOPHILS 1.8 % (0-2); EOSINOPHILS 6.7 % (0-7); HEMATOCRIT 34.5 % (36.0-48.0); HEMOGLOBIN 11.3 g/dL (12-16); IMMATURE GRANULOCYTES 3.5 % (0-5); LYMPHOCYTES 27.5 % (15-50); MCH 30.2 pg (26.0-34.0); MCHC 32.8 g/dL (31.0-37.0); MCV 92.2 fL (80.0-100.0); MEAN PLATELET VOLUME 10.1 fL (7.4-10.4); MONOCYTES 9.3 % (2-11); NEUTROPHILS 51.2 % (40-80); RBC 3.74 10x6/uL (4.00-5.40); RDW 13.3 % (11.5-14.5); WBC 5.7 10x3/uL (4.8-10.8)
[2020-07-08 06:42] LABS: PLATELET COUNT 142 10x3/uL (130-400)
[2020-07-08 07:42] LABS: ANION GAP 14.9 mmol/L (8-16); CALCIUM 8.1 mg/dL (8.5-10.1); CREATININE - SERUM 2.6 mg/dL (0.6-1.3); POTASSIUM - SERUM 3.9 mmol/L (3.5-5.1)
[2020-07-08 08:01] VITALS: BP 144/63
--- NOTE | 2020-07-08 12:52 | MORECARE ---
CASE MANAGEMENT DISCHARGE SUMMARY PATIENT: RADHA ALMANZAR KAZ UNIT: [id number] ADM DATE: 07/06/20 AGE: 80 : 38 SEX: F ROOM/BED: D.[facility] AUTHOR: KHANH BURGESS PHYSICIAN: REFERRING PHYSICIAN: SYDNIE BUCKNER MD DATE OF SERVICE: 07/08/20 Discharge Plan Patient Name: RADHA ALMANZAR [facility] [facility] 1940 Planned Disposition: Home Anticipated Discharge Date: Discharge Date: Expected LOS: Initial Reviewer: [email or web address] Initial Review Date: 07/08/2020 Generated: 07/08/20 1:52 pm DCPIA - Discharge Planning Initial Assessment Updated by [email or web address]: Niharika Blackwell on 07/08/20 12:50 pm * Is the patient Alert and Oriented? No * How many steps to enter\exit or inside your home? 0/0 * PCP Dr. Buckner * Pharmacy [facility] Preadmission Environment Home with Family * ADLs Partial Dependent * Partial ADLs (Assistance needed) Ambulation Bathing Dressing Medication Management Transfers * Equipment Cane Elevated [place] Seat Grab Bars Other Rolling Walker Shower Chair Walker * Other Equipment Rollator walker * List name and contact numbers for known caregivers / representatives who currently or will assist patient after discharge: Sarkis Almanzar - spouse - [phone] * Verbal permission to speak to the caregivers and representatives has been obtained from the patient. Yes * Community resources currently utilized Private Duty Care * Please name any agencies selected above. [facility] * Additional services required to return to the preadmission environment? No * Can the patient safely return to the preadmission environment? Yes * Has this patient been hospitalized within the prior 30 days at any hospital? No Patient Name: RADHA ALMANZAR Page [phone] at 1252 All edits/amendments must be made on the electronic document DICTATION DATE: 07/08/20 1252 LENS GENERATOR: ANEL 07/08/20 1252 RPT#: [id number] DC DATE: STATUS: ADM IN [facility] [address] [place] [address] END OF REPORT
--- NOTE | 2020-07-08 13:01 | MORECARE ---
CASE MANAGEMENT DISCHARGE SUMMARY PATIENT: RADHA ALMANZAR KAZ UNIT: [id number] ADM DATE: 07/06/20 AGE: 80 : 38 SEX: F ROOM/BED: D.6399 AUTHOR: KHANH BURGESS PHYSICIAN: REFERRING PHYSICIAN: SYDNIE BUCKNER MD DATE OF SERVICE: 07/08/20 Discharge Plan Patient Name: RADHA ALMANZAR Facility: [facility]:[place] : 1940 Planned Disposition: Home Anticipated Discharge Date: Discharge Date: Expected LOS: Initial Reviewer: [email or web address] Initial Review Date: 07/08/2020 Generated: 07/08/20 2:00 pm Comments DCP- Discharge Planning Updated by [email or web address]: Niharika Blackwell on 07/08/20 11:[address] Patient Name: RADHA ALMANZAR Admission Status: ER Accout number: [id number] Admission Date: 07-06-2020 : 1940 Admission Diagnosis:DISORIENTATION, UNSPECIFIED Attending: SYDNIE BUCKNER Current LOS: 2 Anticipated DC Date: Planned Disposition: Home Primary Insurance: MEDICARE A & B Discharge Planning Comments: Discharge Planning Comments: CM met with patient to complete initial dc planning assessment. She is a little confused, so most of my information comes from her , Sarkis. CM educated patient on the CM role and verbal consent given to complete assessment. Patient lives with her spouse. At discharge patient plans to return and feels this is a safe discharge. CM discussed availability of home health, rehab services, and medical equipment. Spouse states that they have care givers from [facility] that come in 7 days a week for 8 hour days to assist with bathing, dressing, medication management, house hold chores and meal preparation. He states at this time, he does not feel the need for rehab or home health visits. CM will continue to follow and will assist as needed with dc plans/needs. Body Designer: Niharika Blackwell DCPIA - Discharge Planning Initial Assessment Updated by [id number]: Niharika Blackwell on 07/08/20 12:50 pm * Is the patient Alert and Oriented? No * How many steps to enter\exit or inside your home? 0/0 * PCP Dr. Buckner * Pharmacy [facility] [address] * Preadmission Environment Home with Family * ADLs Partial Dependent * Partial ADLs (Assistance needed) Ambulation Bathing Dressing Medication Management Transfers * Equipment Cane Elevated [place] Seat Grab Bars Other Rolling Walker Shower Chair Walker * Other Equipment Rollator walker * List name and contact numbers for known caregivers / representatives who currently or will assist patient after discharge: Sarkis Almanzar - [facility] - [phone] * Verbal permission to speak to the caregivers and representatives has been obtained from the patient. Yes * Community resources currently utilized Private Duty Care * Please name any agencies selected above. [facility] * Additional services required to return to the preadmission environment? No * Can the patient safely return to the preadmission environment? Yes * Has this patient been hospitalized within the prior 30 days at any hospital? No Last DP export: 07/08/20 11:52 a Patient Name: RADHA ALMANZAR Page [phone] at 1301 All edits/amendments must be made on the electronic document DICTATION DATE: 07/08/20 1300 CUSTOM FEED MILL OPERATOR HELPER: ANEL 07/08/20 1300 RPT#: [id number] DC DATE: STATUS: ADM IN [facility] [address] [place] [address] END OF REPORT
[2020-07-08 13:28] VITALS: BP 149/60
[2020-07-08 16:50] VITALS: BP 163/75
--- NOTE | 2020-07-08 19:30 | NUR ---
PT ASKING WHERE HER DISCHARGE PAPERS ARE. SHE STATES SHE IS READY TO GO HOME. SHE IS ALERT BUT CONFUSED TO SITUATION AND TIME. BED LOW AND ALARM IS ON FOR SAFETY. CALL LIGHT WITHIN REACH. REORIENTED HER AND SHE DENIES NEEDS OR PAIN. SHE WANTS SOMETHING TO HELP HER SLEEP TONIGHT. LET HER KNOW SHE CAN HAVE MELATONIN BEFORE BED. SHE AGREED AND STATES SHE TAKES IT AT HOME.
[2020-07-08 21:26] VITALS: BP 159/70
[2020-07-09 04:02] VITALS: BP 130/54
[2020-07-09 06:46] LABS: BASOPHILS 0.5 % (0-2); EOSINOPHILS 8.1 % (0-7); HEMATOCRIT 31.6 % (36.0-48.0); HEMOGLOBIN 10.1 g/dL (12-16); IMMATURE GRANULOCYTES 0.2 % (0-5); LYMPHOCYTES 33.4 % (15-50); MCH 29.8 pg (26.0-34.0); MCV 93.2 fL (80.0-100.0); MEAN PLATELET VOLUME 9.3 fL (7.4-10.4); MONOCYTES 10.2 % (2-11); NEUTROPHILS 47.6 % (40-80); RBC 3.39 10x6/uL (4.00-5.40); RDW 13.3 % (11.5-14.5)
[2020-07-09 06:54] LABS: PLATELET COUNT 174 10x3/uL (130-400); WBC 4.2 10x3/uL (4.8-10.8)
[2020-07-09 06:58] LABS: ANION GAP 17.9 mmol/L (8-16); CALCIUM 7.9 mg/dL (8.5-10.1); CARBON DIOXIDE 20.1 mmol/L (21.0-32.0); CREATININE - SERUM 2.4 mg/dL (0.6-1.3)
--- NOTE | 2020-07-09 07:27 | NUR ---
recieved patient lying in bed requested water no other needs voiced.
[2020-07-09 08:04] VITALS: BP 133/76
[2020-07-09 11:53] VITALS: BP 152/83
[2020-07-09 14:02] VITALS: BMI 29.2
[2020-07-09 16:10] VITALS: BP 171/73
[2020-07-09 22:07] VITALS: BP 179/81
[2020-07-10 02:07] VITALS: BP 167/78
[2020-07-10 04:39] LABS: BASOPHILS 0.5 % (0-2); EOSINOPHILS 5.5 % (0-7); HEMATOCRIT 33.2 % (36.0-48.0); HEMOGLOBIN 10.8 g/dL (12-16); IMMATURE GRANULOCYTES 0.2 % (0-5); LYMPHOCYTES 24.8 % (15-50); MCH 30.3 pg (26.0-34.0); MCHC 32.5 g/dL (31.0-37.0); MEAN PLATELET VOLUME 9.2 fL (7.4-10.4); MONOCYTES 8.6 % (2-11); NEUTROPHILS 60.4 % (40-80); PLATELET COUNT 177 10x3/uL (130-400); RBC 3.57 10x6/uL (4.00-5.40); RDW 13.1 % (11.5-14.5)
[2020-07-10 04:40] LABS: WBC 5.6 10x3/uL (4.8-10.8)
[2020-07-10 04:54] LABS: ANION GAP 14.1 mmol/L (8-16); CALCIUM 8.4 mg/dL (8.5-10.1); CARBON DIOXIDE 20.7 mmol/L (21.0-32.0); CREATININE - SERUM 2.4 mg/dL (0.6-1.3); POTASSIUM - SERUM 3.8 mmol/L (3.5-5.1)
[2020-07-10 05:51] VITALS: BP 134/71
[2020-07-10 07:00] VITALS: BP 137/71
[2020-07-10 11:00] VITALS: BP 141/60
[2020-07-10 12:55] VITALS: Ht 162.6 cm; Wt 77.1 kg
[2020-07-10 15:00] VITALS: BP 93/41
[2020-07-10 16:42] LABS: BILIRUBIN NEGATIVE (NEGATIVE); KETONE NEGATIVE (NEGATIVE); NITRITE NEGATIVE (NEGATIVE); UROBILINOGEN NORMAL mg/dL (< 2)
[2020-07-10 16:44] LABS: WHITE CELLS - URINE 25-50 HPF (0-4)
[2020-07-10 16:45] LABS: AMORPHOUS SEDIMENT <1+ /lpf (NONE SEEN); BACTERIA MODERATE /HPF (NONE SEEN); EPITHELIAL CELLS 0-5 /hpf (0-5)
--- NOTE | 2020-07-10 19:33 | NUR ---
RECIEVED UP IN BED WITH EYES OPEN AND SPOUSE AT BEDSIDE. ALERT AND OREITNED TO PERSON ONLY. SPOUSE CONCERNED SHE WILL GET OOB AND FALL IN FLOOR. BED ALARM IN PLACE AND CLOSE TO NURSES STATION. IV INFILTRATED WITH REDNESS AND SWELLING TO LT FA. F/C INTACT WITH YELLOW URINE WITH SEDIMENT. NO S/S OF DISTRESS OBSERVED.
[2020-07-10 21:52] VITALS: BP 129/71
--- NOTE | 2020-07-10 23:04 | NUR ---
D/C'D INFILTRATED IV AND RESTARTED 22GA TO RIGHT WRIST WITH ATTEMPTS X1.
[2020-07-11 02:00] VITALS: BP 130/61
--- NOTE | 2020-07-11 05:29 | NUR ---
BECAME UPSET AND REFUSED TO HAVE HER V/S'S DONE.
[2020-07-11 06:19] VITALS: BP 146/64
[2020-07-11 06:39] LABS: BASOPHILS 0.4 % (0-2); EOSINOPHILS 5.6 % (0-7); HEMATOCRIT 31.4 % (36.0-48.0); IMMATURE GRANULOCYTES 0.2 % (0-5); LYMPHOCYTES 24.9 % (15-50); MCH 29.5 pg (26.0-34.0); MCHC 31.8 g/dL (31.0-37.0); MCV 92.6 fL (80.0-100.0); MEAN PLATELET VOLUME 9.3 fL (7.4-10.4); MONOCYTES 11.1 % (2-11); NEUTROPHILS 57.8 % (40-80); PLATELET COUNT 164 10x3/uL (130-400); RBC 3.39 10x6/uL (4.00-5.40); RDW 13.2 % (11.5-14.5)
[2020-07-11 06:56] LABS: ANION GAP 15.7 mmol/L (8-16); CALCIUM 8.3 mg/dL (8.5-10.1); CARBON DIOXIDE 19.3 mmol/L (21.0-32.0); CREATININE - SERUM 2.3 mg/dL (0.6-1.3)
[2020-07-11 08:12] VITALS: BP 153/76
--- NOTE | 2020-07-11 09:28 | NUR ---
UP AMBULATING WITH PT ASSIST. AT BS.
[2020-07-11 11:40] VITALS: BP 142/59
--- NOTE | 2020-07-11 13:15 | NUR ---
CR CALCIUM CALLED TO [facility]NE. NEW ORDERS GIVEN.
[2020-07-11 15:00] VITALS: BP 162/71
[2020-07-11 20:00] VITALS: BP 152/71
--- NOTE | 2020-07-11 20:08 | NUR ---
REPORT RECEIVED, WILL CONT POC. ALERT AND PLEASENTLY CONFUSED. NO S/S OF DISTRESS OBSERVED. RR EVEN AND UNLABORED ON RA. PT DENIES NEEDS AT THIS TIME. BED LOCKED AND LOWERED, CALL LIGHT IN REACH. ASSESSMENT COMPLETED AT THIS TIME. WILL CONT TO MONITOR.
[2020-07-12] VITALS: BP 156/79
--- NOTE | 2020-07-12 03:54 | NUR ---
PTS BED ALARM SOUNDED. UPON ENTERING THE ROOM PT WAS SEEN TRYING TO GET OF THE BED. WHEN APPROACHED TO REPOSITION IN BED, PT STATED "PLEASE, HELP. I PULLED THIS THING OUT." NEW IV ACCESS TO RIGHT LOWER SHOULDER. PREVIOUS CATHETER INTACE. NO S/S OF BLEEDING OR HEMATOMA NOTED AT PREVIOUS SITE. NEW ACCESS PATENT, RUNNING NS @ 75.
[2020-07-12 04:00] VITALS: BP 144/64
[2020-07-12 04:43] LABS: BASOPHILS 0.4 % (0-2); EOSINOPHILS 6.9 % (0-7); HEMATOCRIT 31.6 % (36.0-48.0); LYMPHOCYTES 25.5 % (15-50); MCH 29.5 pg (26.0-34.0); MCHC 31.6 g/dL (31.0-37.0); MCV 93.2 fL (80.0-100.0); MEAN PLATELET VOLUME 9.4 fL (7.4-10.4); MONOCYTES 11.8 % (2-11); NEUTROPHILS 55.4 % (40-80); PLATELET COUNT 180 10x3/uL (130-400); RBC 3.39 10x6/uL (4.00-5.40); RDW 13.2 % (11.5-14.5); WBC 5.1 10x3/uL (4.8-10.8)
[2020-07-12 05:35] LABS: ALBUMIN 2.9 g/dL (3.4-5.0); BILIRUBIN - TOTAL 0.29 mg/dL (0.2-1.3); CALCIUM 8.5 mg/dL (8.5-10.1); CARBON DIOXIDE 21.2 mmol/L (21.0-32.0); CREATININE - SERUM 2.3 mg/dL (0.6-1.3); POTASSIUM - SERUM 4.2 mmol/L (3.5-5.1); PROTEIN - SERUM 6.1 g/dL (6.4-8.2)
[2020-07-12 07:39] VITALS: BP 159/61
[2020-07-12 11:56] VITALS: BP 155/66
--- NOTE | 2020-07-12 12:50 | NUR ---
Nutrition Follow-up: Pt confused. attempting to feed pt breakfast but states she just woke up. Reports PO intake has not been very good. Ordering Boost with meals. Diet: Cardiac PO intake: 75% avg x 3 meals yesterday (50-100%) No new wt; last wt: 170# (07/09) Labs noted: Alb 2.9 Meds noted: Lauro, 1/2NS @ 75 -Encourage PO intake and honor food preferences within diet restrictions. -+Boost with meals. -Need new wt; noted daily wts ordered. -RD following.
[2020-07-12 16:12] VITALS: BP 147/69
[2020-07-12 20:11] VITALS: BP 146/60
--- NOTE | 2020-07-12 20:23 | NUR ---
REPORT RECEIVED, WILL CONT POC. PT SLEEPING PEACEFULLY. NO S/S OF DISTRESS OBSERVED. RR EVEN AND UNLABORED ON RA. ASSESSMENT COMPLETED AT THIS TIME. BED LOCKED AND LOWERED, CALL LIGHT IN REACH. WILL CONT TO MONITOR.
[2020-07-13] VITALS: BP 157/57
[2020-07-13 04:00] VITALS: BP 162/64
[2020-07-13 05:41] LABS: BASOPHILS 0.5 % (0-2); EOSINOPHILS 6.9 % (0-7); HEMATOCRIT 31.3 % (36.0-48.0); HEMOGLOBIN 9.9 g/dL (12-16); LYMPHOCYTES 31.7 % (15-50); MCH 29.7 pg (26.0-34.0); MCHC 31.6 g/dL (31.0-37.0); MEAN PLATELET VOLUME 9.6 fL (7.4-10.4); MONOCYTES 12.7 % (2-11); NEUTROPHILS 48.2 % (40-80); PLATELET COUNT 184 10x3/uL (130-400); RBC 3.33 10x6/uL (4.00-5.40); RDW 13.3 % (11.5-14.5); WBC 4.3 10x3/uL (4.8-10.8)
[2020-07-13 05:54] LABS: ANION GAP 12.6 mmol/L (8-16); CALCIUM 8.3 mg/dL (8.5-10.1); CARBON DIOXIDE 21.5 mmol/L (21.0-32.0); CREATININE - SERUM 2.3 mg/dL (0.6-1.3); POTASSIUM - SERUM 4.1 mmol/L (3.5-5.1)
[2020-07-13 07:00] VITALS: BP 178/76
[2020-07-13 11:00] VITALS: BP 196/87
--- NOTE | 2020-07-13 11:00 | NUR ---
PT SITTING ON SIDE OF BED WITH IN ROOM. WAITING FOR THERAPY TO WALK THEN SIT IN CHAIR FOR LUNCH.
[2020-07-13 14:00] VITALS: BP 145/70
[2020-07-13 20:00] VITALS: BP 122/50
--- NOTE | 2020-07-13 20:00 | NUR ---
REPORT RECEIVED, WILL CONT POC. PT A& PLEASENTLY CONFUSED. TRANSFERED PT TO CHAIR, WATCHING TV. NO S/S OF DISTRESS NOTED. RR EVEN AND UNLABORED ON RA. PT DENIES NEEDS AT THIS TIME. BED LOCKED AND LOWERED, CALL LIGHT IN REACH. ASSESSMENT COMPLETED AT THIS TIME. WILL CONT TO MONITOR.
--- NOTE | 2020-07-14 07:24 | NUR ---
RT SHOULDER PIV INFILTRATED. DC'D WITH CATH INTACT. VASCULAR ACCESS CONSULT PLACED.
[2020-07-14] MEDS ORDERED: PROCARDIA XL60 MG PO (08:25)
--- NOTE | 2020-07-14 08:28 | NUR ---
DR. BUCKNER STATED TO ME TO D/C HIDALGO AND MAKE GILBERTO PT URINATES BEFORE SHE DC'S AND TO NOT RESTART IV BECAUSE PT IS DC TODAY. I VERBALIZED UNDERSTANDING.
--- NOTE | 2020-07-14 08:40 | NUR ---
diana catheter clamped. bladder training before revoming diana cath.
--- NOTE | 2020-07-14 08:45 | NUR ---
diana catheter dc'd and pt assisted to the bsc.
--- NOTE | 2020-07-14 09:32 | MORECARE ---
CASE MANAGEMENT DISCHARGE SUMMARY PATIENT: RADHA ALMANZAR KAZ UNIT: [id number] ADM DATE: 07/06/20 AGE: 80 : 38 SEX: F ROOM/BED: D.0878 AUTHOR: KHANH BURGESS PHYSICIAN: REFERRING PHYSICIAN: SYDNIE BUCKNER MD DATE OF SERVICE: 07/14/20 Discharge Plan Patient Name: RADHA ALMANZAR Facility: [facility]:[place] : 1940 Planned Disposition: Home Anticipated Discharge Date: Discharge Date: Expected LOS: Initial Reviewer: [email or web address] Initial Review Date: 07/08/2020 Generated: 07/14/20 10:31 am Comments DCP- Discharge Planning Updated by [email or web address]: Niharika Blackwell on 07/14/20 8:[address] CM received an order for discharge and home health for physical therapy. I spoke with patient and in the room and they decline home health, declination signed. Informed that if they changed their mind once they are home to call Dr. Buckner's office to have home health set up for them. Home today. DCP- Discharge Planning Updated by [email or web address]: Niharika Blackwell on 07/08/20 11:[address] Patient Name: RADHA ALMANZAR Admission Status: ER Accout number: [id number] Admission Date: 07-06-2020 : 1940 Admission Diagnosis:DISORIENTATION, UNSPECIFIED Attending: SYDNIE BUCKNER Current LOS: 2 Anticipated DC Date: Planned Disposition: Home Primary Insurance: MEDICARE A & B Discharge Planning Comments: Discharge Planning Comments: CM met with patient to complete initial dc planning assessment. She is a little confused, so most of my information comes from her , Sarkis. CM educated patient on the CM role and verbal consent given to complete assessment. Patient lives with her spouse. At discharge patient plans to return and feels this is a safe discharge. CM discussed availability of home health, rehab services, and medical equipment. Spouse states that they have care givers from [facility] that come in 7 days a week for 8 hour days to assist with bathing, dressing, medication management, house hold chores and meal preparation. He states at this time, he does not feel the need for rehab or home health visits. CM will continue to follow and will assist as needed with dc plans/needs. Cultural Anthropology Professor: Niharika Blackwell DCPIA - Discharge Planning Initial Assessment Updated by STEPH: Niharika Blackwell on 07/08/20 12:50 pm * Is the patient Alert and Oriented? No * How many steps to enter\exit or inside your home? 0/0 * PCP Dr. Buckner * Pharmacy [facility] [address] [facility] [address] [facility] * Preadmission Environment Home with Family * ADLs Partial Dependent * Partial ADLs (Assistance needed) Ambulation Bathing Dressing Medication Management Transfers * Equipment Cane Elevated [place] Seat Grab Bars Other Rolling Walker Shower Chair Walker * Other Equipment Rollator walker * List name and contact numbers for known caregivers / representatives who currently or will assist patient after discharge: Sarkis Almanzar - spouse - [phone] * Verbal permission to speak to the caregivers and representatives has been obtained from the patient. Yes * Community resources currently utilized Private Duty Care * Please name any agencies selected above. [facility] * Additional services required to return to the preadmission environment? No * Can the patient safely return to the preadmission environment? Yes * Has this patient been hospitalized within the prior 30 days at any hospital? No Coverage Notice Reviewer: [email or web address] Compa Blackwell Notice Issued Date-Time: 07/14/2020 9:17 Notice Type: Patient Choice Letter Notice Delivered To: Family Member Relationship to Patient: Spouse User Experience Analyst Name: Sarkis Almanzar Delivery Method: HAND - Hand Delivered Hodan Days: Prior Verbal Notification: Recipient Understood Notice: Yes Recipient Signature: Yes Med Rec Note Co-signed by Attending: Coverage Notice Comment: [employer] for declination of HHS Reviewer: [email or web address] Compa Blackwell Notice Issued Date-Time: 07/14/2020 9:17 Notice Type: IM Discharge Notice Notice Delivered To: Family Member Relationship to Patient: Spouse User Experience Analyst Name: Sarkis Delivery Method: HAND - Hand Delivered Hodan Days: Prior Verbal Notification: Recipient Understood Notice: Yes Recipient Signature: Yes Med Rec Note Co-signed by Attending: Coverage Notice Comment: Last DP export: 07/08/20 12:01 p Patient Name: RADHA ALMANZAR Page [phone] at 0932 All edits/amendments must be made on the electronic document DICTATION DATE: 07/14/20931 REPAIR ORDER CLERK: ANEL 07/14/20931 RPT#: [id number] DC DATE: STATUS: ADM IN [facility] [address] [place] [address] END OF REPORT
--- NOTE | 2020-07-14 10:58 | NUR ---
PT URINATED IN B[facility].
[2020-07-14] MEDS ORDERED: ESTRACE 0.0142.5 GM VG (11:02)
--- NOTE | 2020-07-14 11:41 | NUR ---
I have reviewed this patient and I concur with the Shift Assessment completed by the Licensed Practical Nurse today this shift.
--- NOTE | 2020-07-14 12:10 | NUR ---
PT HAS NO IV AND NO TELEMETRY. DISCHARGE INSTUCTIONS GIVEN AND REVIEWED WITH PT AND PT'S SPOUSE. PT CONFUSED, SPOUSE SIGNED DISCAHRGE PAPERS. PT TAKEN OUT VIA WC BY ASSIGNMENT EDITOR WITH ALL BELONGINGS AND LEFT WITH SPOUSE IN THEIR PERSONAL VEHICLE.
== END 2020-07-14 15:10 | disposition home or self-care (01) | DRG 689 ==
LOC: D.ER 09:08 → D.M2 10:58 → D.EDHOLD 10:58 → D.M2 11:57 → D.SDCHOLD 13:40 → D.M2 07-14 15:10
PROVIDERS: Emergency Medicine; Internal Medicine; ADMIT Family Medicine; ATTEND Family Medicine
DX: N39.0 Urinary tract infection, site not specified (principal); N17.0 Acute kidney failure with tubular necrosis; G93.40 Encephalopathy, unspecified; E86.0 Dehydration; I12.9 Hypertensive chronic kidney disease with stage 1 through stage 4 chronic kidney disease, or unspecified chronic kidney disease; N18.9 Chronic kidney disease, unspecified; B96.1 Klebsiella pneumoniae [K. pneumoniae] as the cause of diseases classified elsewhere; Z86.73 Personal history of transient ischemic attack (TIA), and cerebral infarction without residual deficits; Z87.891 Personal history of nicotine dependence

== ENCOUNTER 2020-07-21 09:17 | Inpatient (IN) | payer MEDICARE, OTHER ==
[~2020-07-21] VITALS: Ht 162.6 cm; Wt 63.5 kg
[~2020-07-21 09:17] MED LIST changes: +ESTRACE 0.0142.5 GM VG; +TIROSINT25 MCG PO
[2020-07-21 09:30] VITALS: BP 167/65
[2020-07-21 09:56] LABS: BILIRUBIN NEGATIVE (NEGATIVE); KETONE NEGATIVE (NEGATIVE); NITRITE POSITIVE (NEGATIVE); UROBILINOGEN NORMAL mg/dL (< 2)
[2020-07-21 10:04] LABS: BACTERIA MANY HPF (NONE SEEN); EPITHELIAL CELLS 0-5 /hpf (0-5); WHITE CELLS - URINE >50 HPF (0-4)
[2020-07-21 10:24] LABS: BASOPHILS 0.2 % (0-2); EOSINOPHILS 5.2 % (0-7); HEMATOCRIT 35.3 % (36.0-48.0); HEMOGLOBIN 11.1 g/dL (12-16); LYMPHOCYTES 23.8 % (15-50); MCH 29.8 pg (26.0-34.0); MCHC 31.4 g/dL (31.0-37.0); MCV 94.9 fL (80.0-100.0); MEAN PLATELET VOLUME 8.7 fL (7.4-10.4); MONOCYTES 10.6 % (2-11); NEUTROPHILS 60.2 % (40-80); RBC 3.72 10x6/uL (4.00-5.40); RDW 13.2 % (11.5-14.5); WBC 4.4 10x3/uL (4.8-10.8)
[2020-07-21 10:29] LABS: PLATELET COUNT 223 10x3/uL (130-400)
[2020-07-21 10:51] LABS: ANION GAP 12.1 mmol/L (8-16); CALCIUM 9.1 mg/dL (8.5-10.1); CARBON DIOXIDE 24.7 mmol/L (21.0-32.0); CREATININE - SERUM 2.5 mg/dL (0.6-1.3); POTASSIUM - SERUM 4.8 mmol/L (3.5-5.1)
[2020-07-21 10:55] VITALS: BP 169/62
[2020-07-21 10:56] LABS: ALBUMIN 3.5 g/dL (3.4-5.0); BILIRUBIN - TOTAL 0.46 mg/dL (0.2-1.3); PROTEIN - SERUM 6.6 g/dL (6.4-8.2)
[2020-07-21 11:27] LABS: APTT 23.6 SECONDS (22.8-39.4); INR 0.88 (0.85-1.17)
[2020-07-21 12:06] LABS: CKMB 1.8 U/L (0.0-3.6); CREATINE KINASE 85 UL (21-215); MAGNESIUM - SERUM 2.5 mg/dL (1.8-2.4); THYROID STIMULATING HORMONE 2.04 uIU/mL (0.36-3.74)
[2020-07-21 12:07] LABS: TROPONIN-I < 0.017 ng/mL (0.000-0.060)
--- NOTE | 2020-07-21 14:25 | NUR ---
COVID SWAB COLLECTED AND SENT TO THE LAB.
[2020-07-21 15:35] VITALS: BP 192/82
[2020-07-21 16:00] VITALS: BP 180/83
--- NOTE | 2020-07-21 16:06 | NUR ---
DIFFICULT IV INSERTION REQUIRED U/S.
--- NOTE | 2020-07-21 16:30 | NUR ---
ELLE STOP TIME @ 2678
--- NOTE | 2020-07-21 16:45 | NUR ---
LT FA SHINK TEAR CLEANED WITH WOUND CLEANSER. XEROFORM DRSG APPLIED AND WRAPPED WITH KERLEX. SECURED WITH TAPE.
[2020-07-21 17:53] VITALS: BP 215/95
--- NOTE | 2020-07-21 18:30 | NUR ---
16 POLISH HIDALGO INSERTED USING PROJECT PRODUCTION ENGINEER. 160CC OF URINE IN BAG
[2020-07-21 20:00] VITALS: BP 187/76
[2020-07-22] VITALS: BP 136/61
[2020-07-22 01:37] LABS: UDS - AMPHET NEGATIVE QUAL (NEGATIVE); UDS - BARB NEGATIVE QUAL (NEGATIVE); UDS - BENZO NEGATIVE QUAL (NEGATIVE); UDS - COCAINE NEGATIVE QUAL (NEGATIVE); UDS - OPIATE NEGATIVE QUAL (NEGATIVE); UDS - PCP NEGATIVE QUAL (NEGATIVE); UDS - THC NEGATIVE QUAL (NEGATIVE)
--- NOTE | 2020-07-22 01:52 | NUR ---
PATIENT IS ALERT TO PERSION ONLY. CONFUSED PULLING AT IV LINES, AND FOLLEY CATH TUBING. TRYING TO CLIMB OUT OF BED MULTABLE TIMES. B/P 180/70, HR 88, CALL TO ESTIMATOR BINDING DR. PEREZ NEW ORDERS FOR (1)CLONIDINE 0.1MG EVERY 4 HOURS PRN FOR SBP OF 170 (2) HALDOL 2MG IV EVERY 4 HOURS PRN FOR DELIRIUM MEDS GIVEN, PATIENT RESTING NO LONGER PULLING AT LINES OR ATEMPTING TO GET OUT OF BED. IV TO LEFT AC WITH NS AT 125. UA COLECTED AND SENT TO LAB. RESTING RESPIRATION EVEN NAD UNLABORED CALL LIGHT AND WATER IN [facility]. CHECKED OFTEN FOR NEEDS AND SAFETY.
[2020-07-22 04:00] VITALS: BP 113/50
--- NOTE | 2020-07-22 09:30 | NUR ---
ASSESSMENT PER FLOW SHEET. PATIENT AWAKENS INT. CONFUSED. BED ALARM AND MAREK MAT WORKING .CALL LIGHT IN REACH. DOOR OPEN
[2020-07-22 12:33] VITALS: BP 143/60
[2020-07-22 12:57] LABS: ANION GAP 13.8 mmol/L (8-16); CALCIUM 7.9 mg/dL (8.5-10.1); POTASSIUM - SERUM 4.8 mmol/L (3.5-5.1)
[2020-07-22 13:42] VITALS: Ht 162.6 cm; Wt 63.5 kg
--- NOTE | 2020-07-22 14:45 | NUR ---
HAS BEEN VERY ANXIOUS AND TRYING TO GET OUT OF BED. MEDS ORDERED PER MAR
--- NOTE | 2020-07-22 15:40 | NUR ---
PATIENT PULLED UP IN BED AGAIN. SHE IS STILL MOVING IN BED AND PULLING AT IV AND HIDALGO. LINES HIDDEN OUT OF SITE FROM PATIENT
[2020-07-22 17:26] VITALS: BP 149/71
--- NOTE | 2020-07-22 19:30 | NUR ---
PT SITTING UP IN BED, ORIENTED TO SELF ONLY. AT BEDSIDE. IV LEFT FA INFUSING NS @ 125. SCDS ON. MAREK ON. DENIES NEEDS AT THIS TIME. CL IN REACH, WILL CTM
[2020-07-22 20:00] VITALS: BP 108/87
--- NOTE | 2020-07-22 20:30 | NUR ---
PT LEFT AND PT BEGAN TRYING TO CLIMB OUT OF BED. PULLING ON IV AND HIDALGO. NOT FOLLOWING COMMANDS TO STAY IN BED. PT HALLUCINATING AND GRABBING AT THINGS THAT ARE NOT THERE. ORIENTED TO SELF ONLY. GAVE HALDOL ORDERED. WILL CTM
[2020-07-23] VITALS: BP 200/59
[2020-07-23 00:15] VITALS: BP 146/72; BP 174/72
--- NOTE | 2020-07-23 00:15 | NUR ---
PT FIGHTING AGAINST NURSES AID WHILE TRYING TO GET VITALS. KEPT GETTING READINGS LIKE 200/59 AND 187/138. THIS NURSE TOOK MANUAL BP, BP 146/72
[2020-07-23 04:00] VITALS: BP 136/62
--- NOTE | 2020-07-23 07:00 | NUR ---
REPORT REC'D FROM [facility]. PT REMAINS CONFUSED. IV TO LT FA IS PATENT AND INFUSING. PT CONTINUES TO UNDRESS SELF. BED ALARM ON. TM.
[2020-07-23 07:40] LABS: HEMATOCRIT 31.2 % (36.0-48.0); HEMOGLOBIN 9.8 g/dL (12-16); MCH 30.5 pg (26.0-34.0); MCHC 31.4 g/dL (31.0-37.0); MEAN PLATELET VOLUME 9.8 fL (7.4-10.4); RBC 3.21 10x6/uL (4.00-5.40); RDW 13.6 % (11.5-14.5)
[2020-07-23 07:58] LABS: MCV 97.2 fL (80.0-100.0); PLATELET COUNT 168 10x3/uL (130-400)
[2020-07-23 08:02] LABS: ANION GAP 17.1 mmol/L (8-16); CALCIUM 8.1 mg/dL (8.5-10.1); CARBON DIOXIDE 17.3 mmol/L (21.0-32.0); CREATININE - SERUM 1.7 mg/dL (0.6-1.3); POTASSIUM - SERUM 4.4 mmol/L (3.5-5.1)
[2020-07-23 08:34] VITALS: BP 140/72
[2020-07-23 10:28] LABS: EOSINOPHILS 3 % (0-7); LYMPHOCYTES 28 % (15-50); MONOCYTES 7 % (2-11); NEUTROPHILS 62 % (40-80)
[2020-07-23 10:29] LABS: PLATELET ESTIMATE NORMAL; ROULEAUX OCC
--- NOTE | 2020-07-23 12:16 | NUR ---
OT NOTE: PT REMAINS VERY LETHARGIC.. UNABLE TO AROUSE. SPOKE WITH DTR WHO STATES THAT SHE WAS ABLE TO WAKE HER UP ENOUGH TO EAT, BUT SHE HAD TO FEED HER, PT WAS UNABLE TO PERFORM.. WILL ATTEMPT LATER. EITAN ROBBINS, OTR/L
[2020-07-23 12:55] VITALS: BP 175/79
--- NOTE | 2020-07-23 14:28 | MORECARE ---
CASE MANAGEMENT DISCHARGE SUMMARY PATIENT: RADHA KNIGHT KAZ UNIT: [id number] ADM DATE: 07/21/20 AGE: 80 : 38 SEX: F ROOM/BED: D.2232 AUTHOR: KHANH BURGESS PHYSICIAN: REFERRING PHYSICIAN: SYDNIE BUCKNER MD DATE OF SERVICE: 07/23/20 Discharge Plan Patient Name: RADHA KNIGHT [facility] [facility] 1940 Planned Disposition: Anticipated Discharge Date: Discharge Date: Expected LOS: Initial Reviewer: [email or web address] Initial Review Date: 07/21/2020 Generated: 07/23/20 3:27 pm DCPIA - Discharge Planning Initial Assessment Updated by [email or web address]: Ines Correia on 07/23/20 2:22 pm * Is the patient Alert and Oriented? No * PCP SITA * Pharmacy [facility] * Preadmission Environment Other * Facility Name [facility] * Other Equipment CANE, ELEVATED TOILET, GRAB BARS, WALKER, SC, ROLATOR WALKER * List name and contact numbers for known caregivers / representatives who currently or will assist patient after discharge: [phone] * Community resources currently utilized Private Duty Care * Has this patient been hospitalized within the prior 30 days at any hospital? Yes Patient Name: RADHA KNIGHT Page 78170 at 1428 All edits/amendments must be made on the electronic document DICTATION DATE: 07/23/201426 WELDING TEACHER: ANEL 07/23/20 142 RPT#: [id number] DC DATE: STATUS: ADM IN [facility] [address] [place] [address] END OF REPORT
--- NOTE | 2020-07-23 14:36 | MORECARE ---
CASE MANAGEMENT DISCHARGE SUMMARY PATIENT: RADHA KNIGHT KAZ UNIT: [id number] ADM DATE: 07/21/20 AGE: 80 : 38 SEX: F ROOM/BED: D.2232 AUTHOR: ADITYA,DOC PHYSICIAN: REFERRING PHYSICIAN: SYDNIE BUCKNER MD DATE OF SERVICE: 07/23/20 Discharge Plan Patient Name: RADHA KNIGHT Facility: [facility]:[place] : 1940 Planned Disposition: Anticipated Discharge Date: Discharge Date: Expected LOS: Initial Reviewer: [id number] Initial Review Date: 07/21/2020 Generated: 07/23/20 3:36 pm Comments DCP- Discharge Planning Updated by [email or web address]: Ines Correia on 07/23/20 1:[address] Patient Name: RADHA KNIGHT Admission Status: ER Accout number: [id number] Admission Date: 07-21-2020 : 1940 Admission Diagnosis:URINARY TRACT INFECTION, SITE NOT SPECIFIED Attending: SYDNIE BUCKNER Current LOS: 2 Anticipated DC Date: Planned Disposition: Primary Insurance: MEDICARE A & B Discharge Planning Comments: CM met with patient AND HER DAUGHTER IN LAW EDILMA at bedside after explaining CM role and obtaining verbal consent. CM discussed availability / needs of home health, REHAB and medical equipment. PATIENT CONFUSED AT THIS TIME. FAMILY STATES SHE HAS EQUIPMENT AT HOME AND HAS 24 HR CARE 7 DAYS PER WEEK WITH [facility]. SON AND DUAGHTER LIVE CLOSE TO HER AND HER . FAMILY PLANS FOR HER TO RETURN HOME WHEN MENTATION HAS IMPROVED. I ANTICIPATE POSSIBLE NEED FOR REHAB. CM TO FOLLOW AND ASSIST NEEDED. Cut In Station Operator: Ines Correia DCPIA - Discharge Planning Initial Assessment Updated by [email or web address]: Ines Correia on 07/23/20 2:22 pm * Is the patient Alert and Oriented? No * PCP SITA * Pharmacy [facility] * Preadmission Environment Other * Facility Name [facility] * Other Equipment CANE, ELEVATED TOILET, GRAB BARS, WALKER, SC, ROLATOR WALKER * List name and contact numbers for known caregivers / representatives who currently or will assist patient after discharge: [phone] * Community resources currently utilized Private Duty Care * Has this patient been hospitalized within the prior 30 days at any hospital? Yes Last DP export: 07/23/20 1:28 p Patient Name: RADHA KNIGHT Page [phone] at 1436 All edits/amendments must be made on the electronic document DICTATION DATE: 07/23/201435 BOILER REPAIRMAN: ANEL 07/23/201435 RPT#: [id number] DC DATE: STATUS: ADM IN [facility] [address] [place] [address] END OF REPORT
[2020-07-23 17:22] VITALS: BP 154/78
--- NOTE | 2020-07-23 20:30 | NUR ---
SUPINE IN BED, ALERT, ORIENTED TO SELF. REFUSES TO OWEAR GOWN. PULLING AT HIDALGO AND IV TUBING. WHEN EXTENDING PTs LEFT ARM TO ASSESS IV, PT SHOUTED, "I DO NOT WANT TO HAVE SEX!" REASSURED PT SHE WAS AT HOSPITAL AND I WAS HER NURSE AND I WAS ONLY CHECKING HER IV. PT GAVE NO VERBAL RESPONSE. IV FLUSHED WITH EASE, PATENT. BED IN LOW POSITION, CL WITHIN REACH, BED ALARM ON AND FUNCTIONING. POPSEY ALARM BATTERIES CHANGED, ON AND FUNCTIONING. SIDE RAILS X 3. FOOLEY SECURED TO LEFT LEG WITH STAT LOCK, CTM.
[2020-07-24 01:14] VITALS: BP 185/74
--- NOTE | 2020-07-24 01:18 | NUR ---
I have reviewed this patient and I concur with the Shift Assessment completed by the Licensed Practical Nurse today this shift.
[2020-07-24 05:57] VITALS: BP 189/63
--- NOTE | 2020-07-24 06:45 | NUR ---
RESTING IN BED WITH EYES CLOSED. RESPIRATIONS EVEN AND UNLABORED. NO S/S OF ACUTE DISTRESS NOTED. BEDREST. HIDALGO CATHETER PRESENT. MAREK AND BED ALARM ON. REFUSED TO KEEP SCDS ON. BUE BRUISING. IV TO LEFT AC, NS INFUSING @ 100ML/HR. SITE PATENT WITHOUT REDNESS OR SWELLING. CALL LIGHT IN REACH. WILL CONTINUE TO MONITOR.
[2020-07-24 09:27] VITALS: BP 203/85
[2020-07-24 09:53] LABS: BASOPHILS 0.2 % (0-2); EOSINOPHILS 1.7 % (0-7); HEMATOCRIT 32.3 % (36.0-48.0); HEMOGLOBIN 10.3 g/dL (12-16); IMMATURE GRANULOCYTES 0.2 % (0-5); MCH 30.4 pg (26.0-34.0); MCHC 31.9 g/dL (31.0-37.0); MCV 95.3 fL (80.0-100.0); MEAN PLATELET VOLUME 8.8 fL (7.4-10.4); MONOCYTES 8.3 % (2-11); NEUTROPHILS 76.6 % (40-80); PLATELET COUNT 189 10x3/uL (130-400); RBC 3.39 10x6/uL (4.00-5.40); RDW 13.3 % (11.5-14.5); WBC 5.2 10x3/uL (4.8-10.8)
[2020-07-24 10:11] LABS: ANION GAP 15.2 mmol/L (8-16); CALCIUM 8.7 mg/dL (8.5-10.1); CARBON DIOXIDE 18.2 mmol/L (21.0-32.0); CREATININE - SERUM 1.7 mg/dL (0.6-1.3); POTASSIUM - SERUM 4.4 mmol/L (3.5-5.1); VANCOMYCIN - RANDOM 9.6 ug/mL (10.0-20.0)
--- NOTE | 2020-07-24 12:22 | NUR ---
PATIENT'S FAMILY STATED "SHE IS VERY AGITATED AND TALKING OUT OF HER HEAD, NEEDS SOMETHING TO CALM HER DOWN." THIS NURSE ADMINISTERED HALDOL PER PHYSICIAN ORDER TO THE LEFT DELTOID, EXPLAINED TO SPOUSE THAT THIS MEDICATION WILL/CAN CAUSE SEDATION, SPOUSE VERBALIZED UNDERSTANDING.
--- NOTE | 2020-07-24 14:05 | NUR ---
PATIENT STILL AGITATED AND PULLING ON HIDALGO, GAVE 1MG HALDOL PER PHYSICIAN ORDER IN THE RIGHT DELTOID.
--- NOTE | 2020-07-24 15:52 | NUR ---
I have reviewed this patient and I concur with the Shift Assessment completed by the Licensed Practical Nurse today this shift.
--- NOTE | 2020-07-24 19:00 | NUR ---
PATIENT RESTING WTIH EYES CLOSED AND UNLABORED RESPIRATIONS. INSTRUCTED BY FAMILY TO NOT WAKE PATIENT IF SLEEPING. PATIENT DOES NOT APPEAR TO DISTRESS. CALL LIGHT CLOSE. BED ALARM ON. CPOC.
--- NOTE | 2020-07-24 21:06 | NUR ---
PATIENT AROUSING. ORIENTED TO SELF, ONLY. MOANS WHEN ASSESSING. DOES NOT FOLLOW COMMANDS. IV TO THE LEFT AC REMOVED DUE TO REDNESS AND UNABLE TO FLUSH. RESITED IV TO THE LEFT UPPER ARM. CALL LIGHT CLOSE. CPOC.
[2020-07-25] VITALS (7 sets, daily range): BP systolic 172–195; BP diastolic 60–75
--- NOTE | 2020-07-25 06:13 | NUR ---
0422 ADMINISTERED PRN CLONIDINE FOR BP OF 192/74. REASSESSED AND CURRENTLY 172/69
--- NOTE | 2020-07-25 19:00 | NUR ---
PATIENT ATTEMPTING TO GET OUT OF BED. UNCOOPERATIVE AND SLIGHTLY AGGRESSIVE. ATTEMPTS MADE TO REDIRECT PATIENT ATTENTION. BED ALARM AND MAREK ALARM ON. HIDALGO INTACT. DOOR OPEN FOR MONITORING.
--- NOTE | 2020-07-25 19:30 | NUR ---
IN ROOM SEVERAL TIMES ATTEMPTING TO KEEP PATIENT IN BED. PATIENT TALKING BUT NOT MAKING ANY SENSE. BACK IN BED AT THIS TIME. FALL PRECAUTIONS REMAIN IN PLACE. CPOC.
--- NOTE | 2020-07-25 20:15 | NUR ---
PATIENT PULLING GOWN OFF. PATIENT PULLED OUT LEFT UPPER ARM IV, CATH IN TACT. PATIENT VERY AGGITATED. ATTEMPTING TO RESITE IV, PATIENT PINCHED THIS NURSE, SCREAMED NO.
--- NOTE | 2020-07-25 21:02 | NUR ---
PATIENT SITTING UP. TALKING TO THIS NURSE. CONVERSATIONS NOT MAKING SENSE. ADMINISTERED PO ATIVAN TO PATIENT, PATIENT TOOK WITH NO PROBLEMS. ATTEMPTED TO GET OUT OF BED SEVERAL MORE TIMES. PULLING ON HIDALGO. EXPLAINED TO PATIENT IMPORTANCE OF IV, KEEPING HIDALGO IN PLACE, AND STAYING IN BED TO AVOID INJURY. PATIENT REPLIES "OKAY."
--- NOTE | 2020-07-25 22:19 | NUR ---
PATIENT CALMING DOWN. NO LONGER ATTEMPTING TO GET OUT OF BED OR PULL HIDALGO. PATIENT COMPLIANT AT THIS TIME. STATES "YES" WHEN ASKED IF THIS NURSE COULD RESITE IV. RESITED IV TO THE RIGHT UPPER ARM. ADMINISTERED IVPB ABX. PATIENT RESTING WITH EXITING THE ROOM. CPOC.
--- NOTE | 2020-07-26 01:26 | NUR ---
RESTING WITH NO SIGNS OR SYMPTOMS OF DISTRESS AT THIS TIME. RESPIRATIONS ARE EVEN AND UNLABORED. CALL LIGHT CLOSE. FALL PRECAUTIONS REMAIN IN PLACE. CPOC.
[2020-07-26 01:34] VITALS: BP 177/71
[2020-07-26 05:13] VITALS: BP 184/72
--- NOTE | 2020-07-26 07:15 | NUR ---
PT SITTING UP IN BED A & O X1, DISORIENTATED TO PLACE, TIME AND SITUATION. PIV IN RIGHT SHOULDER, PATENT AND INFUSING, NO REDNESS OR SWELLNIG. HIDALGO IN PLACE, DRAINING TO GRAVITY, CLR YELLOW URINE, STATLOCK IN PLACE. SKIN TEAR ON LEFT FOREARM, DRSG INTACT. BED ALARM ON, BED LOW, RAILS X2. CL IN REACH, WILL CONTINUE TO MONITOR.
[2020-07-26 07:59] VITALS: BP 127/70
--- NOTE | 2020-07-26 10:15 | NUR ---
CHANGED DRSG ON LEFT FOREARM, APPLIED VASO GAUZE, 4 X4, AND PAPER TAPE. PT TOLERATED WELL, BED ALARM ON, BED LOW, CL IN REACH.
[2020-07-26 10:46] LABS: BILIRUBIN NEGATIVE (NEGATIVE); KETONE NEGATIVE (NEGATIVE); NITRITE NEGATIVE (NEGATIVE); UROBILINOGEN NORMAL mg/dL (< 2)
[2020-07-26 10:47] LABS: BACTERIA FEW HPF (NONE SEEN); EPITHELIAL CELLS RARE /hpf (0-5); WHITE CELLS - URINE RARE HPF (0-4)
--- NOTE | 2020-07-26 11:45 | NUR ---
CHANGED PT LININS AND GOWN, PERFORMED BED BATH, PT TOLERATED WELL. ASSISTED PT TO CHAIR, ALARM ON, CL IN REACH, WILL CONTINUE TO MONITOR.
[2020-07-26 11:49] VITALS: BP 171/66
--- NOTE | 2020-07-26 12:35 | NUR ---
PT AGGRAVATED AND ANXIOUS. GAVE ATIVAN IV. PT TOLERATED WELL. SITTING IN CHAIR, ALARM ON, CL IN REACH. WILL CONTINUE TO MONITOR.
--- NOTE | 2020-07-26 14:35 | NUR ---
PT NAKED AND TRYING TO CLIMB OUT OF THE BED, REORIENTATED PT TO BED AND CLOTHES. DRESSED PT. BED ALARM ON, CL IN REACH.
--- NOTE | 2020-07-26 15:07 | NUR ---
OT NOTE: PT CONFUSED AND REQUIRED CUES FOR TASK COMPLETION. PT REQUIRED MIN A FOR SIT TO STAND. PT REQUIRED MOD A FOR SIT TO SUPINE FOR LE MANAGEMENT. PT COMPLETED FACE HYGIENE WITH MOD A. [id number] HANNA JIMENEZ COTA
[2020-07-26 20:00] VITALS: BP 148/60
[2020-07-27 04:00] VITALS: BP 167/66
--- NOTE | 2020-07-27 07:15 | NUR ---
RECEIVED BEDSIDE REPORT. PT LAYING IN BED, EYES CLOSED, EVEN RESPIRATIONS. PIV TO RIGHT SHOULDER, PATENT AND INFUSING, NO REDNESS OR SWELLING. HIDALGO IN PLACE, DRAINING TO GRAVITY, URINE CLR, YELLOW, STATLOCK IN PLACE. BED LOW, RAILS X2, ALARM ON. CL IN REACH. WILL CONTINUE TO MONITOR.
[2020-07-27 08:51] VITALS: BP 198/83
--- NOTE | 2020-07-27 11:29 | NUR ---
Multiple bruised areas noted on arms. No chronic wounds noted. Wound care continues to monitor.
[2020-07-27 11:51] VITALS: BP 119/48
--- NOTE | 2020-07-27 13:15 | NUR ---
PT AGGITATED AND ANXIOUS, PROVIDED ANX MEDS PER ORDER. PT TOLERATED WELL. BED LOW, ALARM ON. CL IN REACH, WILL CONTINUE TO MONITOR.
[2020-07-27 18:09] VITALS: BP 142/70
--- NOTE | 2020-07-27 18:12 | NUR ---
OT NOTE: PT REQUIRED MAX A WITH SUPINE TO SIT. PT COMPLETED SIT TO STAND WITH MIN/MOD A. PT COMPLETED ADL MOB WITH MIN A . PT REQUIRED MAX A WITH WALKER MANAGEMENT. PT COMPLETED BUE AROM WITH FUNCTIONAL TASKS . STATED PT CONTINUES TO BE CONFUSED. STATED PT EATS VERY LITTLE. NURSING NOTIFIED. PT REQUIRES ASSIST WITH MEALS. NURSING STATED THAT PT IS ASSISTED WITH MEALS. PT REQUIRED EXTRA TIME SECONDARY TO CONFUSION AND PROCESSING. [id number] THANK YOU,RAH JIMENEZ
[2020-07-27 20:00] VITALS: BP 187/88
--- NOTE | 2020-07-27 20:00 | NUR ---
PT LYILNG IN BED WITHOUT DISTRESS, ORIENTED TO SELF ONLY. AT BEDSIDE. IV RIGHT UPPER ARM INFUSING NS @ 100. HIDALGO IN PLACE. BED ALARM ON. DENIES NEEDS AT THIS TIME. CL IN REACH, WILL CTM
[2020-07-28 04:00] VITALS: BP 173/79
--- NOTE | 2020-07-28 07:15 | NUR ---
RECEIVED BEDSIDE REPORT. PT LAYING IN BED, EVEN RESPIRATIONS, EYES CLOSED. PIV IN RIGHT SHOULDER, PATENT AND INFUSING, NO REDNESS OR SWELLING. HIDALGO IN PLACE, DRAINING TO GRAVITY, STATLOCK UNATTACHED, PLACED NEW STATLOCK TO LEFT THIGH. LEFT FOREARM, SKIN TEAR, DRSG C/D/I. BRUISES BILAT ARMS, UPPER CHEST. BED LOW, ALARM ON, RAILS X2. CL IN REACH. WILL CONTINUE TO MONITOR.
[2020-07-28 07:45] LABS: ANION GAP 14.1 mmol/L (8-16); CALCIUM 8.7 mg/dL (8.5-10.1); CARBON DIOXIDE 21.8 mmol/L (21.0-32.0); CREATININE - SERUM 1.6 mg/dL (0.6-1.3); POTASSIUM - SERUM 3.9 mmol/L (3.5-5.1)
[2020-07-28 07:58] VITALS: BP 107/53; BP 111/69; BP 186/81
--- NOTE | 2020-07-28 08:45 | NUR ---
PT TRYING TO CRAWL OUT OF BED NAKED, REORIENTATED TO SITUATION AND PLACE. AT BEDSIDE. ASSISTED PT WITH DRINKING WHOLE ENSURE, PT TOLERATED WELL. BED LOW, ALARM ON, RAILS X2. WILL CONTINUE TO MONITOR.
[2020-07-28 09:00] LABS: HEMATOCRIT 31.4 % (36.0-48.0); HEMOGLOBIN 10.1 g/dL (12-16); MCH 30.1 pg (26.0-34.0); MCHC 32.2 g/dL (31.0-37.0); MCV 93.5 fL (80.0-100.0); PLATELET COUNT 179 10x3/uL (130-400); RBC 3.36 10x6/uL (4.00-5.40); RDW 13.4 % (11.5-14.5); WBC 4.5 10x3/uL (4.8-10.8)
--- NOTE | 2020-07-28 10:45 | NUR ---
PHYSICAL THERAPY IN ROOM, PT TOLERATED WELL. BED LOW, ALARM ON, CL IN REACH.
[2020-07-28 11:38] VITALS: BP 113/57
[2020-07-28 12:53] LABS: EOSINOPHILS 9 % (0-7); LYMPHOCYTES 21 % (15-50); MONOCYTES 10 % (2-11); NEUTROPHILS 59 % (40-80); PLATELET ESTIMATE NORMAL
--- NOTE | 2020-07-28 14:06 | NUR ---
ASSISTED PT IN BED. PT PULLING AT HIDALGO TUBE, PROVIDED PT WITH TUBING TO HOLD AND TWIST, PT SEEMS TO HAVE FORGOTTEN ABOUT HIDALGO TUBING. BED LOW, RAILS X2, ALARM ON. CL IN REACH.
--- NOTE | 2020-07-28 14:43 | NUR ---
Nutrition Follow-up: Noted Pt was seen by today for mental status exam, pt unable to complete. Diet: Regular PO intake: 0-25% x last 3 meals recorded Last BM: none recorded since admit. Wt: 140# (07/22/20), no new weight Meds noted: miralax (PRN), probiotics, NS@100. Labs noted: GFR 33(L) Noted no BM recorded x 7 days now. MD to consider increase in bowel regimen. Needs new weight. Will add Ensure with meals. RD following.
--- NOTE | 2020-07-28 14:55 | NUR ---
OT NOTE: PT COMPLETED SUPINE TO SIT WITH MOD/MAX A. PT COMPLETED SIT TO STAND WITH MIN A. PT COMPLETED ADL MOB WITH MIN A. PT REQUIRED MOD A FOR WALKER MANAGEMENT. PT REQUIRED VERBAL CUES FOR STEP SEQUENCING. PT COMPLETED HAIR GROOMING WITH MAX A AT EOB. [phone] THANK YOU,RAH JIMENEZ
[2020-07-28 16:37] VITALS: BP 169/81
--- NOTE | 2020-07-28 17:30 | NUR ---
OT NOTE: PT SEEN FOLLOWING ST THIS PM.. PT CONFUSED..DIFFICULTY STAYING ON TASK. FREQ CUES REQUIRED. EXTENSIVE ASSIST WITH ROLLING SIDE TO SIDE; ATTEMPTED UE/LE EXS WITH MAX CUES. MAX CUES WITH SIMPLE GROOMING TASK. DECREASED ATTN TO TASK. ATTEMPTS TO RE ORIENT EITAN ROBBINS, OTR/L [id number]
[2020-07-28 20:00] VITALS: BP 146/55
--- NOTE | 2020-07-28 20:00 | NUR ---
PT LYING IN BED SLEEPING WITHOUT DISTRESS, IV RIGHT UPPER ARM INFUSING NS @ 100. MAREK ON. CL IN REACH, WILL CTM
--- NOTE | 2020-07-28 22:41 | NUR ---
PT NAKED TRYING TO CLIMB OUT OF BED. REPOSITIONED PT IN BED, PUT GOWN ON. MAREK ON. WILL CTM
[2020-07-29] VITALS: BP 144/77
[2020-07-29 04:00] VITALS: BP 191/84
--- NOTE | 2020-07-29 07:30 | NUR ---
PT IS RESTING IN BED WITH EYES CLOSED. RESPIRATIONS ARE EVEN AND UNLABORED. PT IS EASILY AROUSED WITH VERBAL STIMULATION. PT IS CONFUSED TO PLACE/TIME/SITUATION UPON AROUSAL. PT DENIES PRESENCE OF PAIN/N/V/DYSPNEA AT THIS TIME. BUE AND BLE STRENGTH ARE EVEN. FALL PRECAUTIONS IN PLACE. PIV TO RIGHT SHOULDER INFUSING WITHOUT DIFFICULTY PER ORDER. BED IS IN THE LOWEST POSITION. CALL LIGHT AND BEDSIDE TABLE ARE WITHIN REACH. SIDE RAILS X 2. ROOM CLOSE TO NURSE STATION. PT DENIES FURTHER NEEDS. WILL CONT TO MONITOR.
[2020-07-29 08:07] VITALS: BP 171/79
--- NOTE | 2020-07-29 10:59 | MORECARE ---
CASE MANAGEMENT DISCHARGE SUMMARY PATIENT: RADHA KNIGHT KAZ UNIT: [id number] ADM DATE: 07/21/20 AGE: 80 : 38 SEX: F ROOM/BED: D.2232 AUTHOR: ADITYA,DOC PHYSICIAN: REFERRING PHYSICIAN: SYDNIE BUCKNER MD DATE OF SERVICE: 07/29/20 Discharge Plan Patient Name: RADHA KNIGHT Facility: [facility]:[place] : 1940 Planned Disposition: Anticipated Discharge Date: Discharge Date: Expected LOS: Initial Reviewer: [email or web address] Initial Review Date: 07/21/2020 Generated: 07/29/20 11:58 am Comments DCP- Discharge Planning Updated by [email or web address]: Tala Denney on 07/29/20 9:[address] REFERRAL SENT TO [facility] DCP- Discharge Planning Updated by [email or web address]: Ines Correia on 07/23/20 1:[address] Patient Name: RADHA KNIGHT Admission Status: ER Accout number: [id number] Admission Date: 07-21-2020 : 1940 Admission Diagnosis:URINARY TRACT INFECTION, SITE NOT SPECIFIED Attending: SYDNIE BUCKNER Current LOS: 2 Anticipated DC Date: Planned Disposition: Primary Insurance: MEDICARE A & B Discharge Planning Comments: CM met with patient AND HER DAUGHTER IN LAW EDILMA at bedside after explaining CM role and obtaining verbal consent. CM discussed availability / needs of home health, REHAB and medical equipment. PATIENT CONFUSED AT THIS TIME. FAMILY STATES SHE HAS EQUIPMENT AT HOME AND HAS 24 HR CARE 7 DAYS PER WEEK WITH [facility]. SON AND DUAGHTER LIVE CLOSE TO HER AND HER . FAMILY PLANS FOR HER TO RETURN HOME WHEN MENTATION HAS IMPROVED. I ANTICIPATE POSSIBLE NEED FOR REHAB. CM TO FOLLOW AND ASSIST NEEDED. Sand Temperer: Ines Correia DCPIA - Discharge Planning Initial Assessment Updated by [email or web address]: Ines Correia on 07/23/20 2:22 pm * Is the patient Alert and Oriented? No * PCP SITA * Pharmacy [facility] * Preadmission Environment Other * Facility Name [facility] * Other Equipment CANE, ELEVATED TOILET, GRAB BARS, WALKER, SC, ROLATOR WALKER * List name and contact numbers for known caregivers / representatives who currently or will assist patient after discharge: [phone] * Community resources currently utilized Private Duty Care * Has this patient been hospitalized within the prior 30 days at any hospital? Yes External Providers External Provider: [facility] Contact Date: Service Request Date: Service Type: Resolution: Reviewer: Comments: Last DP export: 07/23/20 1:36 p Patient Name: RADHA KNIGHT Page [phone] at 1059 All edits/amendments must be made on the electronic document DICTATION DATE: 07/29/201057 WELDING TESTER: ANEL 07/29/201057 RPT#: [id number] DC DATE: STATUS: ADM IN [facility] [address] [place] [address] END OF REPORT
[2020-07-29 12:04] VITALS: BP 137/81
[2020-07-29 16:58] VITALS: BP 184/77
--- NOTE | 2020-07-29 17:07 | NUR ---
PT WITH HTN. PRN APRESOLINE ADMINISTERED PER ORDER.
[2020-07-29 20:00] VITALS: BP 112/76
--- NOTE | 2020-07-29 20:00 | NUR ---
PT SITTING UP IN BED WITHOUT DISTRESS, ORIENTED TO SELF ONLY. PT KEEPS ATTEMPTING TO GET OUT OF BED. VERY CONFUSED TO TIME, PLACE AND SITUATION. UNABLE TO REORIENT. LET PT SIT ON EDGE OF BED FOR A WHILE WITH ASSIST. HAD PT GET BACK IN BED AND REPOSITIONED FOR COMFORT. PROVIDED WATER. MAREK ON. REFUSES SCDS. CL IN REACH, WILL CTM
--- NOTE | 2020-07-29 22:20 | NUR ---
OT NOTE: PT REQUIRED MAX A FOR SUPINE TO SIT.PT REQUIRED MAX A FOR EOB SITTING. PT VERY LETHARGIC. PT REQUIRED MAX A FOR SIT TO SUPINE IN BED. PT EXHIBITE DECREASED ENDUARNCE. NOTIFIED NURSING OF FATIGUE AND DECREASED SPEECH INTELLIGIBILITY. PT DID NOT EXHIBIT ABNORMAL TONE IN BUE. NURSING STATED PT DID NOT TAKE AM MEDS. NURSING WILL ASSESS. [phone] THANK YOU,RAH JIMENEZ
--- NOTE | 2020-07-29 22:30 | NUR ---
PT CONTINUING TO TRY AND GET OUT OF BED. PT ORIENTED TO SELF ONLY. THIS NURSE PLACED PT LEGS BACK IN BED AND PT WOULD IMMEDIATELY PUT LEGS BACK OUT OF BED. REPOSITIONED PT SEVERAL TIMES TO GET COMFORTABLE. PT EVENTUALLY STOPPED TRYING TO GET OUT OF BED AND STARTED FALLING ASLEEP. WILL CTM
[2020-07-30 04:00] VITALS: BP 195/96
--- NOTE | 2020-07-30 07:15 | NUR ---
REC'D IN BED AWAKE AND ALERT TO SELF ONLY. RESP EVEN AND UNLABORED WITH NO DISTRESS NOTED. ASSESSMENT COMPLETED. C/L IN REACH AT BEDSIDE.
[2020-07-30 10:10] VITALS: BP 173/69
--- NOTE | 2020-07-30 10:15 | MORECARE ---
CASE MANAGEMENT DISCHARGE SUMMARY PATIENT: RADHA KNIGHT KAZ UNIT: [id number] ADM DATE: 07/21/20 AGE: 80 : 38 SEX: F ROOM/BED: D.2232 AUTHOR: ADITYA,DOC PHYSICIAN: REFERRING PHYSICIAN: SYDNIE BUCKNER MD DATE OF SERVICE: 07/30/20 Discharge Plan Patient Name: RADHA KNIGHT Facility: [facility]:[place] : 1940 Planned Disposition: Anticipated Discharge Date: Discharge Date: Expected LOS: Initial Reviewer: [email or web address] Initial Review Date: 07/21/2020 Generated: 07/30/20 11:14 am Comments DCP- Discharge Planning Updated by [id number]: Ines Correia on 07/30/20 9:[address] Patient Name: RADHA KNIGHT Admission Status: ER Accout number: [id number] Admission Date: 07-21-2020 : 1940 Admission Diagnosis:URINARY TRACT INFECTION, SITE NOT SPECIFIED Attending: SYDNIE BUCKNER Current LOS: 9 Anticipated DC Date: Planned Disposition: Primary Insurance: MEDICARE A & B Discharge Planning Comments: UPDATED LABS AND CLINICALS FAXED TO [facility]. Cyber Special Agent: Ines Correia DCP- Discharge Planning Updated by [id number]: Tala Denney on 07/29/20 9:[address] REFERRAL SENT TO [facility] DCP- Discharge Planning Updated by [id number]: Ines Correia on 07/23/20 1:[address] Patient Name: RADHA KNIGHT Admission Status: ER Accout number: [id number] Admission Date: 07-21-2020 : 1940 Admission Diagnosis:URINARY TRACT INFECTION, SITE NOT SPECIFIED Attending: SYDNIE BUCKNER Current LOS: 2 Anticipated DC Date: Planned Disposition: Primary Insurance: MEDICARE A & B Discharge Planning Comments: CM met with patient AND HER DAUGHTER IN LAW EDILMA at bedside after explaining CM role and obtaining verbal consent. CM discussed availability / needs of home health, REHAB and medical equipment. PATIENT CONFUSED AT THIS TIME. FAMILY STATES SHE HAS EQUIPMENT AT HOME AND HAS 24 HR CARE 7 DAYS PER WEEK WITH [facility]. SON AND DUAGHTER LIVE CLOSE TO HER AND HER . FAMILY PLANS FOR HER TO RETURN HOME WHEN MENTATION HAS IMPROVED. I ANTICIPATE POSSIBLE NEED FOR REHAB. CM TO FOLLOW AND ASSIST NEEDED. Cyber Special Agent: Inesanita Correia DCPIA - Discharge Planning Initial Assessment Updated by [email or web address]: Ines Correia on 07/23/20 2:22 pm * Is the patient Alert and Oriented? No * PCP SITA * Pharmacy [facility] * Preadmission Environment Other * Facility Name [facility] * Other Equipment CANE, ELEVATED TOILET, GRAB BARS, WALKER, SC, ROLATOR WALKER * List name and contact numbers for known caregivers / representatives who currently or will assist patient after discharge: [phone] * Community resources currently utilized Private Duty Care * Has this patient been hospitalized within the prior 30 days at any hospital? Yes Last DP export: 07/29/20 9:59 a Patient Name: RADHA KNIGHT Page [phone] at 1015 All edits/amendments must be made on the electronic document DICTATION DATE: 07/30/20 1014 PATTERNMAKER APPRENTICE METAL: ANEL 07/30/20 1014 RPT#: [id number] DC DATE: STATUS: ADM IN [facility] [address] [place] [address] END OF REPORT
--- NOTE | 2020-07-30 10:53 | MORECARE ---
CASE MANAGEMENT DISCHARGE SUMMARY PATIENT: RADHA KNIGHT KAZ UNIT: [id number] ADM DATE: 07/21/20 AGE: 80 : 38 SEX: F ROOM/BED: D.[facility] AUTHOR: KHANH BURGESS PHYSICIAN: REFERRING PHYSICIAN: SYDNIE BUCKNER MD DATE OF SERVICE: 07/30/20 Discharge Plan Patient Name: RADHA KNIGHT Facility: [facility]:[place] : 1940 Planned Disposition: Anticipated Discharge Date: Discharge Date: Expected LOS: Initial Reviewer: [id number] Initial Review Date: 07/21/2020 Generated: 07/30/20 11:52 am Comments DCP- Discharge Planning Updated by [email or web address]: Ines Correia on 07/30/20 9:[address] Patient Name: RADHA KNIGHT Admission Status: ER Accout number: [id number] Admission Date: 07-21-2020 : 1940 Admission Diagnosis:URINARY TRACT INFECTION, SITE NOT SPECIFIED Attending: SYDNIE BUCKNER Current LOS: 9 Anticipated DC Date: Planned Disposition: Primary Insurance: MEDICARE A & B Discharge Planning Comments: UPDATED LABS AND CLINICALS FAXED TO [facility]. Card Scraper: Ines Correia Appended by Ines Correia on 07/30/2020 10:49 CDT: IMM SIGNED. PATIENT IN AGREEMENT WITH GOING TO [facility] TODAY, THEY HAVE ACCEPTED HER AND HAVE A BED AVAILABLE. I CONTACTED DR. BUCKNER'S OFFICE TO NOTIFY ACCEPTANCE. ANTICIPATE DC ORDER SOON. DCP- Discharge Planning Updated by [id number]: Tala Denney on 07/29/20 9:[address] REFERRAL SENT TO [facility] DCP- Discharge Planning Updated by [email or web address]: Ines Correia on 07/23/20 1:[address] Patient Name: RADHA KNIGHT Admission Status: ER Accout number: [id number] Admission Date: 07-21-2020 : 1940 Admission Diagnosis:URINARY TRACT INFECTION, SITE NOT SPECIFIED Attending: SYDNIE BUCKNER Current LOS: 2 Anticipated DC Date: Planned Disposition: Primary Insurance: MEDICARE A & B Discharge Planning Comments: CM met with patient AND HER DAUGHTER IN LAW EDILMA at bedside after explaining CM role and obtaining verbal consent. CM discussed availability / needs of home health, REHAB and medical equipment. PATIENT CONFUSED AT THIS TIME. FAMILY STATES SHE HAS EQUIPMENT AT HOME AND HAS 24 HR CARE 7 DAYS PER WEEK WITH [facility]. SON AND DUAGHTER LIVE CLOSE TO HER AND HER . FAMILY PLANS FOR HER TO RETURN HOME WHEN MENTATION HAS IMPROVED. I ANTICIPATE POSSIBLE NEED FOR REHAB. CM TO FOLLOW AND ASSIST NEEDED. Card Scraper: Ines Correia DCPIA - Discharge Planning Initial Assessment Updated by [email or web address]: Ines Correia on 07/23/20 2:22 pm * Is the patient Alert and Oriented? No * PCP SITA * Pharmacy [facility] [address] * Preadmission Environment Other * Facility Name [facility] * Other Equipment CANE, ELEVATED TOILET, GRAB BARS, WALKER, SC, ROLATOR WALKER * List name and contact numbers for known caregivers / representatives who currently or will assist patient after discharge: [phone] * Community resources currently utilized Private Duty Care * Has this patient been hospitalized within the prior 30 days at any hospital? Yes Coverage Notice Reviewer: [id number] - Ines Correia Notice Issued Date-Time: 07/30/2020 10:46 Notice Type: IM Discharge Notice Notice Delivered To: Family Member Relationship to Patient: Telehealth Nurse Educator Name: DAUGHTER INLAW Delivery Method: HAND - Hand Delivered Hodan Days: Prior Verbal Notification: Recipient Understood Notice: Yes Recipient Signature: Yes Med Rec Note Co-signed by Attending: Coverage Notice Comment: Last DP export: 07/30/20 9:15 a Patient Name: RADHA KNIGHT Page [phone] at 1053 All edits/amendments must be made on the electronic document DICTATION DATE: 07/30/20 1053 PACKAGING SUPERVISOR: ANEL 07/30/20 1053 RPT#: [id number] DC DATE: STATUS: ADM IN [facility] [address] [place] [address] END OF REPORT
--- NOTE | 2020-07-30 12:19 | NUR ---
OT NOTE: PT DOING BETTER TODAY. MUCH MORE ALERT AND VERBALLY RESPONSIVE. SPEECH INTELLIGABLE BUT PT REMAINS CONFUSED AND DISORIENTED. BED MOB WITH MAX ASSIST FOR SUPINE TO SIT; MAX ASSIST WITH STATIC SITTING UNTIL PLACING A WALKER IN FRONT OF PT SO THAT SHE COULD PERFORM MORE HIP FLEX VS EXTENSION. PT WANTING TO TAKE A SHOWER. EXPLAINED THAT IF SHE COULD WALK TO SHOWER THAT WE WOULD ASSIST HER. PERFORMED APPROX 5 SIT TO STANDS, BUT UNABLE TO TAKE STEPS. PROVIDED PT WITH BASIN OF WARM WATER AND WASH CLOTHS.. SHE WAS ABLE TO WASH FACE AND HANDS WITH ASSIST ( POOR COORDINATION)..MAX ASSIST WITH BACK, ARMS, CHEST, LEGS, FEET, AND PERINEAL AREA. PTS CATHETER WAS LEAKING AND NURSING NOTIFIED. PT WANTED TO GO TO SINK AND BRUSH TEETH, BUT AGAIN, PT ABLE TO STAND FOR A FEW SECONDS BUT WOULD NOT TAKE ANY STEPS TODAY. REQUIRED MAX ASSIST TO CHUY GOWN DUE TO IMPAIRED COORDINATION AND MAX ASSIST TO CHUY SOCKS DUE TO DECREASED DYNAMIC SITTING BALANCE. BACK TO BED WITH MAX ASSIST X 2; REPOSITIONED WITH MAX ASSIST X 2. EITAN ROBBINS, OTR/L [phone]
[2020-07-30] MEDS ORDERED: MERREM 1 GM/NS 11 G1 IV (12:39)
[2020-07-30] MEDS ORDERED: CATAPRES TTS-10.1 MG TRANSDERM (12:40)
--- NOTE | 2020-07-30 13:47 | MORECARE ---
CASE MANAGEMENT DISCHARGE SUMMARY PATIENT: RADHA KNIGHT KAZ UNIT: [id number] ADM DATE: 07/21/20 AGE: 80 : 38 SEX: F ROOM/BED: D.2232 AUTHOR: KHANH BURGESS PHYSICIAN: REFERRING PHYSICIAN: SYDNIE BUCKNER MD DATE OF SERVICE: 07/30/20 Discharge Plan Patient Name: RADHA KNIGHT Facility: [facility]:[place] : 1940 Planned Disposition: Anticipated Discharge Date: Discharge Date: Expected LOS: Initial Reviewer: [id number] Initial Review Date: 07/21/2020 Generated: 07/30/20 2:46 pm Comments DCP- Discharge Planning Updated by [email or web address]: Ines Correia on 07/30/20 12:[address] Patient Name: RADHA KNIGHT Admission Status: ER Accout number: [id number] Admission Date: 07-21-2020 : 1940 Admission Diagnosis:URINARY TRACT INFECTION, SITE NOT SPECIFIED Attending: SYDNIE BUCKNER Current LOS: 9 Anticipated DC Date: Planned Disposition: Primary Insurance: MEDICARE A & B Discharge Planning Comments: DC SUM, DC MED REC, AND MAR FAXED TO [facility]. RN TO CALL REPORT AND [facility] WILL SET UP PRENATAL TEACHER TIME. CM TO FOLLOW NEEDED. Data Analytics Analyst: Ines Correia DCP- Discharge Planning Updated by [email or web address]: Ines Correia on 07/30/20 9:[address] Patient Name: RADHA KNIGHT Admission Status: ER Accout number: [id number] Admission Date: 07-21-2020 : 1940 Admission Diagnosis:URINARY TRACT INFECTION, SITE NOT SPECIFIED Attending: SYDNIE BUCKNER Current LOS: 9 Anticipated DC Date: Planned Disposition: Primary Insurance: MEDICARE A & B Discharge Planning Comments: UPDATED LABS AND CLINICALS FAXED TO [facility]. Data Analytics Analyst: Ines Correia Appended by Ines Correia on 07/30/2020 10:49 CDT: IMM SIGNED. PATIENT IN AGREEMENT WITH GOING TO [facility] TODAY, THEY HAVE ACCEPTED HER AND HAVE A BED AVAILABLE. I CONTACTED DR. BUCKNER'S OFFICE TO NOTIFY ACCEPTANCE. ANTICIPATE DC ORDER SOON. DCP- Discharge Planning Updated by [email or web address]: Tala Denney on 07/29/20 9:[address] REFERRAL SENT TO [facility] DCP- Discharge Planning Updated by [email or web address]: Ines Correia on 07/23/20 1:[address] Patient Name: RADHA KNIGHT Admission Status: ER Accout number: [id number] Admission Date: 07-21-2020 : 1940 Admission Diagnosis:URINARY TRACT INFECTION, SITE NOT SPECIFIED Attending: SYDNIE BUCKNER Current LOS: 2 Anticipated DC Date: Planned Disposition: Primary Insurance: MEDICARE A & B Discharge Planning Comments: CM met with patient AND HER DAUGHTER IN LAW EDILMA at bedside after explaining CM role and obtaining verbal consent. CM discussed availability / needs of home health, REHAB and medical equipment. PATIENT CONFUSED AT THIS TIME. FAMILY STATES SHE HAS EQUIPMENT AT HOME AND HAS 24 HR CARE 7 DAYS PER WEEK WITH [facility]. SON AND DUAGHTER LIVE CLOSE TO HER AND HER . FAMILY PLANS FOR HER TO RETURN HOME WHEN MENTATION HAS IMPROVED. I ANTICIPATE POSSIBLE NEED FOR REHAB. CM TO FOLLOW AND ASSIST NEEDED. Data Analytics Analyst: Ines Correia DCPIA - Discharge Planning Initial Assessment Updated by [email or web address]: Ines Correia on 07/23/20 2:22 pm * Is the patient Alert and Oriented? No * PCP SITA * Pharmacy [facility] * Preadmission Environment Other * Facility Name [facility] * Other Equipment CANE, ELEVATED TOILET, GRAB BARS, WALKER, SC, ROLATOR WALKER * List name and contact numbers for known caregivers / representatives who currently or will assist patient after discharge: [phone] * Community resources currently utilized Private Duty Care * Has this patient been hospitalized within the prior 30 days at any hospital? Yes Coverage Notice Reviewer: [email or web address] Compa Correia Notice Issued Date-Time: 07/30/2020 10:46 Notice Type: IM Discharge Notice Notice Delivered To: Family Member Relationship to Patient: Chemistry Teacher Name: DAUGHTER INLAW Delivery Method: HAND - Hand Delivered Hodan Days: Prior Verbal Notification: Recipient Understood Notice: Yes Recipient Signature: Yes Med Rec Note Co-signed by Attending: Coverage Notice Comment: Last DP export: 07/30/20 9:53 a Patient Name: RADHA KNIGHT Page [phone] at 1347 All edits/amendments must be made on the electronic document DICTATION DATE: 07/30/201346 R DEVELOPER: ANEL 07/30/201346 RPT#: [id number] DC DATE: STATUS: ADM IN [facility] [address] [place] [address] END OF REPORT
[2020-07-30 14:18] VITALS: BP 178/70
--- NOTE | 2020-07-30 15:13 | NUR ---
DC TO [facility] THIS TIME. NO C/O NOTED OR VOICED AT THIS TIME. TRANSFERRED TO VIA THIS NURSE AND MANAGER MOTOR. NO C/O NOTED UPON DEPARTURE. STABLE CONDITION UPON DEPARTURE.
--- NOTE | 2020-07-30 17:12 | NUR ---
OT NOTE: PT COMPLETED BED MOBILITY WITH MAX AX 2. PT COMPLETED EOB SITTING WITH CGA. PT EXHIBITED CONFUSION AND DECREASED SAFETY AWARENESS. PT COMPLETED UB/LB HYGIENE TASKS AT EOB WITH MAX A. PT CATHER LEAKING. NURSING NOTIFIED. [phone] THANK YOU,RAH JIMENEZ
--- NOTE | 2020-08-02 09:23 | MORECARE ---
CASE MANAGEMENT DISCHARGE SUMMARY PATIENT: RADHA KNIGHT KAZ UNIT: [id number] ADM DATE: 07/21/20 AGE: 80 : 38 SEX: F ROOM/BED: D.2232 AUTHOR: KHANH BURGESS PHYSICIAN: REFERRING PHYSICIAN: SYDNIE BUCKNER MD DATE OF SERVICE: 08/02/20 Discharge Plan Patient Name: RADHA KNIGHT Facility: [facility]:[place] : 1940 Planned Disposition: Anticipated Discharge Date: Discharge Date: 07/30/2020 Expected LOS: Initial Reviewer: [id number] Initial Review Date: 07/21/2020 Generated: 08/02/20 10:22 am Comments DCP- Discharge Planning Updated by [email or web address]: Ines Correia on 07/30/20 12:[address] Patient Name: RADHA KNIGHT Admission Status: ER Accout number: [id number] Admission Date: 07-21-2020 : 1940 Admission Diagnosis:URINARY TRACT INFECTION, SITE NOT SPECIFIED Attending: SYDNIE BUCKNER Current LOS: 9 Anticipated DC Date: Planned Disposition: Primary Insurance: MEDICARE A & B Discharge Planning Comments: DC SUM, DC MED REC, AND MAR FAXED TO [facility]. RN TO CALL REPORT AND [facility] WILL SET UP BRUSH AND BROOM CLIPPER TIME. CM TO FOLLOW NEEDED. Automobile Glass Technician: Ines Correia DCP- Discharge Planning Updated by [email or web address]: Ines Correia on 07/30/20 9:[address] Patient Name: RADHA KNIGHT Admission Status: ER Accout number: [id number] Admission Date: 07-21-2020 : 1940 Admission Diagnosis:URINARY TRACT INFECTION, SITE NOT SPECIFIED Attending: SYDNIE BUCKNER Current LOS: 9 Anticipated DC Date: Planned Disposition: Primary Insurance: MEDICARE A & B Discharge Planning Comments: UPDATED LABS AND CLINICALS FAXED TO [facility]. Automobile Glass Technician: Ines Correia Appended by Ines Correia on 07/30/2020 10:49 CDT: IMM SIGNED. PATIENT IN AGREEMENT WITH GOING TO [facility] TODAY, THEY HAVE ACCEPTED HER AND HAVE A BED AVAILABLE. I CONTACTED DR. BUCKNER'S OFFICE TO NOTIFY ACCEPTANCE. ANTICIPATE DC ORDER SOON. DCP- Discharge Planning Updated by [email or web address]: Tala Denney on 07/29/20 9:[address] REFERRAL SENT TO [facility] DCP- Discharge Planning Updated by [email or web address]: Ines Correia on 07/23/20 1:[address] Patient Name: RADHA KNIGHT Admission Status: ER Accout number: [id number] Admission Date: 07-21-2020 : 1940 Admission Diagnosis:URINARY TRACT INFECTION, SITE NOT SPECIFIED Attending: SYDNIE BUCKNER Current LOS: 2 Anticipated DC Date: Planned Disposition: Primary Insurance: MEDICARE A & B Discharge Planning Comments: CM met with patient AND HER DAUGHTER IN LAW EDILMA at bedside after explaining CM role and obtaining verbal consent. CM discussed availability / needs of home health, REHAB and medical equipment. PATIENT CONFUSED AT THIS TIME. FAMILY STATES SHE HAS EQUIPMENT AT HOME AND HAS 24 HR CARE 7 DAYS PER WEEK WITH [facility]. SON AND DUAGHTER LIVE CLOSE TO HER AND HER . FAMILY PLANS FOR HER TO RETURN HOME WHEN MENTATION HAS IMPROVED. I ANTICIPATE POSSIBLE NEED FOR REHAB. CM TO FOLLOW AND ASSIST NEEDED. Automobile Glass Technician: Ines Correia DCPIA - Discharge Planning Initial Assessment Updated by [email or web address]: Ines Correia on 07/23/20 2:22 pm * Is the patient Alert and Oriented? No * PCP SITA * Pharmacy [facility] * Preadmission Environment Other * Facility Name [facility] * Other Equipment CANE, ELEVATED TOILET, GRAB BARS, WALKER, SC, ROLATOR WALKER * List name and contact numbers for known caregivers / representatives who currently or will assist patient after discharge: [phone] * Community resources currently utilized Private Duty Care * Has this patient been hospitalized within the prior 30 days at any hospital? Yes Coverage Notice Reviewer: [id number] - Ines Correia Notice Issued Date-Time: 07/30/2020 10:46 Notice Type: IM Discharge Notice Notice Delivered To: Family Member Relationship to Patient: Girls Tennis Coach Name: DAUGHTER INLJAQUAN Delivery Method: HAND - Hand Delivered Hodan Days: Prior Verbal Notification: Recipient Understood Notice: Yes Recipient Signature: Yes Med Rec Note Co-signed by Attending: Coverage Notice Comment: Last DP export: 07/30/20 12:47 p Patient Name: RADHA KNIGHT Page [id number] at 0923 All edits/amendments must be made on the electronic document DICTATION DATE: 08/02/20921 PAINTINGS RESTORER: ANEL 08/02/20921 RPT#: [id number] DC DATE:07/30/20 STATUS: DIS IN [facility] [address] [place] [address] END OF REPORT
== END 2020-07-30 15:17 | DRG 689 ==
LOC: D.ER 09:17 → D.MS 14:20
PROVIDERS: Family Medicine; Internal Medicine Nephrology; ADMIT Family Medicine; ATTEND Family Medicine
DX: N39.0 Urinary tract infection, site not specified (principal); G93.41 Metabolic encephalopathy; N18.4 Chronic kidney disease, stage 4 (severe); N17.9 Acute kidney failure, unspecified; R33.9 Retention of urine, unspecified; I12.9 Hypertensive chronic kidney disease with stage 1 through stage 4 chronic kidney disease, or unspecified chronic kidney disease; R41.0 Disorientation, unspecified; R41.82 Altered mental status, unspecified; F03.90 Unspecified dementia, unspecified severity, without behavioral disturbance, psychotic disturbance, mood disturbance, and anxiety; N26.1 Atrophy of kidney (terminal)